=== PATIENT | female | born 1935 | race Caucasian/White ===

== ENCOUNTER 2017-07-24 10:32 | Inpatient (IN) | payer OTHER, MEDICARE ==
[~2017-07-24] VITALS: Ht 154.9 cm; Wt 49.6 kg
[~2017-07-24 10:32] MED LIST: ACIDOPHILUS1 EACH PO; AZITHROMYCIN250 M1 PO; CALCITRIOL0.5 MC1 PO; CEFUROXIME250 M1 PO; COUMADIN2.5 M1 PO; FUROSEMIDE20 M1 PO; FUROSEMIDE40 M1 PO; IRON325 M3 PO; LASIX40 M1 PO; MAGNESIUM400 M1 PO; METOPROLOL TART25 M1 PO; OMEPRAZOLE20 M2 PO; POTASSIUM CHLO20 ME2 PO; PROZAC20 M2 PO; QUESTRAN PACKET4 GM PO; TUMS200 MG PO; VITAMIN D2000 UNIT PO
[2017-07-24] MEDS ORDERED: FOLIC ACID1 M1 PO (10:52)
[2017-07-24] MEDS ORDERED: DIGOXIN250 MCG PO (10:52)
[2017-07-24] MEDS ORDERED: BUSPIRONE HCL5 M1 PO (10:53)
[2017-07-24] MEDS ORDERED: DILTIAZEM HCL30 M1 PO (10:54)
[2017-07-24] MEDS ORDERED: ZOFRAN4 M2 PO (10:55)
[2017-07-24] MEDS ORDERED: SIMETHICONE80 M1 PO (10:55)
--- NOTE | 2017-07-24 11:20 | ED AMS/SEIZURE/WEAK/DIZZY ---
History of Present Illness General Chief Complaint: General Adult Stated Complaint: BIBA FOR +N/?UTI Source: patient, family, old records, EMS Exam Limitations: no limitations Vital Signs & Intake/Output Vital Signs & Intake/Output Vital Signs Date Time Temp Pulse Resp B/P B/P Pulse O2 O2 Flow FiO2 Mean Ox Delivery Rate 07/27 1600 Nasal 2.0L Cannula 07/27 1508 97.8 63 20 116/60 92 07/27 0926 Nasal 2.0L Cannula 07/27 0915 Nasal 2.0L Cannula 07/27 0800 94 Nasal 2.0L Cannula 07/27 0720 97.8 56 20 128/72 92 Nasal Cannula 07/26 2358 97.9 69 16 116/60 100 Nasal 2.0L Cannula 07/26 2113 Nasal 2.0L Cannula ED Intake and Output 07/27 0000 07/26 1200 Intake Total 180 360 Output Total 100 350 Balance 80 10 Intake, Oral 180 360 Output, Urine 100 350 Allergies Coded Allergies: clarithromycin (From BIAXIN) (Severe, DIARRHEA 02/23/17) lactose (UNKNOWN 07/24/17) Reconcile Medications Buspirone HCl 5 MG TABLET 1 TAB PO BID MENTAL HEALTH (Reported) Cholestyramine (With Sugar) (Questran Packet) 4 GRAM POWD.PACK 1 PAC PO DAILY GI (Reported) Digoxin 250 MCG TABLET 1 TAB PO DAILY HEART (Reported) Diltiazem HCl 30 MG TABLET 1 TAB PO BID HEART (Reported) Fluoxetine HCl (Prozac) 20 MG CAPSULE 1 CAP PO QAM MENTAL HEALTH (Reported) Folic Acid 1 MG TABLET 1 TAB PO DAILY SUPPLEMENT (Reported) Furosemide 40 MG TABLET 1 TAB PO DAILY heart health take one pill daily Lactobacillus Acidophilus (Acidophilus) 1 EACH CAPSULE 2 CAP PO DAILY PROBIOTIC (Reported) Magnesium Oxide (Magnesium) 400 MG CAPSULE 1 CAP PO BID SUPPLEMENT (Reported) Metoprolol Tartrate 25 MG TABLET 1 TAB PO BID HEART/BLOOD (Reported) Ondansetron HCl (Zofran) 4 MG TABLET 1 TAB PO Q8P PRN NAUSEA/VOMITING ( Reported) Potassium Chloride 20 MEQ TAB.ER.PRT 1 TAB PO DAILY SUPPLEMENT (Reported) Simethicone 80 MG TAB.CHEW 1 TAB PO Q6-PRN PRN GAS (Reported) Warfarin Sodium (Coumadin) 2.5 MG TABLET 1 TAB PO DAILY BLOOD THINNER ( Reported) Triage Note: BIBA FROM [facility], SENT BY [facility], C/O WEAKNESS, FREQUENT URINATION, INCREASED LEG SWELLING X A FEW DAYS. DENIES CHEST PAIN OR SOB. Triage Nurses Notes Reviewed? yes Onset: Abrupt Duration: day(s): (1), constant Timing: recent history Severity: moderate Severity Numbers: 5 No Modifying Factors: none Associated Symptoms: denies HPI: 81-year-old female history of A. fib on Coumadin CHF valve replacement presents brought in by ambulance from assisted living after the patient was seen by the visiting nurse today complaining of generalized malaise weakness shortness of breath and leg swelling has been getting worse over the past week. She states she gained 5 pounds from yesterday. No associated chest pain palpitations dizziness lightheadedness she's been compliant with taking all of her medications including her Coumadin and Lasix which she is on 40 mg once a day. 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 No fever chills urinary urgency frequency dysuria. (Daryn Pham) Past History Travel History Traveled to [place] past 21 day No Medical History Any Pertinent Medical History? 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 MOTHER, ; Cause: Pancreatic cancer. Hx Contributory? No (Daryn Pham) Review of Systems Review of Systems Constitutional: Reports: see HPI. Comments Review of systems: See HPI, All other systems negative. Constitutional, no chills no fever HEENT: no sore throat no congestion, Cardiovascular: No chest pain , no palpitation Skin: no rashes, no change in skin Respiratory: No dyspnea no cough no sputum GI: No nausea no vomiting, no diarrhea, no bloating/constipation : No dysuria No hematuria, no frequency Muscle skeletal: No joint pain, no back pain Neurologic: , no headache Psych: No stress Heme/endocrine: No bruising (Daryn Pham) Physical Exam Physical Exam General Appearance: alert, awake Comments: Well-developed well-nourished person in no acute distress HEENT: Normal EENT exam; PERRL, EOMI, HEAD is atraumatic. moist mucous membranes. Neck: Supple,normal range of motion Back: Nontender, no CVA tenderness. Full range of motion Cardiovascular: Irregular rate and rhythm no murmurs Respiratory: Chest nontender.There were no bony deformities, no asymmetry. No respiratory distress. Patient speaking in full complete sentences. Crackles at the bases bilaterally Abdomen: Soft, nontender nondistended, no appreciable organomegaly. Normal bowel sounds. No rebound/guarding, No ascites. Extremity: 3+ b/l le edema, full range of motion of extremities, Neuro: Alert oriented x3, motor sensory normal, There were no obvious focal neurologic abnormalities. Skin: No appreciable rash on exposed skin, skin is warm and dry. Psych: Mood and affect is normal, memory and judgment is normal. Core Measures ACS in differential dx? Yes CVA/TIA Diagnosis No Sepsis Present: No Sepsis Focused Exam Completed? No (Daryn Pham) Progress Differential Diagnosis: arrythmia, anemia, dehydration, electrolyte imbalance, pneumonia, UTI/pyelo, chf ami Plan of Care: Orders Procedure Date/time Status MISSING MEDICATION FORM 07/27 906 Active CBC WITHOUT DIFFERENTIAL 07/28 815 Complete Anticipated Discharge 07/27 UNK Active OXYGEN 07/26 UNK Complete OXYGEN DAILY CHARGE 07/26 UNK Complete Current Medications Sig/Eulalia Start time Last Medication Dose Stop Time Status Admin Furosemide 40 MG 7:30 AM, & 4:30 PM 07/28 0730 AC (Lasix) Amoxicillin/ 875 MG BID 07/27 999 AC 07/27 Clavulanate Potassium 1049 (Augmentin) Cholestyramine Resin 1 PAC DAILY 07/25 1000 AC 07/27 (Questran Light(W/ 1049 Nutrasweet)Pack) Fluoxetine HCl 20 MG QAM 07/25 1000 AC 07/27 (Prozac) 1048 Folic Acid 1 MG DAILY 07/25 1000 AC 07/27 (Folic Acid) 1049 Lactobacillus 2 CAP DAILY 07/25 1000 AC 07/27 Acidophilus 1048 (Probiotic) Polyethylene Glycol 17 GM DAILY 07/25 1000 AC 07/27 (Miralax) 1048 Potassium Chloride 20 MEQ DAILY 07/25 1000 AC 07/27 (K-Dur) 1049 Ondansetron HCl 4 MG Q6P PRN 07/25 0100 AC (Zofran) Buspirone HCl 5 MG BID 07/24 2199 AC 07/27 (Buspar) 1049 Magnesium Oxide 400 MG BID 07/24 2199 AC 07/27 (Mag-Ox) 1049 Melatonin 5 MG AT BEDTIME 07/24 2199 AC 07/26 (Melatonin) 204 Acetaminophen 650 MG Q6P PRN 07/24 1800 AC (Tylenol) Morphine Sulfate 2 MG Q4P PRN 07/24 1800 AC (MORPHINE SULFATE) Simethicone 80 MG Q6-PRN PRN 07/24 1745 AC (Mylicon) Laboratory Tests 07/27/17 1220: CBC w Diff NO MAN DIFF REQ, RBC 3.93 L, MCV 96.1, MCH 31.4 H, MCHC 32.7 L, RDW 18.7 H, MPV 9.5, Gran % 73.7, Lymphocytes % 16.0 L, Monocytes % 9.6 H, Eosinophils % 0.3, Basophils % 0.4, Absolute Granulocytes 6.1, Absolute Lymphocytes 1.3, Absolute Monocytes 0.8 H, Absolute Eosinophils 0, Absolute Basophils 0 07/27/17 0757: Anion Gap 5, Estimated GFR > 60, BUN/Creatinine Ratio 35.0 H, PT 18.6 H, INR 1.70 H labs ordered, old records reviewed, case d/w dr dukes agrees with plan Corrected calcium within normal limits I spoke with Dr. Hassan covering for Dr. Cortes who agrees with plan patient medicated with Lasix 20 mg IV, patient has had episodes of bradycardia down into the 40s however she is alert and oriented length her her x-ray findings, lab work given presentation shortness of breath weight gain leg swelling I believe premature discharge would BE medically harmful which are in agreement with. Patient is not septic there is no signs of infection no elevated white blood cell count to explain elevated lactic acid. They feel comfortable plan and need for admission as well. Diagnostic Imaging: Viewed by Me: Radiology Read. Discussed w/RAD: Radiology Read. Initial ED EKG: afib at 70, nonspecificis [facility] (Daryn Pham) Departure Departure Time of Disposition: 1517 Disposition: STILL A PATIENT Condition: Stable Clinical Impression Primary Impression: CHF exacerbation Secondary Impressions: Bradycardia, Lactic acidosis Referrals: Elana MCKEON,Jesus Nguyen (PCP/Family) Departure Forms: Customer Survey General Discharge Information Admission Note Spoke With: Richard Montalvo MD Documentation of Exam: Documentation of any treatments & extenuating circumstances including Concerns Regarding Discharge (functional status, medication knowledge or non-compliance, living conditions, etc.) that warrant an admission rather than observation: [IV diuresis trend labs and electrolytes premature discharge would BE medically harmful cardiology consult (Daryn Pham) PA/[employer] Co-Sign Statement Statement: ED Attending supervision documentation- x I saw and evaluated the patient. I have also reviewed all the pertinent lab results and diagnostic results. I agree with the findings and the plan of care as documented in the PA's/LAB[employer]ER [employer]'s documentation. LIMON, CHF, pneumonia [] I have reviewed the ED Record and agree with the PA's/LAB[employer]ER [employer]'s documentation. [] Additions or exceptions (if any) to the PAs/LAB[employer]ER [employer]'s note and plan are summarized below: [] (Bryce MCKEON,Ahmet) Departure Forms: Customer Survey General Discharge Information Admission Note Spoke With: Richard Montalvo MD Documentation of Exam: Documentation of any treatments & extenuating circumstances including Concerns Regarding Discharge (functional status, medication knowledge or non-compliance, living conditions, etc.) that warrant an admission rather than observation: [IV diuresis trend labs and electrolytes premature discharge would BE medically harmful cardiology consult
[2017-07-24 12:38] LABS: ABSOLUTE BASOPHIL COUNT 0 /CUMM (0.0-0.2); ABSOLUTE EOSINOPHIL COUNT 0 /CUMM (0.0-0.7); ABSOLUTE GRANULOCYTE CT 3.9 /CUMM (1.4-6.5); ABSOLUTE LYMPH COUNT 0.9 /CUMM (1.2-3.4); ABSOLUTE MONOCYTE COUNT 0.5 /CUMM (0.10-0.60); BASOPHIL % 0.7 % (0.0-2.0); EOSINOPHIL % 0.3 % (0-5); GRANULOCYTE % 72.3 % (42.2-75.2); HEMATOCRIT 36.5 % (37-47); MEAN CORPUSCULAR HGB 31.3 PG (27.0-31.0); MEAN CORPUSCULAR HGB CONC 33.4 G/DL (33.0-37.0); MEAN CORPUSCULAR VOLUME 93.7 FL (81.0-99.0); MEAN PLATELET VOLUME 9.5 FL (7.4-10.4); PLATELET COUNT 138 /CUMM (130-400); RBC DISTRIBUTION WIDTH 17.1 % (11.5-14.5); WHITE BLOOD CELL COUNT 5.4 /CUMM (4.8-10.8)
[2017-07-24 12:58] LABS: PT 28.4 SEC (9.4-12.5); PTT 39 SEC (25-37)
--- NOTE | 2017-07-24 14:08 | RADIOLOGY REPORT ---
EXAMINATION: XR PORTABLE CHEST CLINICAL INFORMATION: Weakness, SOB and weight gain. COMPARISON: Chest CT 05/04/2017. TECHNIQUE: Portable frontal view of the chest was obtained. FINDINGS: The lungs are hypoexpanded with no acute consolidation seen. Increased interstitial markings are seen in both lung bases likely scarring. The heart size is enlarged. The pulmonary vascularity is normal. There are median sternotomy sutures from previous aortic valve replacement. No gross bony abnormality seen. IMPRESSION: No acute pulmonary process seen. Cardiomegaly without congestion.
--- NOTE | 2017-07-24 15:58 | History & Physical ---
Michelle MCKEON,[facility] 07/24/17 1557: General Information and HPI MD Statement: I have seen and personally examined NENA LUJAN and documented this H&P. The patient is a 81 year old F who presented with a patient stated chief complaint of [shortness of breath and lower extremity swelling]. Source of Information: patient Exam Limitations: no limitations History of Present Illness: MS. Lujan is an 81-year-old lady with past medical history of B-cell lymphoma in remission, atrial fibrillation, bioprosthetic valve, DVT on Coumadin, lupus anticoagulant, thalassemia, iron deficiency anemia, osteoporosis, GERD, admitted 2 times in April for acute on chronic CHF and pneumonia now presents with shortness of breath and lower extremity edema that she noticed last night. According to the patient, she was admitted to [facility] in April for pneumonia and was sent to [facility] [place] on discharge, from where she was sent to the assisted living last Monday. She Has been experiencing some shortness of breath since discharge from [facility] [place] which was worsened last night. She does not use oxygen at home. Has chronic orthopnea and uses 3 pillows to sleep at night. She gained almost 5 pounds (from 107 pounds 112 pounds ) since yesterday. Denies any chest pain or palpitation but endorses right-sided chest pressure, 6/10 in intensity with no radiation or aggravating/relieving factors but thinks the pain is because of her anxiety. She also noticed worsening swelling in her legs last night, states she could not get up and walk because of the weakness and swelling in her legs. She also complains of decreased appetite, nausea, and at least 2 episodes of vomiting per week which is bilious without any abdominal pain, diarrhea or constipation. Denies any fever/chills, cough, sputum production, urinary symptoms, sick contacts or recent travel. Allergies/Medications Allergies: Coded Allergies: clarithromycin (From BIAXIN) (Severe, DIARRHEA 02/23/17) lactose (UNKNOWN 07/24/17) Home Med list Buspirone HCl 5 MG TABLET 1 TAB PO BID MENTAL HEALTH (Reported) Cholestyramine (With Sugar) (Questran Packet) 4 GRAM POWD.PACK 1 PAC PO DAILY GI (Reported) Digoxin 250 MCG TABLET 1 TAB PO DAILY HEART (Reported) Diltiazem HCl 30 MG TABLET 1 TAB PO BID HEART (Reported) Fluoxetine HCl (Prozac) 20 MG CAPSULE 1 CAP PO QAM MENTAL HEALTH (Reported) Folic Acid 1 MG TABLET 1 TAB PO DAILY SUPPLEMENT (Reported) Furosemide 40 MG TABLET 1 TAB PO DAILY heart health take one pill daily Lactobacillus Acidophilus (Acidophilus) 1 EACH CAPSULE 2 CAP PO DAILY PROBIOTIC (Reported) Magnesium Oxide (Magnesium) 400 MG CAPSULE 1 CAP PO BID SUPPLEMENT (Reported) Metoprolol Tartrate 25 MG TABLET 1 TAB PO BID HEART/BLOOD (Reported) Ondansetron HCl (Zofran) 4 MG TABLET 1 TAB PO Q8P PRN NAUSEA/VOMITING ( Reported) Potassium Chloride 20 MEQ TAB.ER.PRT 1 TAB PO DAILY SUPPLEMENT (Reported) Simethicone 80 MG TAB.CHEW 1 TAB PO Q6-PRN PRN GAS (Reported) Warfarin Sodium (Coumadin) 2.5 MG TABLET 1 TAB PO DAILY BLOOD THINNER ( Reported) Past History Travel History Traveled to [place] past 21 day No Medical History Neurological: NONE EENT: NONE Cardiovascular: AFIB, CHF, VALVE REPLACEMENT Respiratory: NONE Gastrointestinal: GERD Hepatic: NONE Renal: NONE Musculoskeletal: NONE Psychiatric: NONE Endocrine: NONE Blood Disorders: anemia Cancer(s): 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 MOTHER, ; Cause: Pancreatic cancer. Psychosocial History Where do you live? Assisted Living ETOH Use: denies use Illicit Drug Use: denies illicit drug use Review of Systems Review of Systems Constitutional: Reports: weakness. EENTM: Reports: no symptoms. Cardiovascular: Reports: chest pain (Pressure), orthopena, peripheral edema. Respiratory: Reports: orthopnea, short of breath. GI: Reports: no symptoms. Genitourinary: Reports: no symptoms. Musculoskeletal: Reports: no symptoms. Skin: Reports: no symptoms. Neurological/Psychological: Reports: anxiety. Hematologic/Endocrine: Reports: no symptoms. Immunologic/Allergic: Reports: no symptoms. All Other Systems: Reviewed and Negative Exam & Diagnostic Data Last 24 Hrs of Vital Signs/I&O Vital Signs Date Time Temp Pulse Resp B/P B/P Pulse O2 O2 Flow FiO2 Mean Ox Delivery Rate 03/05 1850 97.2 56 18 119/78 100 Nasal 2.0L Cannula 07/24 1535 48 16 121/61 100 Nasal 2.0L Cannula 07/24 1310 46 20 118/56 96 Nasal 2.0L Cannula 07/24 1226 Nasal 2.0L Cannula 07/24 1038 96.5 72 20 122/64 95 Room Air Intake & Output 07/24 1600 07/24 0800 07/24 0000 Intake Total 0 Output Total Balance 0 Intake, Oral 0 Patient 112 lb Weight Weight Reported by Patient Measurement Method Physical Exam General Appearance Alert, Oriented X3, Cooperative, No Acute Distress Skin No Rashes, No Breakdown HEENT Atraumatic, PERRLA, EOMI, Mucous Membr. moist/pink Neck Supple, No JVD Cardiovascular Normal S1, Normal S2, Irregular Lungs Crackles on lung bases Abdomen Normal Bowel Sounds, No Tenderness, Distended Extremities No Clubbing, No Cyanosis, +2 pitting edema Last 24 Hrs of Labs/Merrill: Laboratory Tests 07/24/17 1937: Lactic Acid 2.1 07/24/17 1818: Troponin I 0.06 07/24/17 1731: Urine Color YEL, Urine Clarity HAZY H, Urine pH 6.5, Ur Specific [place] 1.010, Urine Protein NEG, Urine Ketones NEG, Urine Nitrite NEG, Urine Bilirubin NEG, Urine Urobilinogen 0.2, Ur Leukocyte Esterase TRACE H, Ur Microscopic SEDIMENT EXAMINED, Urine RBC RARE, Urine WBC 3-5 H, Ur Epithelial Cells FEW, Urine Bacteria MANY H, Hyaline Casts MOD H, Urine Hemoglobin NEG, Urine Glucose NEG 07/24/17 1218: Anion Gap 8, Estimated GFR 60, BUN/Creatinine Ratio 41.1 H, Glucose 96, Lactic Acid 3.0 H, Calcium 7.8 L, Total Bilirubin 0.6, AST 32, ALT 34, Alkaline Phosphatase 82, Troponin I 0.05, Xci-F-Nilaquelbyd Pept 4080 H, Total Protein 4.5 L, Albumin 2.2 L, Globulin 2.3, Albumin/Globulin Ratio 1.0 L, PT 28.4 H, INR 2.58 H, APTT 39 H, CBC w Diff NO MAN DIFF REQ, RBC 3.90 L, MCV 93.7, MCH 31.3 H, MCHC 33.4, RDW 17.1 H, MPV 9.5, Gran % 72.3, Lymphocytes % 17.5 L, Monocytes % 9.2, Eosinophils % 0.3, Basophils % 0.7, Absolute Granulocytes 3.9, Absolute Lymphocytes 0.9 L, Absolute Monocytes 0.5, Absolute Eosinophils 0, Absolute Basophils 0, Digoxin 4.0 *H Microbiology 07/24 1730 URINE ROUT: Urine Culture - CAN Cancelled: 07/24 1730 URINE ROUT: Urine Culture - RECD Diagnostic Data EKG Results Atrial fibrillation Heart Rate 57 CXR Results IMPRESSION: No acute pulmonary process seen. Cardiomegaly without congestion. Assessment/Plan Assessment: MS. Lujan is an 81-year-old lady with past medical history of B-cell lymphoma in remission, atrial fibrillation, bioprosthetic valve, DVT on Coumadin, lupus anticoagulant, thalassemia, iron deficiency anemia, osteoporosis, GERD, admitted 2 times in April for acute on chronic CHF and pneumonia now presents with shortness of breath and lower extremity edema that she noticed last night. Even though patients dose not have an elevated JVD and CXR does not show any fluid overload, and the elevated proBNP, shortness of breath, crackles on examination and lower extremity edema with abdominal distention likely suggests CHF exacerbation. Her nausea and vomiting could be due to side effects from elevated digoxin level. Problem List; 1. Acute on Chronic Diastolic CHF 2. Anasarca 2. LActic Acidosis 3. Nausea/Vomiting 4. Elevated Digoxin Levels - We will admit the patient to telemetry floor - We'll start the patient on IV Lasix 40 mg daily - Troponin and EKG x 3 to rule out ACS. - Recent echocardiogram was in February 2017 which showed ejection fraction of greater than 65% in no regional wall motion abnormality but moderate to severe right and left atrial dilatation. - Cardiology consult; awaiting recommendations. - We will repeat lactic acid level. ?? hypoperfusion. - Detox and level of 4 , We will hold digoxin for now. - Zofran as needed for nausea and vomiting - Continue rest of the home medications. DVT prophylaxis; subcutaneous heparin Patient is DNR/DNI As Ranked By This Provider Problem List: 1. Lactic acidosis 2. CHF exacerbation 3. Atrial fibrillation 4. History of DVT (deep vein thrombosis) Core Measures/Misc (02/05) Acute Coronary Syndrome ACS Diagnosis: No Congestive Heart Failure Congestive Heart Failure Diagnosis Yes Last Known EF % 65 Cerebrovascular Accident CVA/TIA Diagnosis: No VTE (View Protocol) VTE Risk Factors Age>40 No Mechanical VTE Prophylaxis d/t N/A MechProphylax Ordered No VTE Pharm Prophylaxis d/t NA PharmProphylax ordered Sepsis (View protocol) Sepsis Present: No Magdi Cooper MD 07/24/172103: Resident Review Statement Resident Statement: examined this patient, discussed with internet project manager, agreed with internet project manager Other Findings: The patient is an 81-year-old woman with a past medical history of B-cell lymphoma in remission, atrial fibrillation on coumadin, bioprosthetic aortic valve, DVT, lupus anticoagulant, thalassemia, iron deficiency anemia, osteoporosis, GERD, and 2 admissions in April 2017 for acute on chronic CHF and pneumonia. She now presents with worsening shortness of breath and leg swelling for the past 2 days. THe patient was admitted for treatment of pneumonia in [facility] in April 2017 and was subsequently sent to rehab in [facility] in May 2017. She was then released back to assisted living on Monday, 3 days ago. However, 2 days prior to presentation she developed generalized weakness, shortness of breath and leg swelling. She reported a change in her weight from 107 lbs yesterday to 112 lbs yesterday. She also experienced intermittent non- radiating right sided chest discomfort that she rates as 6/10 intensity. She also has lightheadedness and 3 pillow orthopnea-which is her baseline, but denies palpitations. She denies cough, sputum production or wheeze. She has been having nausea and vomitting at least twice weekly for the past 3 weeks and she vomitted billous fluid yesterday. She complains of poor appetite and noted abdominal bloating, distension and discomfort for the last 2 days but denied diarrhea or blood in stools. She denied dysuria or hematuria, but has noted a reduction in her urine output for the past 2 days. She denies fevers or chills. Patient states that she has been compliant on her medications including PO lasix 40 mg daily and also has been on a low salt diet. Vital signs at presentation showed a temperature of 96.5 F, Pulse 72 bpm, BP 122 /64 mmhg, R 20/min, PO2 95 % on RA. Physical exam General Appearance: Alert, Oriented X3, Cooperative, No Acute Distress Skin: No Rashes, No Breakdown HEENT: Atraumatic, PERRLA, EOMI, Mucous Membr. moist/pink Neck: Supple, No JVD, no cervical lymphadenopathy Cardiovascular: Normal S1, Normal S2, Irregularly irregular heart rhythm Lungs: Bilateral basal crepitations Abdomen: Normal Bowel Sounds, No Tenderness, Distended Neuro: CN II to XII intact, normal strenght globally. Extremities compresssion stockings in situ, No Clubbing, No Cyanosis, +2 pitting edema Significant labs WBC 5.4, Hb 12.2 g/dl, Hct 36.5%, Platelets 138/cumm. INR 2.58. Na 133, K 4.2, Cl 93, Co2 32, BUN 37, Creat 0.9, Lactic acid 3.0, Calcium 7.8 (corrected Ca 9.2 ) Pro BNP 4080, troponin 0.05. Digoxin level 4. Urinalysis trace leuk esterase, WBCs 3-5/HPF, bacteria many. Imaging: CXR no acute pulmonary process Impression 1. Acute exacerbation of heart failure with preserved ejection fraction 2. Digoxin toxicity with nausea and vomitting/gastritis 3. Lactic acidosis 4. Atrial fibrillation on coumadin 5. Anxiety and depression Plan * Admit to telemetry * Oxygen by nasal canula to keep PO2 > 92% * Diurese with IV lasix 40 mg daily * Echocardiogram in the morning * Previous echocardiogram from Feb 2017 showed EF of >65% and Moderate mitral regurgitation * Cardiology consultation * Serial EKGs and troponins X3 * Hold digoxin * IV zofran 4 mg Q 6 hrs Prn * Trand lactic acid-no sign of infection at this time * Follow up urine culture * Monitor K and Magnesium * Continue magox 400 mg BID * Continue PO metoprolol and cardizem for atrial fibrillation * INR in the morning and dose coumadin to keep INR for 2-3 * Continue buspirone and prozac * DVT prophylaxis with Coumadin * CHF diet * Pain management with tylenol PRN and IV morphine for severe pain * Code status is DNR/DNI Richard Montalvo MD 07/24/172113: Attending MD Review Statement Attending Statement Attending MD Statement: examined this patient, discuss w/resident/PA/VULCAN CREWMEMBER, agreed w/resident/PA/VULCAN CREWMEMBER, reviewed EMR data (avail), reviewed images, amended to note Attending Assessment/Plan: The patient is an 81 yo female with h/o B-cell Lymphoma (in remission), afib, s/ p bioprosthetic valve, DVT/lupus anticoagulant (on Coumadin), anemia, osteoporosis, GERD, and CHF who presented on the day of admission with c/o dyspnea and lower extremity swelling, weakness, and frequent urination x 3 days. She denied any chest pain, dyspnea, or palpitations. Has had some distension of her abdomen w/o significant pain. She has had some nausea and vomiting. Physical Exam: VS: T 06.5, P 72, R 20, BP 122/64, PO 96% on RA- 96% on 2L HEENT: eyes- PERRLA, EOMI mark- dry mucosa Neck: no JVD/bruits Chest: + rales lower 1/3 lung ovalle Cor: sl irreg, nl rate, nl S1, S2 with +2/6 sys murm LSB Abd: BS+, soft, distended (gas), non-tender Ext: 2+ edema, stasis changes, 1+ pulses Neuro: alert & oriented x 3, non-focal exam Labs/Test- as above Impression/Plan: #Acute on Chronic Preserved EF CHF- EF was > 65% on last ECHO 03/07. Has known valvular disease. BNP is over 4000. CXR w/o significant CHF. Plan: Diuresis as above (cautious)- follow I/O's and daily weights and lung exam. Cardiology consult. Check serial Troponin levels. #Gastritis- Nausea and vomiting most c/w Digoxin Toxicity with Dig level 4.0. Plan: Hold Digoxin and monitor for arrhythmia closely. Monitor K and Mg levels and avoid hypokalemia. Consider Digibind if develops arrhythmia. #Lactic Acidosis- no evidence of sepsis. Concern regarding possible ischemic bowel, although no abdominal pain. Plan: Follow-up lactate level. Follow abdominal exam. #H/O DVT- on Chronic Coumadin. Plan: Continue Coumadin INR 2-3. #Atrial Fibrillation- HR controlled at present. Plan: Continue Metoprolol/Diltiazem- hold Digoxin.
--- NOTE | 2017-07-24 21:40 | Admission Certification ---
Admission Certification Certification Statement - As attending physician, I certify that at the time of - admission, based on clinical presentation, severity of - symptoms, need for further diagnostic testing and - therapeutic interventions, and risk of adverse outcomes - without in-hospital treatment, in my clinical assessment, - this patient requires an acute hospital stay for a minimum - of two nights or longer. I have also considered psychsocial - factors such as support system, advanced age, financial - issues, cognitive issues, and failed out-patient treatments, - past re-admission history, safety of patient, and lack of - compliance as applicable. Specific rationale supporting this admission is: The patient presents with Digoxin toxicity and acute on chronic CHF. Needs telemetry admission to monitor for arrhthymia, hold Digonin, check troponins, IV Lasix. Cardiology consult, Check troponin levels.
[2017-07-25 06:39] LABS: PT 28.4 SEC (9.4-12.5)
--- NOTE | 2017-07-25 07:14 | PN- Housestaff ---
Michelle MCKEON,[facility] 07/25/17 0714: Subjective Follow-up For: 1. Acute on Chronic Diastolic CHF 2. Anasarca 2. LActic Acidosis 3. Nausea/Vomiting 4. Elevated Digoxin Levels Subjective: Patient resting cofortably, no new complaints, Continues to have SOB and peripheral edema. Review of Systems Constitutional: Reports: malaise, weakness. EENTM: Reports: no symptoms. Cardiovascular: Reports: orthopena, peripheral edema. Respiratory: Reports: short of breath. Gastrointestinal: Reports: no symptoms. Genitourinary: Reports: no symptoms. Musculoskeletal: Reports: no symptoms. Skin: Reports: no symptoms. Neurological/Psychological: Reports: no symptoms. Hematologic/Endocrine: Reports: no symptoms. Immunologic/Allergic: Reports: no symptoms. Objective Last 24 Hrs of Vital Signs/I&O Vital Signs Date Time Temp Pulse Resp B/P B/P Pulse O2 O2 Flow FiO2 Mean Ox Delivery Rate 07/25 1422 98.1 52 18 97/52 98 Nasal 2.0L Cannula 07/25 1043 106/62 07/25 1043 54 106/62 07/25 0906 100 Nasal 2.0L Cannula 07/25 0718 97.9 54 16 106/62 100 Nasal 2.0L Cannula 07/24 2344 96.8 55 18 108/69 100 Nasal 2.0L Cannula 07/24 1850 97.2 56 18 119/78 100 Nasal 2.0L Cannula Intake & Output 07/25 1600 07/25 0800 07/25 0000 Intake Total Output Total 1050 Balance -1050 Number 2 Bowel Movements Output, Urine 1050 Patient 107 lb Weight Physical Exam General Appearance: Alert, Oriented X3, Cooperative, malnourished Skin: No Rashes, No Breakdown Cardiovascular: Normal S1, Normal S2, Irregular Lungs: basilar crackles Abdomen: Normal Bowel Sounds, Soft, No Tenderness, Distended Extremities: No Clubbing, No Cyanosis, +2-3 pitting edema Current Medications: Current Medications Sig/Eulalia Start time Last Medication Dose Route Stop Time Status Admin Acetaminophen 650 MG Q6P PRN 07/24 1800 AC PO Atropine Sulfate 0.5 MG ONCE ONE 07/25 1700 UNVr SC 07/25 1701 Buspirone HCl 5 MG BID 07/24 2200 AC 07/25 PO 1043 Cholestyramine Resin 1 PAC DAILY 07/25 1000 AC 07/25 PO 1043 Dextrose 25 GM ONCE ONE 07/25 1700 UNVr IV 07/25 1701 Diltiazem HCl 30 MG BID 07/24 2200 AC 07/25 PO 1043 Fluoxetine HCl 20 MG QAM 07/25 1000 AC 07/25 PO 1043 Folic Acid 1 MG DAILY 07/25 1000 AC 07/25 PO 1043 Furosemide 0 .STK-MED ONE 07/25 0739 DC IV Furosemide 40 MG 7:30AM 07/25 0730 AC 07/25 IV 0815 Furosemide 0 .STK-MED ONE 07/24 1919 DC IV Furosemide 20 MG ONCE ONE 07/24 1800 DC 07/24 IV 07/24 1801 1919 Heparin Sodium 0 .STK-MED ONE 07/25 0028 DC (Porcine) .ROUTE Heparin Sodium 5,000 UNIT Q8 07/24 220 DC 07/25 (Porcine) SC 0030 Lactobacillus 2 CAP DAILY 07/25 1000 AC 07/25 Acidophilus PO 1043 Magnesium Oxide 400 MG BID 07/24 2200 AC 07/25 PO 1043 Magnesium Sulfate 1 GM Q2H 07/25 0915 DC 07/25 Dextrose/Water 100 ML IV 07/25 1314 1239 Melatonin 5 MG AT BEDTIME 07/24 2200 AC PO Metoprolol Tartrate 25 MG BID 07/24 2359 AC 07/25 PO 1043 Morphine Sulfate 2 MG Q4P PRN 07/24 1800 AC IV Ondansetron HCl 4 MG Q6P PRN 07/25 0100 AC IV Ondansetron HCl 4 MG ONCE ONE 07/24 1845 DC 07/24 PO 07/24 1846 1845 Polyethylene Glycol 17 GM DAILY 07/25 1000 AC 07/25 PO 1043 Potassium Chloride 0 .STK-MED ONE 07/25 1006 DC PO Potassium Chloride 20 MEQ DAILY 07/25 1000 AC 07/25 PO 1043 Potassium Chloride 40 MEQ ONCE ONE 07/25 0915 DC 07/25 PO 07/25 0916 1043 Simethicone 80 MG Q6-PRN PRN 07/24 1745 AC PO Last 24 Hrs of Lab/Merrill Results Last 24 Hrs of Labs/Mics: Laboratory Tests 07/25/17 0807: Anion Gap 5, Estimated GFR > 60, BUN/Creatinine Ratio 37.5 H, Magnesium 1.5 L 07/25/17 0615: Lactic Acid 0.8, PT 28.4 H, INR 2.58 H 07/25/17 0045: Troponin I 0.06 07/24/17 1937: Lactic Acid 2.1 07/24/17 1818: Troponin I 0.06 07/24/17 1731: Urine Color YEL, Urine Clarity HAZY H, Urine pH 6.5, Ur Specific [place] 1.010, Urine Protein NEG, Urine Ketones NEG, Urine Nitrite NEG, Urine Bilirubin NEG, Urine Urobilinogen 0.2, Ur Leukocyte Esterase TRACE H, Ur Microscopic SEDIMENT EXAMINED, Urine RBC RARE, Urine WBC 3-5 H, Ur Epithelial Cells FEW, Urine Bacteria MANY H, Hyaline Casts MOD H, Urine Hemoglobin NEG, Urine Glucose NEG Microbiology 07/24 1730 URINE ROUT: Urine Culture - CAN Cancelled: 07/24 1730 URINE ROUT: Urine Culture - RES GRAM NEGATIVE RODS Assessment/Plan Assessment: MS. Lujan is an 81-year-old lady with past medical history of B-cell lymphoma in remission, atrial fibrillation, bioprosthetic valve, DVT on Coumadin, lupus anticoagulant, thalassemia, iron deficiency anemia, osteoporosis, GERD, admitted 2 times in April for acute on chronic CHF and pneumonia now presents with shortness of breath and lower extremity edema that she noticed last night. Problem List; 1. Acute on Chronic Diastolic CHF 2. Anasarca 2. LActic Acidosis - resolved 3. Nausea/Vomiting 4. Elevated Digoxin Levels - Continue IV Lasix 40 mg daily - ACS ruled out with negative Troponin and EKG x 3. - Recent Echo in Feb 2017, no need for repeat echocardiogram. - Cardiology consult; awaiting recommendations. - Continue to hold digoxin, will repeat levels tomorrow. - Zofran as needed for nausea and vomiting - Continue rest of the home medications. DVT prophylaxis; subcutaneous heparin Patient is DNR/DNI Problem List: 1. Fluid overload 2. Lactic acidosis 3. CHF exacerbation Pain Ratin Pain Location: None Pain Goal: Remain pain free Pain Plan: None Tomorrow's Labs & Rationales: BEP(On IV Lasix) Genet MCKEON,Jeannie 07/26/17 0739: Attending MD Review Statement Attending Statement Attending MD Statement: examined this patient, discuss w/resident/PA/AGED OR DISABLED CARER, agreed w/resident/PA/AGED OR DISABLED CARER, reviewed EMR data (avail), discussed with nursing, reviewed images, amended to note Attending Assessment/Plan: Patient seen and examined. Resting comfortably not in acute distress. Proximal feeling better compared to presentation. Denies shortness of breath or chest pain. Currently hemodynamically stable. On examination she has decreased breath sounds in the bases with bibasilar crackles. She has bilateral pedal edema. Continue current dose of diuretics. Continue to hold digoxin.
--- NOTE | 2017-07-25 14:37 | Cons- Cardiology ---
General Information and HPI Consulting Request Date of Consult: 07/25/17 Requested By: Jeannie De León MD Reason for Consult: Congestive heart failure History of Present Illness: The patient is an 81-year-old female with history of B-cell lymphoma in remission, paroxysmalatrial fibrillation, bioprosthetic aortic valve, lupus anticoagulant, chronic diastolic heart failure, and DVT on Coumadin. She presented with complaint of cough, shortness of breath, and weakness. The patient was seen by her visiting nurse this morning who reported that she was not feeling well and arrange for her to be sent to the hospital. She had a cough for the past few weeks, and the shortness of breath began this morning. The cough is productive of yellowish greenish sputum. She is taking 40 mg per day of Lasix which was recently increased on her previous admission. The patient recently moved to [facility], [place]. No chest pain. No syncope. No lightheadedness or dizziness. No nausea or vomiting. She was treated with calcium gluconate in the emergency department. Allergies/Medications Allergies: Coded Allergies: clarithromycin (From BIAXIN) (Severe, DIARRHEA 02/23/17) lactose (UNKNOWN 07/24/17) Home Med List: Buspirone HCl 5 MG TABLET 1 TAB PO BID MENTAL HEALTH (Reported) Cholestyramine (With Sugar) (Questran Packet) 4 GRAM POWD.PACK 1 PAC PO DAILY GI (Reported) Digoxin 250 MCG TABLET 1 TAB PO DAILY HEART (Reported) Diltiazem HCl 30 MG TABLET 1 TAB PO BID HEART (Reported) Fluoxetine HCl (Prozac) 20 MG CAPSULE 1 CAP PO QAM MENTAL HEALTH (Reported) Folic Acid 1 MG TABLET 1 TAB PO DAILY SUPPLEMENT (Reported) Furosemide 40 MG TABLET 1 TAB PO DAILY heart health take one pill daily Lactobacillus Acidophilus (Acidophilus) 1 EACH CAPSULE 2 CAP PO DAILY PROBIOTIC (Reported) Magnesium Oxide (Magnesium) 400 MG CAPSULE 1 CAP PO BID SUPPLEMENT (Reported) Metoprolol Tartrate 25 MG TABLET 1 TAB PO BID HEART/BLOOD (Reported) Ondansetron HCl (Zofran) 4 MG TABLET 1 TAB PO Q8P PRN NAUSEA/VOMITING ( Reported) Potassium Chloride 20 MEQ TAB.ER.PRT 1 TAB PO DAILY SUPPLEMENT (Reported) Simethicone 80 MG TAB.CHEW 1 TAB PO Q6-PRN PRN GAS (Reported) Warfarin Sodium (Coumadin) 2.5 MG TABLET 1 TAB PO DAILY BLOOD THINNER ( Reported) Current Medications: Current Medications Sig/Eulalia Start time Last Medication Dose Route Stop Time Status Admin Acetaminophen 650 MG Q6P PRN 07/24 1800 AC PO Atropine Sulfate 0.5 MG ONCE ONE 07/25 1700 CAN SC 07/25 1701 Atropine Sulfate 1 MG ONE ONE 07/25 1700 DC IV 07/25 1701 Buspirone HCl 5 MG BID 07/24 2200 AC 07/25 PO 1043 Cholestyramine Resin 1 PAC DAILY 07/25 1000 AC 07/25 PO 1043 Dextrose 25 GM ONCE ONE 07/25 1745 DC IV 07/25 1746 Dextrose 25 GM ONCE ONE 07/25 1700 DC 07/25 IV 07/25 1701 1709 Dextrose/Water 1,000 ML .Q20H 07/25 1745 DC IV 07/26 1344 Diltiazem HCl 30 MG BID 07/24 2200 AC 07/25 PO 1043 Fluoxetine HCl 20 MG QAM 07/25 1000 AC 07/25 PO 1043 Folic Acid 1 MG DAILY 07/25 1000 AC 07/25 PO 1043 Furosemide 0 .STK-MED ONE 07/25 0739 DC IV Furosemide 40 MG 7:30AM 07/25 0730 AC 07/25 IV 0815 Heparin Sodium 0 .STK-MED ONE 07/25 0028 DC (Porcine) .ROUTE Heparin Sodium 5,000 UNIT Q8 07/24 220 DC 07/25 (Porcine) SC 0030 Lactobacillus 2 CAP DAILY 07/25 1000 AC 07/25 Acidophilus PO 1043 Magnesium Oxide 400 MG BID 07/24 2200 AC 07/25 PO 1043 Magnesium Sulfate 1 GM Q2H 07/25 0915 DC 07/25 Dextrose/Water 100 ML IV 07/25 1314 1239 Melatonin 5 MG AT BEDTIME 07/24 2200 AC PO Metoprolol Tartrate 25 MG BID 07/24 2359 AC 07/25 PO 1043 Morphine Sulfate 2 MG Q4P PRN 07/24 1800 AC IV Ondansetron HCl 4 MG Q6P PRN 07/25 0100 AC IV Polyethylene Glycol 17 GM DAILY 07/25 1000 AC 07/25 PO 1043 Potassium Chloride 0 .STK-MED ONE 07/25 1006 DC PO Potassium Chloride 20 MEQ DAILY 07/25 1000 AC 07/25 PO 1043 Potassium Chloride 40 MEQ ONCE ONE 07/25 914 DC 07/25 PO 07/25 0916 1043 Simethicone 80 MG Q6-PRN PRN 07/24 1745 AC PO Review of Systems Review of Systems: No rash. No tremor. No melena. No hemoptysis. All other systems were reviewed, and were noted to be negative. 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 MOTHER, ; Cause: Pancreatic cancer. Psychosocial History Where Do You Live? Assisted Living Smoking Status: Former Smoker ETOH Use: denies use Illicit Drug Use: denies illicit drug use Exam & Diagnostic Data Vital Signs and I&O Vital Signs Date Time Temp Pulse Resp B/P B/P Pulse O2 O2 Flow FiO2 Mean Ox Delivery Rate 07/25 1713 41 106/52 07/25 1630 98.0 57 18 92 Nasal 2.0L Cannula 07/25 1600 97 Nasal 2.0L Cannula 07/25 1422 98.1 52 18 97/52 98 Nasal 2.0L Cannula 07/25 1043 106/62 07/25 1043 54 106/62 07/25 0906 100 Nasal 2.0L Cannula 07/25 0718 97.9 54 16 106/62 100 Nasal 2.0L Cannula 07/24 2344 96.8 55 18 108/69 100 Nasal 2.0L Cannula Intake & Output 07/25 1600 07/25 0800 07/25 0000 07/24 1600 07/24 0800 07/24 0000 Intake Total 0 Output Total 1050 Balance -1050 0 Intake, Oral 0 Number 2 Bowel Movements Output, Urine 1050 Patient 107 lb 112 lb Weight Weight Reported by Patient Measurement Method Physical Exam: Gen: The patient is in no acute distress HEENT: Normal nose, ears, and oropharynx. Pupils equal bilaterally. Conjunctiva normal. Neck: Supple with no JVD, no masses, and no thyromegaly Lungs: Clear to auscultation with normal respiratory effort Heart: Irregularly irregular S1, S2, 1 out of 6 systolic murmur. 2+ peripheral edema, 2+ pulses in the lower extremities bilaterally Abdomen: Soft, nontender, no masses. No hepatomegaly. No splenomegaly Extremities: No clubbing or cyanosis. Normal muscle strength in the upper and lower extremities Skin: Normal skin turgor with no skin ulcers or lesions noted. Neuro: Cranial nerves intact. Sensation intact Psych: Alert and oriented x 3 with appropriate affect Labs/Merrill Results: Laboratory Tests 07/25 07/25 07/25 07/25 07/25 1748 1748 1748 0807 0615 Chemistry Sodium (137 - 145 mmol/L) Pending 135 L Potassium (3.5 - 5.1 mmol/L) Pending 3.6 Chloride (98 - 107 mmol/L) Pending 95 L Carbon Dioxide (22 - 30 mmol/L) Pending 35 H Anion Gap (5 - 16) Pending 5 BUN (7 - 17 mg/dL) Pending 30 H Creatinine (0.5 - 1.0 mg/dL) Pending 0.8 Estimated GFR (>60 ml/min) > 60 BUN/Creatinine Ratio (7 - 25 %) Pending 37.5 H Glucose (65 - 99 mg/dL) 149 H Lactic Acid (0.7 - 2.1 mmol/L) 0.8 Magnesium (1.6 - 2.3 mg/dL) 1.5 L Troponin I Cancelled Pending Cortisol PM Sample Pending Coagulation PT (9.4 - 12.5 SEC) 28.4 H INR (0.90 - 1.19) 2.58 H 07/25 07/24 07/24 07/24 0045 1937 1818 1731 Chemistry Lactic Acid (0.7 - 2.1 mmol/L) 2.1 Troponin I (< 0.11 ng/ml) 0.06 0.06 Urines Urine Color (YEL,AMB,STR) YEL Urine Clarity (CLEAR) HAZY H Urine pH (5.0 - 8.0) 6.5 Ur Specific [place] (1.001 - 1.035) 1.010 Urine Protein (NEG,<30 MG/DL) NEG Urine Ketones (NEG) NEG Urine Nitrite (NEG) NEG Urine Bilirubin (NEG) NEG Urine Urobilinogen (0.1 - 1.0 EU/dl) 0.2 Ur Leukocyte Esterase (NEG) TRACE H Ur Microscopic SEDIMENT EXAMINED Urine RBC (0 - 5 /HPF) RARE Urine WBC (0 - 2 /HPF) 3-5 H Ur Epithelial Cells (NONE,FEW) FEW Urine Bacteria (NEG/NONE) MANY H Hyaline Casts (0/LPF) MOD H Urine Hemoglobin (NEG) NEG Urine Glucose (N MG/DL) NEG 07/24 1218 Chemistry Sodium (137 - 145 mmol/L) 133 L Potassium (3.5 - 5.1 mmol/L) 4.2 Chloride (98 - 107 mmol/L) 93 L Carbon Dioxide (22 - 30 mmol/L) 32 H Anion Gap (5 - 16) 8 BUN (7 - 17 mg/dL) 37 H Creatinine (0.5 - 1.0 mg/dL) 0.9 Estimated GFR (>60 ml/min) 60 BUN/Creatinine Ratio (7 - 25 %) 41.1 H Glucose (65 - 99 mg/dL) 96 Lactic Acid (0.7 - 2.1 mmol/L) 3.0 H Calcium (8.4 - 10.2 mg/dL) 7.8 L Total Bilirubin (0.2 - 1.3 mg/dL) 0.6 AST (14 - 36 U/L) 32 ALT (9 - 52 U/L) 34 Alkaline Phosphatase (<127 U/L) 82 Troponin I (< 0.11 ng/ml) 0.05 Eil-G-Bdjshwuakhv Pept (<125 pg/mL) 4080 H Total Protein (6.3 - 8.2 g/dL) 4.5 L Albumin (3.5 - 5.0 g/dL) 2.2 L Globulin (1.9 - 4.2 gm/dL) 2.3 Albumin/Globulin Ratio (1.1 - 2.2 %) 1.0 L Coagulation PT (9.4 - 12.5 SEC) 28.4 H INR (0.90 - 1.19) 2.58 H APTT (25 - 37 SEC) 39 H Hematology CBC w Diff NO MAN DIFF REQ WBC (4.8 - 10.8 /CUMM) 5.4 RBC (4.20 - 5.40 /CUMM) 3.90 L Hgb (12.0 - 16.0 G/DL) 12.2 Hct (37 - 47 %) 36.5 L MCV (81.0 - 99.0 FL) 93.7 MCH (27.0 - 31.0 PG) 31.3 H MCHC (33.0 - 37.0 G/DL) 33.4 RDW (11.5 - 14.5 %) 17.1 H Plt Count (130 - 400 /CUMM) 138 MPV (7.4 - 10.4 FL) 9.5 Gran % (42.2 - 75.2 %) 72.3 Lymphocytes % (20.5 - 51.1 %) 17.5 L Monocytes % (1.7 - 9.3 %) 9.2 Eosinophils % (0 - 5 %) 0.3 Basophils % (0.0 - 2.0 %) 0.7 Absolute Granulocytes (1.4 - 6.5 /CUMM) 3.9 Absolute Lymphocytes (1.2 - 3.4 /CUMM) 0.9 L Absolute Monocytes (0.10 - 0.60 /CUMM) 0.5 Absolute Eosinophils (0.0 - 0.7 /CUMM) 0 Absolute Basophils (0.0 - 0.2 /CUMM) 0 Toxicology Digoxin (0.8 - 2.0 ng/mL) 4.0 *H Diagnostic Data EKG Results A-Fib at 56, inferior and anterior infarcts age undet CXR Results No acute pulmonary process seen. Cardiomegaly without congestion. Other Results Echocardiogram 02/27/17: Normal left ventricular ejection fraction visually estimated at >65 Moderate to severe right atrial dilatation. Moderate to severe left atrial dilatation. Mild thickening/calcification of the mitral valve leaflets. Moderate to marked mitral annular calcification. Moderate mitral regurgitation. Focal thickening of the aortic valve cusps. No aortic stenosis. Moderate tricuspid regurgitation. Right ventricular systolic pressure estimated to be at upper limits of normal at 35 mmHg. Assessment/Plan Assessment/Plan The patient is an 81-year-old female with history of paroxysmal atrial fibrillation, B-cell lymphoma, bioprosthetic aortic valve, DVT on Coumadin, lupus anticoagulant who presents with shortness of breath, cough, lower extremity edema. The etiology of her symptoms is unclear at this point. There may be a component of acute on chronic diastolic heart failure, and I agree with diuretic therapy. Digoxin level is elevated suggesting possible digoxin toxicity. Recommendations: * Monitor on telemetry * Discontinue digoxin * Check serial troponin * Echocardiogram * Hold metoprolol and diltiazem for bradycardia and borderline hypotension Consult Acknowledgment - Thank you for your consult request.
--- NOTE | 2017-07-25 17:08 | Event Note ---
See Addendum Event Note Event Note: Situation: Was paged by the nurse because the patient has bradycardia with heart rate in the 40s blood pressure was 86/60 and hypoglycemia with blood sugar 50, the patient was sitting comfortably in bed in no acute distress and denies any complaints except for weakness. Background 81-year-old lady with past medical history of B-cell lymphoma in remission, atrial fibrillation, bioprosthetic valve, DVT on Coumadin, lupus anticoagulant, thalassemia, iron deficiency anemia, osteoporosis, GERD, admitted 2 times in April for acute on chronic CHF and pneumonia now presents with shortness of breath and lower extremity edema that she noticed last night. Her active issues include elevated digoxin level, anasarca, nausea and vomiting, acute on chronic diastolic heart failure Assessment and plan -Differential diagnosis of her bradycardia includes digoxin overdose, electrolyte disturbances, adrenal insufficiency given that the patient was on chronic steroids 5 mg for arthritis, currently she is hospitalized and under stress which might uncovered to her adrenal insufficiency -Currently the patient is asymptomatic, will closely monitor her heart rate, if continues to be bradycardic or become symptomatic we will give atropine 0.5 mg IV (it is kept at the bedside) -We will evaluate for the need of temporary pacemaker (at the bedside) -Patient was given orange juice and 25 g dextrose 50% IV once -We will check random blood sugar, random cortisol level, BEP, EKG, To follow
[2017-07-25 17:13] VITALS: BP 106/52
[2017-07-25 22:12] VITALS: BP 102/60
[2017-07-26 07:18] VITALS: BP 98/54
--- NOTE | 2017-07-26 07:47 | PN- Housestaff ---
"See Addendum Subjective Follow-up For: 1. Acute on Chronic Diastolic CHF 2. Anasarca 2. LActic Acidosis 3. Nausea/Vomiting 4. Elevated Digoxin Levels Tele-Events Since Last Visit: Atrial fibrillation Heart rate 36-42 Subjective: Patient complains of lightheadedness/dizziness when she woke up this morning but it resolved gradually, denies any chest pain, palpitations, loss of consciousness or worsening shortness of breath, breathing has actually improved somewhat since admission. Nausea is also getting better and she has been able to eat without any nausea and vomiting. Review of Systems Constitutional: Reports: no symptoms. EENTM: Reports: no symptoms. Cardiovascular: Reports: orthopena, peripheral edema. Respiratory: Reports: short of breath. Gastrointestinal: Reports: no symptoms. Genitourinary: Reports: no symptoms. Musculoskeletal: Reports: no symptoms. Skin: Reports: no symptoms. Neurological/Psychological: Reports: no symptoms. Hematologic/Endocrine: Reports: no symptoms. Immunologic/Allergic: Reports: no symptoms. Objective Last 24 Hrs of Vital Signs/I&O Vital Signs Date Time Temp Pulse Resp B/P B/P Pulse O2 O2 Flow FiO2 Mean Ox Delivery Rate 07/26 717 97.7 46 18 98/54 90 Nasal Cannula 07/25 2212 98.3 41 14 102/60 91 Nasal 2.0L Cannula 07/25 2126 Nasal 2.0L Cannula 07/25 2118 40 102/60 /06 2118 40 102/60 / 1713 41 106/52 / 1630 98.0 57 18 92 Nasal 2.0L Cannula 07/25 1600 97 Nasal 2.0L Cannula 07/25 1422 98.1 52 18 97/52 98 Nasal 2.0L Cannula Intake & Output 07/26 1600 07/26 0800 07/26 0000 Intake Total 360 120 Output Total 350 Balance 10 120 Intake, Oral 360 120 Output, Urine 350 Patient 118 lb Weight Weight Bed scale Measurement Method Physical Exam General Appearance: Alert, Oriented X3, Cooperative Skin: No Rashes, No Breakdown Cardiovascular: Normal S1, Normal S2, irregular Lungs: bibasilar crackles Abdomen: Normal Bowel Sounds, Soft, No Tenderness, distended Extremities: No Clubbing, No Cyanosis, +2 pitting edema Current Medications: Current Medications Sig/Eulalia Start time Last Medication Dose Route Stop Time Status Admin Acetaminophen 650 MG Q6P PRN 07/24 1800 AC PO Atropine Sulfate 0.5 MG ONCE ONE 07/25 1700 CAN SC 07/25 1701 Atropine Sulfate 1 MG ONE ONE 07/25 1700 DC IV 07/25 1701 Buspirone HCl 5 MG BID 07/24 2200 AC 07/26 PO 0958 Cholestyramine Resin 1 PAC DAILY 07/25 1000 AC 07/26 PO 0958 Dextrose 12.5 GM ONCE ONE 07/26 0700 DC 07/26 IV 07/26 0701 0652 Dextrose 25 GM ONCE ONE 07/26 0630 CAN IV 07/26 0631 Dextrose 25 GM ONCE ONE 07/25 1745 DC IV 07/25 1746 Dextrose 25 GM ONCE ONE 07/25 1700 DC 07/25 IV 07/25 1701 1709 Dextrose/Water 1,000 ML .Q20H 07/25 1745 DC IV 07/26 1344 Diltiazem HCl 30 MG BID 07/26 1000 CAN PO Diltiazem HCl 30 MG BID 07/24 2200 DC 07/25 PO 1043 Fluoxetine HCl 20 MG QAM 07/25 1000 AC 07/26 PO 0958 Folic Acid 1 MG DAILY 07/25 1000 AC 07/26 PO 0958 Furosemide 40 MG 7:30AM 07/25 0730 DC 07/25 IV 0815 Lactobacillus 2 CAP DAILY 07/25 1000 AC 07/26 Acidophilus PO 0958 Magnesium Oxide 400 MG BID 07/24 2200 AC 07/26 PO 0958 Melatonin 5 MG AT BEDTIME 07/24 2200 AC 07/25 PO 2118 Metoprolol Tartrate 25 MG BID 07/26 1000 CAN PO Metoprolol Tartrate 25 MG BID 07/24 2359 DC 07/25 PO 1043 Morphine Sulfate 2 MG Q4P PRN 07/24 1800 AC IV Ondansetron HCl 4 MG Q6P PRN 07/25 0100 AC IV Patient Medication 1 ED ONE ONE 07/26 1145 DC Teaching ED 07/26 1146 Polyethylene Glycol 17 GM DAILY 07/25 1000 AC 07/26 PO 0957 Potassium Chloride 20 MEQ DAILY 07/25 1000 AC 07/26 PO 0958 Simethicone 80 MG Q6-PRN PRN 07/24 1745 AC PO Last 24 Hrs of Lab/Merrill Results Last 24 Hrs of Labs/Mics: Laboratory Tests 07/26/17 0855: PT 22.9 H, INR 2.09 H 07/26/17 0635: Glucose Cancelled, Troponin I Cancelled 07/26/17 0635: Anion Gap 4 L, Estimated GFR > 60, BUN/Creatinine Ratio 37.5 H, Glucose 63 L, Troponin I 0.06, Digoxin 2.3 H 07/25/17 1940: Anion Gap 4 L, Estimated GFR > 60, BUN/Creatinine Ratio 38.8 H, Troponin I 0.07, Cortisol PM Sample 15.3 H 07/25/17 1748: Troponin I Cancelled 07/25/17 1748: Glucose 149 H Assessment/Plan Assessment: MS. Lujan is an 81-year-old lady with past medical history of B-cell lymphoma in remission, atrial fibrillation, bioprosthetic valve, DVT on Coumadin, lupus anticoagulant, thalassemia, iron deficiency anemia, osteoporosis, GERD, admitted 2 times in April for acute on chronic CHF and pneumonia now presents with shortness of breath and lower extremity edema that she noticed last night. Problem List; 1. Acute on Chronic Diastolic CHF 2. Anasarca 2. LActic Acidosis - resolved 3. Nausea/Vomiting - resolved 4. Elevated Digoxin Levels -We will hold IV Lasix today given no evidence of fluid overload on chest x-ray, we will reassess the need of IV Lasix tomorrow. - Continue to hold metoprolol and Cardizem for borderline hypotension and bradycardia. - And in a supplemental oxygen to keep O2 above 92%. - Cardiology consult; appreciate recommendations. - Digoxin level 2.3, continue to hold digoxin. - Zofran as needed for nausea and vomiting - Continue rest of the home medications. DVT prophylaxis; subcutaneous heparin Patient is DNR/DNI Problem List: 1. CHF exacerbation 2. Bradycardia Pain Ratin Pain Location: None Pain Goal: Remain pain free Pain Plan: None Tomorrow's Labs & Rationales: BEP(evaluated bicarbonate on Lasix|)"
--- NOTE | 2017-07-26 08:25 | PN- Cardiology ---
Subjective Subjective: Stable; denies any symptoms; confused ("I am not in the hospital") Objective Vital Signs and I&Os Vital Signs Date Time Temp Pulse Resp B/P B/P Pulse O2 O2 Flow FiO2 Mean Ox Delivery Rate 07/26 717 97.7 46 18 98/54 90 Nasal Cannula 07/25 2212 98.3 41 14 102/60 91 Nasal 2.0L Cannula 07/25 2125 Nasal 2.0L Cannula 07/25 2118 40 102/60 07/25 2118 40 102/60 07/25 1713 41 106/52 07/25 1630 98.0 57 18 92 Nasal 2.0L Cannula 07/25 1600 97 Nasal 2.0L Cannula 07/25 1422 98.1 52 18 97/52 98 Nasal 2.0L Cannula 07/25 1043 106/62 07/25 1043 54 106/62 07/25 0906 100 Nasal 2.0L Cannula Intake & Output 07/26 1600 07/26 0800 07/26 0000 07/25 1600 07/25 0800 07/25 0000 Intake Total 360 120 Output Total 350 1050 Balance 10 120 -1050 Intake, Oral 360 120 Number 2 Bowel Movements Output, Urine 350 1050 Patient 118 lb 107 lb Weight Weight Bed scale Measurement Method Physical Exam: General Appearance: thin, elderly female,Alert, Oriented but mildly confused Skin: Normal Cardiovascular: irregular S1, S2; 1/6 systolic murmur Lungs: bibasilar crackles Abdomen: Normal Bowel Sounds, Soft, No Tenderness, distended Extremities: No Clubbing, No Cyanosis, +2 pitting edema Current Medications: Current Medications Sig/Eulalia Start time Last Medication Dose Route Stop Time Status Admin Acetaminophen 650 MG Q6P PRN 07/24 1800 AC PO Atropine Sulfate 0.5 MG ONCE ONE 07/25 1700 CAN SC 07/25 1701 Atropine Sulfate 1 MG ONE ONE 07/25 1700 DC IV 07/25 1701 Buspirone HCl 5 MG BID 07/24 2200 AC 07/25 PO 2118 Cholestyramine Resin 1 PAC DAILY 07/25 1000 AC 07/25 PO 1043 Dextrose 12.5 GM ONCE ONE 07/26 0700 DC 07/26 IV 07/26 0701 0652 Dextrose 25 GM ONCE ONE 07/26 0630 CAN IV 07/26 0631 Dextrose 25 GM ONCE ONE 07/25 1745 DC IV 07/25 1746 Dextrose 25 GM ONCE ONE 07/25 1700 DC 03/ IV 07/25 1701 1709 Dextrose/Water 1,000 ML .Q20H 07/25 1745 DC IV 07/26 1344 Diltiazem HCl 30 MG BID 07/26 1000 CAN PO Diltiazem HCl 30 MG BID 07/24 2200 DC 07/25 PO 1043 Fluoxetine HCl 20 MG QAM 07/25 1000 AC 07/25 PO 1043 Folic Acid 1 MG DAILY 07/25 1000 AC 07/25 PO 1043 Furosemide 40 MG 7:30AM 07/25 0730 AC 07/25 IV 0815 Lactobacillus 2 CAP DAILY 07/25 1000 AC 07/25 Acidophilus PO 1043 Magnesium Oxide 400 MG BID 07/24 2200 AC 07/25 PO 2118 Magnesium Sulfate 1 GM Q2H 07/25 0915 DC 07/25 Dextrose/Water 100 ML IV 07/25 1314 1239 Melatonin 5 MG AT BEDTIME 07/24 2200 AC 07/25 PO 2118 Metoprolol Tartrate 25 MG BID 07/26 1000 CAN PO Metoprolol Tartrate 25 MG BID 07/24 2359 DC 07/25 PO 1043 Morphine Sulfate 2 MG Q4P PRN 07/24 1800 AC IV Ondansetron HCl 4 MG Q6P PRN 07/25 0100 AC IV Polyethylene Glycol 17 GM DAILY 07/25 1000 AC 07/25 PO 1043 Potassium Chloride 0 .STK-MED ONE 07/25 1006 DC PO Potassium Chloride 20 MEQ DAILY 07/25 1000 AC 07/25 PO 1043 Potassium Chloride 40 MEQ ONCE ONE 07/25 0915 DC 07/25 PO 07/25 0916 1043 Simethicone 80 MG Q6-PRN PRN 07/24 1745 AC PO Results Last 48 Hrs of Labs/Mics: Laboratory Tests 07/26/17 0635: Glucose Cancelled, Troponin I Cancelled 07/26/17 0635: Sodium Pending, Potassium Pending, Chloride Pending, Carbon Dioxide Pending, Anion Gap Pending, BUN Pending, Creatinine Pending, BUN/Creatinine Ratio Pending , Glucose Pending, Troponin I Pending, Digoxin Pending 07/25/17 1940: Anion Gap 4 L, Estimated GFR > 60, BUN/Creatinine Ratio 38.8 H, Troponin I 0.07, Cortisol PM Sample 15.3 H 07/25/17 1748: Troponin I Cancelled 07/25/17 1748: Glucose 149 H 07/25/17 0807: Anion Gap 5, Estimated GFR > 60, BUN/Creatinine Ratio 37.5 H, Magnesium 1.5 L 07/25/17 0615: Lactic Acid 0.8, PT 28.4 H, INR 2.58 H 07/25/17 0045: Troponin I 0.06 07/24/17 1937: Lactic Acid 2.1 07/24/17 1818: Troponin I 0.06 07/24/17 1731: Urine Color YEL, Urine Clarity HAZY H, Urine pH 6.5, Ur Specific [place] 1.010, Urine Protein NEG, Urine Ketones NEG, Urine Nitrite NEG, Urine Bilirubin NEG, Urine Urobilinogen 0.2, Ur Leukocyte Esterase TRACE H, Ur Microscopic SEDIMENT EXAMINED, Urine RBC RARE, Urine WBC 3-5 H, Ur Epithelial Cells FEW, Urine Bacteria MANY H, Hyaline Casts MOD H, Urine Hemoglobin NEG, Urine Glucose NEG 07/24/17 1218: Anion Gap 8, Estimated GFR 60, BUN/Creatinine Ratio 41.1 H, Glucose 96, Lactic Acid 3.0 H, Calcium 7.8 L, Total Bilirubin 0.6, AST 32, ALT 34, Alkaline Phosphatase 82, Troponin I 0.05, Uyw-Q-Oocxmjbolwe Pept 4080 H, Total Protein 4.5 L, Albumin 2.2 L, Globulin 2.3, Albumin/Globulin Ratio 1.0 L, PT 28.4 H, INR 2.58 H, APTT 39 H, CBC w Diff NO MAN DIFF REQ, RBC 3.90 L, MCV 93.7, MCH 31.3 H, MCHC 33.4, RDW 17.1 H, MPV 9.5, Gran % 72.3, Lymphocytes % 17.5 L, Monocytes % 9.2, Eosinophils % 0.3, Basophils % 0.7, Absolute Granulocytes 3.9, Absolute Lymphocytes 0.9 L, Absolute Monocytes 0.5, Absolute Eosinophils 0, Absolute Basophils 0, Digoxin 4.0 *H Assessment/Plan Assessment/Plan Assessment: 1. Worsening shortness of breath; possibly related to acute on chronic HFpEF 2. Paroxysmal atrial fibrillation with bradycardia 3. History of B-cell lymphoma 4. Bioprosthetic aortic valve 5. History of DVT on warfarin 6. History of lupus anticoagulant Recommendations: * continue to Monitor on telemetry * digoxin discontinued; continue to hold any other rate lowering medications for now; continue gentle diuresis with monitoring of intake, outputs, daily weights * serial troponins negative * Echocardiogram pending * Hold metoprolol and diltiazem for bradycardia and borderline hypotension Continue telemetry? Yes
[2017-07-26 09:59] LABS: PT 22.9 SEC (9.4-12.5)
[2017-07-26 14:00] VITALS: BP 100/64
[2017-07-26 23:58] VITALS: BP 116/60
[2017-07-27 07:20] VITALS: BP 128/72
--- NOTE | 2017-07-27 07:29 | PN- Housestaff ---
Michelle MCKEON,[facility] 07/27/17 0728: Subjective Follow-up For: 1. Acute on Chronic Diastolic CHF 2. UTI 3. Lactic Acidosis - Resolved 4. Nausea/Vomiting - Resolved 5. Elevated Digoxin Levels Tele-Events Since Last Visit: Atrial Fibrillation Heart Rate 55-70 Subjective: Patient oriented x 2(time and person), Hallucination saying her Grand daughter had a MVA and she went for the this am. States her breathing has improved. Review of Systems Constitutional: Reports: no symptoms. EENTM: Reports: no symptoms. Cardiovascular: Reports: no symptoms. Respiratory: Reports: no symptoms. Gastrointestinal: Reports: no symptoms. Genitourinary: Reports: no symptoms. Musculoskeletal: Reports: no symptoms. Skin: Reports: no symptoms. Neurological/Psychological: Reports: no symptoms. Hematologic/Endocrine: Reports: no symptoms. Immunologic/Allergic: Reports: no symptoms. Objective Last 24 Hrs of Vital Signs/I&O Vital Signs Date Time Temp Pulse Resp B/P B/P Pulse O2 O2 Flow FiO2 Mean Ox Delivery Rate 07/27 925 Nasal 2.0L Cannula 07/27 0915 Nasal 2.0L Cannula 07/27 0720 97.8 56 20 128/72 92 Nasal Cannula 07/26 2358 97.9 69 16 116/60 100 Nasal 2.0L Cannula 07/26 2113 Nasal 2.0L Cannula 07/26 1400 98.0 56 20 100/64 93 Intake & Output 07/27 1600 08 0800 07/27 0000 Intake Total 360 180 Output Total 300 Balance 60 180 Intake, Oral 360 180 Number 1 Bowel Movements Output, Urine 300 Patient 115 lb Weight Physical Exam General Appearance: Alert, Cooperative, Oriented to time and person only Skin: No Rashes, No Breakdown Cardiovascular: Normal S1, Normal S2, Irregular Lungs: Bibasilar crackles Abdomen: Normal Bowel Sounds, Soft, No Tenderness, mild distension Extremities: No Clubbing, No Cyanosis, +1 pitting edema Current Medications: Current Medications Sig/Eulalia Start time Last Medication Dose Route Stop Time Status Admin Acetaminophen 650 MG Q6P PRN 07/24 1800 AC PO Amoxicillin/ 875 MG BID 07/27 1000 AC Clavulanate Potassium PO Buspirone HCl 5 MG BID 07/24 2200 AC 07/26 PO 204 Cholestyramine Resin 1 PAC DAILY 07/25 1000 AC 07/26 PO 0958 Fluoxetine HCl 20 MG QAM 07/25 1000 AC 07/26 PO 0958 Folic Acid 1 MG DAILY 07/25 1000 AC 07/26 PO 0958 Lactobacillus 2 CAP DAILY 07/25 1000 AC 07/26 Acidophilus PO 09 Magnesium Oxide 400 MG BID 07/24 2200 AC 07/26 PO 204 Melatonin 5 MG AT BEDTIME 07/24 2200 AC 07/26 PO 204 Morphine Sulfate 2 MG Q4P PRN 07/24 1800 AC IV Ondansetron HCl 4 MG Q6P PRN 07/25 0100 AC IV Patient Medication 1 ED ONE ONE 07/26 1145 ND Teaching ED 07/26 1146 Polyethylene Glycol 17 GM DAILY 07/25 1000 AC 07/26 PO 0957 Potassium Chloride 20 MEQ DAILY 07/25 1000 AC 07/26 PO 0958 Ramelteon 8 MG ONCE ONE 07/27 0115 DC 07/27 PO 07/27 0116 0254 Simethicone 80 MG Q6-PRN PRN 07/24 1745 AC PO Warfarin Sodium 2.5 MG COUMADIN 1700 ONE 07/26 1700 DC 07/26 PO 07/26 1701 1829 Last 24 Hrs of Lab/Merrill Results Last 24 Hrs of Labs/Mics: Laboratory Tests 07/27/17 0757: Anion Gap 5, Estimated GFR > 60, BUN/Creatinine Ratio 35.0 H, PT 18.6 H, INR 1.70 H Assessment/Plan Assessment: MS. Lujan is an 81-year-old lady with past medical history of B-cell lymphoma in remission, atrial fibrillation, bioprosthetic valve, DVT on Coumadin, lupus anticoagulant, thalassemia, iron deficiency anemia, osteoporosis, GERD, admitted 2 times in April for acute on chronic CHF and pneumonia now presents with shortness of breath and lower extremity edema that she noticed last night. Problem List; 1. Acute on Chronic Diastolic CHF 2. UTI 3. Lactic Acidosis - Resolved 4. Nausea/Vomiting - Resolved 5. Elevated Digoxin Levels - Continue Holding Lasix, metoprolol and Cardizem for borderline hypotension and bradycardia. Blood pressure 128/72 this am. - Continue supplemental oxygen to keep O2 above 92%. - Cardiology consult; appreciate recommendations. - Digoxin level 2.3, continue to hold digoxin. - Zofran as needed for nausea and vomiting - Urine Cx growing E.Coli and with acute worsening of patients mental status will start her on Augmentin x 3 days. - discontinue lyons - Continue rest of the home medications. DVT prophylaxis; subcutaneous heparin Patient is DNR/DNI Problem List: 1. Bradycardia 2. CHF exacerbation 3. UTI (urinary tract infection) Pain Ratin Pain Location: None Pain Goal: Remain pain free Pain Plan: Pain Pathway Tomorrow's Labs & Rationales: None Genet MCKEON,Jeannie 07/27/17 1359: Attending MD Review Statement Attending Statement Attending MD Statement: examined this patient, discuss w/resident/PA/FURNISHINGS CONSERVATOR, agreed w/resident/PA/FURNISHINGS CONSERVATOR, reviewed EMR data (avail), discussed with nursing, discussed with case mgmt, amended to note Attending Assessment/Plan: Patient seen and examined. Resting comfortably not in any acute distress. overnight nurses have reported her to be agitated. Son is present at the bedside. Patient is currently alert and oriented 3. Son does report that she is having periods of confusion. Patient is afebrile hemodynamically stable. She has no leukocytosis. She denies any urinary symptoms however a history is suboptimal given her confusion. Urine cultures currently growing E. coli. On examination she is not in any acute distress. Lungs are clear bilaterally. Abdomen is soft and nontender. She has bilateral pedal edema. She has had no significant bradycardia on telemetry monitoring overnight. Recommendations: -In view of her positive urine cultures on current change in mental status will treat empirically for cystitis with Augmentin for the next 3 days. -She has been transitioned to oral diuretic therapy. -If she continues to diurese appropriately and remains hemodynamically stable she may be discharged tomorrow. -She will be discharged to intermediate facility for rehabilitation. I did have an extensive conversation with the son at the bedside. -He reports that her clinical status has been declining steadily. He reports that following her last hospitalization she was discharged to intermediate facility. She was discharged home to an assisted living facility but was therefore only 3 days before returning to the hospital. He is aware of her comorbidities and steady decline in functional status. He is looking into long- term care at the intermediate facility. He is also open to proceeding palliative care for the patient as his main focus is to Provided his mother with decent quality of life. -Upon discharge to the intermediate facility tomorrow we are recommending evaluation by palliative care services.
[2017-07-27 08:56] LABS: PT 18.6 SEC (9.4-12.5)
--- NOTE | 2017-07-27 09:34 | ECHOCARDIOGRAM REPORT ---
NENA GILLIAM Age: 81 : 1935 Gender: F Exam Date: 07/26/2017 08:47 Exam Location: 1 [address] Ht (in): 61 Wt (lb): 117 BSA: 1.52 BP: 98 / 54 Ordering Physician: Tapan Aranda MD Referring Physician: Tapan Aranda MD Technologist: Rick Acuna [facility] Room Number: 174-2 Indications: ACUTE PULMONARY EMBOLISM Rhythm: Atrial fibrillation Technical Quality: Fair FINDINGS Left Ventricle Normal size left ventricle. Normal left ventricular wall thickness. Normal left ventricular ejection fraction visually estimated at > 60%. No obvious regional wall motion abnormalities. Right Ventricle Normal right ventricular size and function. Right Atrium Moderate to severe right atrial dilatation. Left Atrium Moderate to severe left atrial dilatation. Mitral Valve Moderate to severe mitral annular calcification. Moderate mitral regurgitation. Aortic Valve Aortic valve thickened. Mild aortic stenosis. Tricuspid Valve Tricuspid valve not well visualized, grossly normal. Moderate tricuspid regurgitation. No evidence of pulmonary hypertension. Pulmonic Valve Pulmonic valve not well visualized, grossly normal. Trace pulmonic regurgitation. Pericardium No pericardial effusion. Great Vessels Normal size aortic root. CONCLUSIONS Normal left ventricular ejection fraction visually estimated at > 60%. Normal size left ventricle. Moderate to severe right atrial dilatation. Moderate to severe left atrial dilatation. Moderate mitral regurgitation. Mild aortic stenosis. Moderate tricuspid regurgitation. Trace pulmonic regurgitation. Pipe Beltran M.D. (Electronically Signed) Final Date: 27 July 2017 09:33 MEASUREMENTS (Male / Female) Normal Values 2D ECHO LV Diastolic Diameter PLAX 3.5 cm 4.2 - 5.9 / 3.9 - 5.3 cm LV Systolic Diameter PLAX 1.7 cm 2.1 - 4.0 cm LV Fractional Shortening PLAX 51.4 % 25 - 46 % LV Ejection Fraction 2D Teich 83.5 % IVS Diastolic Thickness 1.1 cm LVPW Diastolic Thickness 1.2 cm LV Relative Wall Thickness 0.7 LVOT Diameter 1.7 cm Aortic Root Diameter 2.3 cm LA Volume 97.0 cm 18 - 58 / 22 - 52 cm Ascending Aorta Diameter 3.5 cm DOPPLER AV Peak Velocity 216.0 cm/s AV Peak Gradient 18.7 mmHg AV Mean Velocity 120.0 cm/s AV Mean Gradient 8.0 mmHg AV Velocity Time Integral 41.0 cm LVOT Peak Velocity 79.0 cm/s LVOT Peak Gradient 2.5 mmHg LVOT Mean Velocity 44.4 cm/s LVOT Mean Gradient 1.0 mmHg LVOT Velocity Time Integral 13.7 cm LVOT Stroke Volume 31.1 cm AV Area Cont Eq vti 0.8 cm AV Area Cont Eq pk 0.8 cm MR Peak Velocity 483.0 cm/s MR Peak Gradient 93.3 mmHg TR Peak Velocity 251.0 cm/s TR Peak Gradient 25.2 mmHg Right Atrial Pressure 5.0 mmHg Pulmonary Artery Systolic Pressu 30.2 mmHg Right Ventricular Systolic Press 30.2 mmHg PV Peak Velocity 77.2 cm/s PV Peak Gradient 2.4 mmHg PV Mean Velocity 49.7 cm/s PV Mean Gradient 1.0 mmHg PV Velocity Time Integral 16.1 cm
--- NOTE | 2017-07-27 10:11 | PN- Cardiology ---
Subjective Subjective: No chest pain. No shortness breath. No palpitations. No lightheadedness or dizziness. No nausea or vomiting Objective Vital Signs and I&Os Vital Signs Date Time Temp Pulse Resp B/P B/P Pulse O2 O2 Flow FiO2 Mean Ox Delivery Rate 07/27 925 Nasal 2.0L Cannula 07/27 914 Nasal 2.0L Cannula 07/28 719 97.8 56 20 128/72 92 Nasal Cannula 07/26 2358 97.9 69 16 116/60 100 Nasal 2.0L Cannula 07/26 2113 Nasal 2.0L Cannula 07/26 1400 98.0 56 20 100/64 93 Intake & Output 07/27 1600 07/27 0800 07/27 0000 07/26 1600 07/26 0800 07/26 0000 Intake Total 360 180 360 120 Output Total 300 100 350 Balance 60 180 -100 10 120 Intake, Oral 360 180 360 120 Number 1 Bowel Movements Output, Urine 300 100 350 Patient 115 lb 118 lb Weight Weight Bed scale Measurement Method Physical Exam: Gen: The patient is in no acute distress HEENT: Normal nose, ears, and oropharynx. Pupils equal bilaterally. Conjunctiva normal. Neck: Supple with no JVD, no masses, and no thyromegaly Lungs: Clear to auscultation with normal respiratory effort Heart: Irregularly irregular S1, S2, 1 out of 6 systolic murmur. 2+ peripheral edema, 2+ pulses in the lower extremities bilaterally Abdomen: Soft, nontender, no masses. No hepatomegaly. No splenomegaly Extremities: No clubbing or cyanosis. Normal muscle strength in the upper and lower extremities Skin: Normal skin turgor with no skin ulcers or lesions noted. Neuro: Cranial nerves intact. Sensation intact Current Medications: Current Medications Sig/Eulalia Start time Last Medication Dose Route Stop Time Status Admin Acetaminophen 650 MG Q6P PRN 07/24 1800 AC PO Amoxicillin/ 875 MG BID 07/27 1000 AC Clavulanate Potassium PO Buspirone HCl 5 MG BID 07/24 2199 AC 07/26 PO 204 Cholestyramine Resin 1 PAC DAILY 07/25 1000 AC 07/26 PO 0958 Fluoxetine HCl 20 MG QAM 07/25 1000 AC 07/26 PO 0958 Folic Acid 1 MG DAILY 07/25 1000 AC 07/26 PO 0958 Lactobacillus 2 CAP DAILY 07/25 1000 AC 07/26 Acidophilus PO 0958 Magnesium Oxide 400 MG BID 07/24 2199 AC 07/26 PO 2040 Melatonin 5 MG AT BEDTIME 07/24 2199 AC 07/26 PO 204 Morphine Sulfate 2 MG Q4P PRN 07/24 1800 AC IV Ondansetron HCl 4 MG Q6P PRN 07/25 0100 AC IV Patient Medication 1 ED ONE ONE 07/26 1145 DC Teaching ED 07/26 1146 Polyethylene Glycol 17 GM DAILY 07/25 1000 AC 07/26 PO 0957 Potassium Chloride 20 MEQ DAILY 07/25 1000 AC 07/26 PO 0958 Ramelteon 8 MG ONCE ONE 07/27 0115 DC 07/27 PO 07/27 0116 0254 Simethicone 80 MG Q6-PRN PRN 07/24 1745 AC PO Warfarin Sodium 2.5 MG COUMADIN 1700 ONE 07/26 1700 DC 07/26 PO 07/26 1701 1829 Results Last 48 Hrs of Labs/Mics: Laboratory Tests 07/27/17 0757: Anion Gap 5, Estimated GFR > 60, BUN/Creatinine Ratio 35.0 H, PT 18.6 H, INR 1.70 H 07/26/17 0855: PT 22.9 H, INR 2.09 H 07/26/17 0635: Glucose Cancelled, Troponin I Cancelled 07/26/17 0635: Anion Gap 4 L, Estimated GFR > 60, BUN/Creatinine Ratio 37.5 H, Glucose 63 L, Troponin I 0.06, Digoxin 2.3 H 07/25/17 1940: Anion Gap 4 L, Estimated GFR > 60, BUN/Creatinine Ratio 38.8 H, Troponin I 0.07, Cortisol PM Sample 15.3 H 07/25/17 1748: Troponin I Cancelled 07/25/17 1748: Glucose 149 H Recent Imaging Studies: Echocardiogram 07/27/17: Normal left ventricular ejection fraction visually estimated at > 60%. Normal size left ventricle. Moderate to severe right atrial dilatation. Moderate to severe left atrial dilatation. Moderate mitral regurgitation. Mild aortic stenosis. Moderate tricuspid regurgitation. Trace pulmonic regurgitation. Assessment/Plan Assessment/Plan Assessment: 1. Worsening shortness of breath; possibly related to acute on chronic HFpEF 2. Paroxysmal atrial fibrillation with bradycardia 3. History of B-cell lymphoma 4. Bioprosthetic aortic valve 5. History of DVT on warfarin 6. History of lupus anticoagulant Plan: * Would change Lasix to 40 mg po bid * Digoxin discontinued. * Metoprolol and diltiazem on hold for bradycardia * Dose warfarin for INR 2-3 Continue telemetry? Yes
[2017-07-27 13:24] LABS: ABSOLUTE BASOPHIL COUNT 0 /CUMM (0.0-0.2); ABSOLUTE EOSINOPHIL COUNT 0 /CUMM (0.0-0.7); ABSOLUTE GRANULOCYTE CT 6.1 /CUMM (1.4-6.5); ABSOLUTE LYMPH COUNT 1.3 /CUMM (1.2-3.4); ABSOLUTE MONOCYTE COUNT 0.8 /CUMM (0.10-0.60); BASOPHIL % 0.4 % (0.0-2.0); EOSINOPHIL % 0.3 % (0-5); GRANULOCYTE % 73.7 % (42.2-75.2); HEMATOCRIT 37.8 % (37-47); MEAN CORPUSCULAR HGB 31.4 PG (27.0-31.0); MEAN CORPUSCULAR HGB CONC 32.7 G/DL (33.0-37.0); MEAN CORPUSCULAR VOLUME 96.1 FL (81.0-99.0); MEAN PLATELET VOLUME 9.5 FL (7.4-10.4); PLATELET COUNT 137 /CUMM (130-400); RBC DISTRIBUTION WIDTH 18.7 % (11.5-14.5); RED BLOOD CELL CT 3.93 /CUMM (4.20-5.40)
[2017-07-27 13:48] LABS: WHITE BLOOD CELL COUNT 8.3 /CUMM (4.8-10.8)
[2017-07-27 15:08] VITALS: BP 116/60
[2017-07-27 23:04] VITALS: BP 118/72
[2017-07-28 06:18] VITALS: BP 104/68
--- NOTE | 2017-07-28 07:19 | Discharge Summary ---
Visit Information Visit Dates Admission Date: 07/24/17 Discharge Date: 08/01/2017 Hospital Course Course Attending Physician: Jeannie De León MD Primary Care Physician: Jesus Huitron MD Consulting Request: 1 Consulting Specialty: Cardiology Consulting Physician: Dr. Beltran Reason for Consult: heart failure with preserved ejection fraction Consulting Request: 2 Consulting Specialty: Endocrinology Consulting Physician: Dr. Hughes Reason for Consult: Hypoglycemic episodes Hospital Course: The patient is an 81-year-old woman with a past medical history of B-cell lymphoma in remission, atrial fibrillation on coumadin, bioprosthetic aortic valve, DVT, lupus anticoagulant, thalassemia, iron deficiency anemia, osteoporosis, GERD, dementia and 2 admissions in April 2017 for acute on chronic heart failure with preserved ejection fraction and pneumonia. She presented with worsening shortness of breath and leg swelling for 2 days. Prior to this admission, the patient had been admitted for treatment of pneumonia in [facility] in April 2017 and was subsequently sent to rehab in [facility] in May 2017. She was then released back to assisted living on 3 days prior to her present symptoms. However, 2 days prior to presentation she developed generalized weakness, shortness of breath and leg swelling. She reported a change in her weight from 107 lbs yesterday to 112 lbs over 24 hours and she also experienced intermittent non-radiating right sided chest discomfort that was rated as 6/10 intensity. She also had lightheadedness and 3 pillow orthopnea-which is her baseline, but denied palpitations. She denied cough, sputum production or wheeze. She had been having nausea and vomitting at least twice weekly for the previous 3 weeks and she vomitted billous fluid on the day of presentation. She complained of poor appetite and noted abdominal bloating, distension and discomfort for 2 days but denied diarrhea or blood in stools. She denied dysuria or hematuria, but has noted a reduction in her urine output for the past 2 days. She denied fevers or chills. Vital signs at presentation showed a temperature of 96.5 F, Pulse 72 bpm, BP 122 /64 mmhg, R 20/min, PO2 95 % on RA. Physical exam at presentation: General Appearance: Alert, Oriented X3, Cooperative, No Acute Distress Skin: No Rashes, No Breakdown HEENT: Atraumatic, PERRLA, EOMI, Mucous Membr. moist/pink Neck: Supple, No JVD, no cervical lymphadenopathy Cardiovascular: Normal S1, Normal S2, Irregularly irregular heart rhythm Lungs: Bilateral basal crepitations Abdomen: Normal Bowel Sounds, No Tenderness, Distended Neuro: CN II to XII intact, normal strenght globally. Extremities compresssion stockings in situ, No Clubbing, No Cyanosis, +2 pitting edema Significant labs WBC 5.4, Hb 12.2 g/dl, Hct 36.5%, Platelets 138/cumm. INR 2.58. Na 133, K 4.2, Cl 93, Co2 32, BUN 37, Creat 0.9, Lactic acid 3.0, Calcium 7.8 (corrected Ca 9.2 ) Pro BNP 4080, troponin 0.05. Digoxin level 4. Urinalysis trace leuk esterase, WBCs 3-5/HPF, bacteria many. Imaging: CXR showed no acute pulmonary process but did reveal cardiomegaly without congestion. She was admitted on telemetry floor for decompensated CHF and urinary tract infection with gastritis probably secondary to digoxin toxicity and lactic acidosis. She was initially diuresed with IV Lasix 40 mg daily and lactic acidosis resolved. She was reviewed by soap chipper Dr. Beltran. Serial EKGs and troponins were negative for any acute coronary event and an echocardiogram showed EF of 60% and no wall motion abnormalities. However blood pressure became low on admission and IV Lasix was held. Her Cardizem and metoprolol also discontinued on account of low blood pressure and bradycardia which was observed while on telemetry monitoring. Her digoxin was also stopped and her digoxin level drifted down to 2.3 while on admission. She later developed tachycardia while on admission and she was reviewed by soap chipper, Dr. Cortes. Her metoprolol was restarted and uptitrated up to 25 mg BID. She was treated for urinary tract infection with IV ceftriaxone 1 g daily. Urine cultures revealed Escherichia coli and antibiotics were switched to by mouth Augmentin and she completed her course of treatment. She received Coumadin 2.5mg daily for atrial fibrillation. She had hypoglycemic episodes while on admission and was reviewed by endocrinology. Her adrenal function was adequate but her TSH was elevated. She was started on low dose levothyroxine 25 mcg daily and instructed to to recheck her TSH in 4-6 weeks. She was also seen by consulting engineer and started on Ensure as a nutritional supplement due to her poor oral intake. Her hypoglycemic episodes resolved after this. Per cardio recommendation, patient was subsequently discharged on by mouth Lasix 20 mg daily, and resumed on Metoprolol 25mg twice daily. Patient's cardizem and digoxin were stopped and will follow up with soap chipper outpatient for further evaluation. Allergies: Coded Allergies: clarithromycin (From BIAXIN) (Severe, DIARRHEA 02/23/17) lactose (UNKNOWN 07/24/17) Pertinent Lab Results: SERVICE DATE: 07/24/17 EXAM TYPE: RAD - XRY-PORTABLE CHEST XRAY IMPRESSION: No acute pulmonary process seen. Cardiomegaly without congestion. SERVICE DATE: 07/26/17- EXAM TYPE: CARD - ECHOCARDIOGRAM CONCLUSIONS Normal left ventricular ejection fraction visually estimated at > 60%. Normal size left ventricle. Moderate to severe right atrial dilatation. Moderate to severe left atrial dilatation. Moderate mitral regurgitation. Mild aortic stenosis. Moderate tricuspid regurgitation. Trace pulmonic regurgitation. Pipe Beltran M.D. (Electronically Signed) Final Date: 27 July 2017 09:33 SERVICE DATE: 07/28/17 EXAM TYPE: US - US-UNILATERAL VENOUS DOPPLER IMPRESSION: No evidence of deep vein thrombosis in the right upper extremity to the level of the elbow. SERVICE DATE: 07/31/17 EXAM TYPE: RAD - XRY-PORTABLE CHEST XRAY IMPRESSION: 1. Cardiomegaly. 2. Bibasilar mild subsegmental atelectasis and platelike atelectasis left midlung. 3. No evidence of pulmonary edema or significant pleural effusion. Laboratory Tests 08/01 0728 Chemistry Sodium (137 - 145 mmol/L) 133 L Potassium (3.5 - 5.1 mmol/L) 4.0 Chloride (98 - 107 mmol/L) 96 L Carbon Dioxide (22 - 30 mmol/L) 36 H Anion Gap (5 - 16) 2 L BUN (7 - 17 mg/dL) 19 H Creatinine (0.5 - 1.0 mg/dL) 0.7 Estimated GFR (>60 ml/min) > 60 BUN/Creatinine Ratio (7 - 25 %) 27.1 H Magnesium (1.6 - 2.3 mg/dL) 1.8 Disposition Summary Disposition Principal Diagnosis: 1. Acute exacerbation of chronic heart failure with preserved ejection fraction 2. Digoxin toxicity with nausea and vomitting/gastritis 3. Lactic acidosis 4. Urinary tract infection 5. Paroxysmal atrial fribrillation with intermittent bradycardia and tachycardia 6. Hypoglycemic episodes Additional Diagnosis: 7. Atrial fibrillation on coumadin 8. Anxiety and depression 9. Hypothyroidism Discharge Disposition: SNF Discharge Instructions General Discharge Information Code Status: Do Not Resucitate/Intubat Patient's Diet: Heart healthy diet Patient's Activity: Self-limited activity Follow-Up Instructions/Appts: 1. Please follow-up with your soap chipper within 1 week of discharge 2. Follow-up with your primary care provider within one week of discharge 3. Check your TSH blood test in 4 - 6 weeks around 09/08/17 and send your results to your PCP 4. Patient should have palliative care evaluation at the detention facility. Medications at Discharge Discharge Medications: Stop taking the following medications: Digoxin (Digoxin) 250 MCG TABLET ORAL DAILY Diltiazem HCl (Diltiazem HCl) 30 MG TABLET ORAL TWICE DAILY Continue taking these medications: Lactobacillus Acidophilus (Acidophilus) 1 EACH CAPSULE 2 Capsule ORAL DAILY Comments: Last Taken: 08/01/17 Time: 10 AM Cholestyramine (With Sugar) (Questran Packet) 4 GRAM POWD.PACK 1 Packet ORAL DAILY Comments: Last Taken: 08/01/17 Time: 10 AM Fluoxetine HCl (Prozac) 20 MG CAPSULE 1 Capsule ORAL Every Morning Comments: Last Taken: 08/01/17 Time: 10 AM Potassium Chloride (Potassium Chloride) 20 MEQ TAB.ER.PRT 1 Tablet ORAL DAILY Qty = 30 Comments: Last Taken: 08/01/17 Time: 10 AM Magnesium Oxide (Magnesium) 400 MG CAPSULE 1 Capsule ORAL TWICE DAILY Comments: NOT GIVEN IN HOSPITAL Metoprolol Tartrate (Metoprolol Tartrate) 25 MG TABLET 1 Tablet ORAL TWICE DAILY Qty = 20 Comments: Last Taken: 08/01/17 TIME: 10 AM Warfarin Sodium (Coumadin) 2.5 MG TABLET 1 Tablet ORAL DAILY Comments: Last Taken: 07/31/17 Time: 9 PM Folic Acid (Folic Acid) 1 MG TABLET 1 Tablet ORAL DAILY Comments: Last Taken: 08/01/17 Time: 10 AM Buspirone HCl (Buspirone HCl) 5 MG TABLET 1 Tablet ORAL TWICE DAILY Comments: Last Taken: 08/01/17 Time: 10 AM Ondansetron HCl (Zofran) 4 MG TABLET 1 Tablet ORAL EVERY 8 HOURS NEEDED as needed for NAUSEA/VOMITING Comments: DID NOT RECIEVE Simethicone (Simethicone) 80 MG TAB.CHEW 1 Tablet ORAL EVERY 6 HOURS NEEDED as needed for GAS Comments: DID NOT RECIEVE The following medications have been changed: Old: Furosemide (Furosemide) 40 MG TABLET 1 Tablet ORAL TWICE DAILY Qty = 30 New: Furosemide (Furosemide) 20 MG TABLET 1 Tablet ORAL DAILY Qty = 30 Comments: Last Taken: 08/01/17 Time: 10 AM Copies To: Sebastian MCKEON,Will Anderson; Saul MCKEON,Alcides; Elana MCKEON,Jesus Beltran MD, Pipe Attending MD Review Statement Documenting Attending: Jeannie De León MD Other Findings: Patient is medically stable to be discharged today. She should be evaluated by palliative care services at the detention facility.
--- NOTE | 2017-07-28 07:24 | PN- Housestaff ---
Michelle MCKEON,[facility] 07/28/17723: Subjective Follow-up For: Atrial Fibrillation with Bradycardia Hypoglycemia UTI Tele-Events Since Last Visit: Atrial fibrillation Heart rate 43-66. Subjective: Patient mental status much improved compared to yesterday but complaining of pain and swelling in her right upper extremity. Also reports feeling cold and requesting more blankets. Review of Systems Constitutional: Reports: no symptoms. EENTM: Reports: no symptoms. Cardiovascular: Reports: no symptoms. Respiratory: Reports: short of breath. Gastrointestinal: Reports: no symptoms. Genitourinary: Reports: no symptoms. Musculoskeletal: Reports: muscle pain. Skin: Reports: no symptoms. Neurological/Psychological: Reports: no symptoms. Hematologic/Endocrine: Reports: no symptoms. Immunologic/Allergic: Reports: no symptoms. Objective Last 24 Hrs of Vital Signs/I&O Vital Signs Date Time Temp Pulse Resp B/P B/P Pulse O2 O2 Flow FiO2 Mean Ox Delivery Rate 07/28 08 96 Nasal 2.0L Cannula 07/28 0518 98.2 48 20 104/68 91 07/28 0000 Nasal 2.0L Cannula 07/27 2304 97.5 65 16 118/72 95 Nasal Cannula 07/27 1600 Nasal 2.0L Cannula Intake & Output 07/28 1600 07/28 0800 07/28 0000 Intake Total 100 110 Output Total Balance 100 110 Intake, Oral 100 110 Number 1 Bowel Movements Patient 114 lb Weight Weight Bed scale Measurement Method Physical Exam General Appearance: Alert, Oriented X3, Cooperative, Mild Distress Skin: No Rashes, No Breakdown Cardiovascular: Normal S1, Normal S2, irregular Lungs: mild bibasilar crackles Abdomen: Normal Bowel Sounds, Soft, No Tenderness Extremities: No Clubbing, No Cyanosis, trace lower extremity edema, right upper extremity swelling Current Medications: Current Medications Sig/Eulalia Start time Last Medication Dose Route Stop Time Status Admin Acetaminophen 650 MG Q6P PRN 07/24 1800 AC 07/28 PO 1008 Amoxicillin/ 875 MG BID 07/27 1000 AC 07/28 Clavulanate Potassium PO 923 Buspirone HCl 5 MG BID 07/24 2200 AC 07/28 PO 24 Cholestyramine Resin 1 PAC DAILY 07/25 1000 AC 07/28 PO 923 Dextrose 12.5 GM ONCE ONE 07/28 714 DC 07/28 IV 07/29 715 0712 Fluoxetine HCl 20 MG QAM 07/25 1000 AC 07/28 PO 09 Folic Acid 1 MG DAILY 07/25 1000 AC 07/28 PO 09 Furosemide 40 MG 7:30 AM, & 4:30 PM 07/28 0730 AC 07/28 PO 923 Lactobacillus 2 CAP DAILY 07/25 1000 AC 07/28 Acidophilus PO 923 Magnesium Oxide 400 MG BID 07/24 2199 AC 07/28 PO 923 Melatonin 5 MG AT BEDTIME 07/24 220 AC 07/27 PO 2100 Morphine Sulfate 2 MG Q4P PRN 07/24 1800 AC IV Ondansetron HCl 4 MG Q6P PRN 07/25 0100 AC IV Polyethylene Glycol 17 GM DAILY 07/25 1000 AC 07/28 PO 923 Potassium Chloride 20 MEQ DAILY 07/25 1000 AC 07/28 PO 923 Simethicone 80 MG Q6-PRN PRN 07/24 1745 AC PO Warfarin Sodium 2.5 MG COUMADIN 1700 ONE 07/27 1700 DC 07/27 PO 07/27 1701 1653 Last 24 Hrs of Lab/Merrill Results Last 24 Hrs of Labs/Mics: Laboratory Tests 07/28/17 1200: TSH 9.680 H, Free T4 1.34 07/28/17 0840: PT 18.8 H, INR 1.72 H Assessment/Plan Assessment: MS. Lujan is an 81-year-old lady with past medical history of B-cell lymphoma in remission, atrial fibrillation, bioprosthetic valve, DVT on Coumadin, lupus anticoagulant, thalassemia, iron deficiency anemia, osteoporosis, GERD, admitted 2 times in April for acute on chronic CHF and pneumonia now presents with shortness of breath and lower extremity edema that she noticed last night. Problem List; 1. Atrial Fibrillation with Bradycardia 2. Hypoglycemia 3. UTI - Continue Holding Lasix, metoprolol and Cardizem for borderline hypotension and bradycardia. - Continue supplemental oxygen to keep O2 above 92%. - Cardiology consult; appreciate recommendations. - Digoxin discontinued. - Zofran as needed for nausea and vomiting - Continue Augmentin x 3 days for urinary tract infection. (Day 2) - Patient remains persistently hyperglycemic requiring IV dextrose, await TSH free T4 levels. Endocrinology called, awaiting recommendations. - Right upper extremity Doppler ultrasound negative for any acute DVT. - Continue rest of the home medications. DVT prophylaxis; subcutaneous heparin Patient is DNR/DNI Problem List: 1. UTI (urinary tract infection) 2. Elevated digoxin level 3. Bradycardia Pain Ratin Pain Location: Right upper extremity Pain Goal: Remain pain free Pain Plan: Pain pathway Tomorrow's Labs & Rationales: CELESTE De León MD,Jeannie 07/28/17 1215: Attending MD Review Statement Attending Statement Attending MD Statement: examined this patient, discuss w/resident/PA/GOLF BALL COVER TREATER, agreed w/resident/PA/GOLF BALL COVER TREATER, reviewed EMR data (avail), discussed with nursing, discussed with case mgmt, amended to note Attending Assessment/Plan: Patient seen and examined. Lethargic. Not in any acute distress. Appears less confused today. Nursing staff reports hypoglycemic earlier today. She has very poor oral intake. She remains afebrile hemodynamically stable. She complains of right upper extremity discomfort today. Examination she has right upper extremity swelling. She did have an IV line right forearm the past and may have infiltrated. Heart sounds are regular. Lungs are clear bilaterally. He has some peripheral edema. She has some cyanosis of fingers. Problems: 1. Bradycardia. 2. Moderate mitral regurgitation, moderate tricuspid regurgitation. 3. Pulmonary hypertension 4. Cystitis 5. Hypoglycemia 6. Right upper extremity swelling. Plan: -Patient was scheduled for discharge today however she appears to be having recurrent episodes of hypoglycemia in the morning. -She has very poor oral intake. -Recommend evaluation by the house cleaner. Recommend endocrinology consultation. Repeat TSH level as this was elevated few months ago. -Continue antibiotic course for 3 days for her cystitis. -Obtain Doppler of the right upper extremity to rule out deep vein thrombosis. -Continue to hold on nilda blocking agents. Patient likely has underlying sick sinus syndrome. -Further disposition will depend on clinical course. If she improves she may be discharged to the custodial facility. If her condition continues to decline we may need to readdress goals of care. -Etiology of her Raynaud's phenomena is unknown. Follow-up TSH and free T3/T4 levels to rule out hypothyroidism.
[2017-07-28 10:02] LABS: PT 18.8 SEC (9.4-12.5)
--- NOTE | 2017-07-28 13:18 | ULTRASOUND REPORT ---
EXAMINATION: US TRIPLEX RIGHT UPPER EXTREMITY CLINICAL INFORMATION: Arm pain and swelling. COMPARISON: None TECHNIQUE: Color-flow triplex imaging with spectral analysis and compression Doppler were performed on the lower extremity. FINDINGS: The visualized internal jugular, innominate, subclavian, axillary, brachial, basilic, cephalic veins appear patent without evidence of thrombosis. There is normal compression and vascular flow noted. There is soft tissue edema noted in the lower lateral humeral region. IMPRESSION: No evidence of deep vein thrombosis in the right upper extremity to the level of the elbow.
[2017-07-28] MEDS ORDERED: FUROSEMIDE40 M1 PO (14:46)
--- NOTE | 2017-07-28 14:51 | Patient Discharge Instructions ---
Discharge Instructions General Discharge Information You were seen/treated for: 1. Bradycardia. 2. Moderate mitral regurgitation, moderate tricuspid regurgitation. 3. Pulmonary hypertension 4. Cystitis 5. Hypoglycemia Watch for these problems: Please return to the ER in case of chest pain, shortness of breath, worsening lower extremity edema or lightheadedness/dizziness. Special Instructions: Please follow-up with your PCP within a week after discharge. Please follow-up with your certified shorthand reporter within a week after discharge. Diet Continue normal diet: Yes Recommended Diet: Heart Healthy Activity Full Activity/No Limits: Yes Acute Coronary Syndrome Inclusion Criteria At DC or during hospital stay patient has or had the following: ACS DIAGNOSIS No Discharge Core Measures Meds if any: Prescribed or Continued at Discharge Meds if any: NOT Prescribed or Continued at Discharge Congestive Heart Failure Inclusion Criteria At DC or during hospital stay patient has or had the following: CHF DIAGNOSIS No Discharge Core Measures Meds if any: Prescribed or Continued at Discharge Meds if any: NOT Prescribed or Continued at Discharge Cerebrovascular accident Inclusion Criteria At DC or during hospital stay patient has or had the following: CVA/TIA Diagnosis No Discharge Core Measures Meds if any: Prescribed or Continued at Discharge Meds if any: NOT Prescribed or Continued at Discharge Venous thromboembolism Inclusion Criteria VTE Diagnosis No VTE Type NONE VTE Confirmed by (Test) DUPLEX VENOUS EXTREM UNI Discharge Core Measures - Per Current guidelines, there needs to be overlap - treatment for the first 5 days of Warfarin therapy. - If discharged on Warfarin prior to 5 days of - overlap therapy, the patient will need to be - assessed for post discharge needs including - *Post discharge parental anticoagulation - *Warfarin and/or parental anticoagulation education - *Follow up date to check INR post discharge At least 5 days overlap therapy as Inpatient No Meds if any: Prescribed or Continued at Discharge Note: Overlap Therapy is Warfarin and Anticoagulant Meds if any: NOT Prescribed or Continued at Discharge
--- NOTE | 2017-07-28 15:04 | PN- Cardiology ---
Subjective Subjective: Stable with no major change Objective Vital Signs and I&Os Vital Signs Date Time Temp Pulse Resp B/P B/P Pulse O2 O2 Flow FiO2 Mean Ox Delivery Rate 07/29 799 96 Nasal 2.0L Cannula 07/28 0518 98.2 48 20 104/68 91 07/28 0000 Nasal 2.0L Cannula 07/27 2304 97.5 65 16 118/72 95 Nasal Cannula 07/27 1600 Nasal 2.0L Cannula 07/27 1508 97.8 63 20 116/60 92 Intake & Output 07/28 1600 07/28 0807/28 0000 07/27 1600 07/27 0807/27 0000 Intake Total 100 110 600 360 180 Output Total 100 300 Balance 100 110 500 60 180 Intake, Oral 100 110 600 360 180 Number 1 1 Bowel Movements Output, Urine 100 300 Patient 114 lb 115 lb 115 lb Weight Weight Bed scale Measurement Method Physical Exam: General Appearance: thin, elderly female,Alert, Oriented but mildly confused Skin: Normal Cardiovascular: irregular S1, S2; 1/6 systolic murmur Lungs: bibasilar crackles Abdomen: Normal Bowel Sounds, Soft, No Tenderness, distended Extremities: No Clubbing, No Cyanosis, +1-2 pitting edema Current Medications: Current Medications Sig/Eulalia Start time Last Medication Dose Route Stop Time Status Admin Acetaminophen 650 MG Q6P PRN 07/24 1800 AC 07/28 PO 1008 Amoxicillin/ 875 MG BID 07/27 999 AC 07/28 Clavulanate Potassium PO 923 Buspirone HCl 5 MG BID 07/24 2199 AC 07/28 PO 24 Cholestyramine Resin 1 PAC DAILY 07/25 999 AC 07/28 PO 24 Dextrose 12.5 GM ONCE ONE 07/28 714 DC 07/28 IV 07/29 715 0712 Fluoxetine HCl 20 MG QAM 07/25 999 AC 07/28 PO 0924 Folic Acid 1 MG DAILY 07/25 999 AC 07/28 PO 24 Furosemide 40 MG 7:30 AM, & 4:30 PM 07/28 0730 AC 07/28 PO 24 Lactobacillus 2 CAP DAILY 07/25 999 AC 07/28 Acidophilus PO 0924 Magnesium Oxide 400 MG BID 07/24 2199 AC 07/28 PO 0924 Melatonin 5 MG AT BEDTIME 07/24 2199 AC 07/27 PO 2100 Morphine Sulfate 2 MG Q4P PRN 07/24 1800 AC IV Ondansetron HCl 4 MG Q6P PRN 07/25 0100 AC IV Polyethylene Glycol 17 GM DAILY 07/25 1000 AC 07/28 PO 0924 Potassium Chloride 20 MEQ DAILY 07/25 1000 AC 07/28 PO 0924 Simethicone 80 MG Q6-PRN PRN 07/24 1745 AC PO Warfarin Sodium 2.5 MG COUMADIN 1700 ONE 07/27 1700 DC 07/27 PO 07/27 1701 1653 Results Last 48 Hrs of Labs/Mics: Laboratory Tests 07/28/17 1200: TSH 9.680 H, Free T4 1.34 07/28/17 0840: PT 18.8 H, INR 1.72 H 07/27/17 1220: CBC w Diff NO MAN DIFF REQ, RBC 3.93 L, MCV 96.1, MCH 31.4 H, MCHC 32.7 L, RDW 18.7 H, MPV 9.5, Gran % 73.7, Lymphocytes % 16.0 L, Monocytes % 9.6 H, Eosinophils % 0.3, Basophils % 0.4, Absolute Granulocytes 6.1, Absolute Lymphocytes 1.3, Absolute Monocytes 0.8 H, Absolute Eosinophils 0, Absolute Basophils 0 07/27/17 0757: Anion Gap 5, Estimated GFR > 60, BUN/Creatinine Ratio 35.0 H, PT 18.6 H, INR 1.70 H Assessment/Plan Assessment/Plan Assessment: 1. Worsening shortness of breath; possibly related to acute on chronic HFpEF 2. Paroxysmal atrial fibrillation with intermittent bradycardia 3. History of B-cell lymphoma 4. Bioprosthetic aortic valve 5. History of DVT on warfarin 6. History of lupus anticoagulant Plan: * Continue by mouth Lasix with continued monitoring of labs, intakes, outputs, and daily weights * Digoxin discontinued. * Metoprolol and diltiazem on hold for bradycardia; consider reinstitution when heart rate improved * Dose warfarin for INR 2-3 Continue telemetry? Yes
--- NOTE | 2017-07-28 17:23 | Cons- Endocrinology ---
General Information and HPI Consulting Request Date of Consult: 07/28/17 Requested By: medical team Reason for Consult: evlauation of hypoglycemia Source of Information: old records Exam Limitations: unable to give history, poor historian History of Present Illness: MS. Lujan is an 81-year-old lady with past medical history of B-cell lymphoma in remission, atrial fibrillation, bioprosthetic valve, DVT on Coumadin, lupus anticoagulant, thalassemia, iron deficiency anemia, osteoporosis, GERD, chronic CHF and pneumonia was admitted for shortness of breath and lower extremity edema. However, patient was found to have low finger stick glucose levels in the morning with glucose level of 50-60. Her po intake has been poor. On 07/26/2017, her serum glucose level was 63. Am cortisol and insulin level were added on--- am cortisol 24.8 and insulin 1.2. In addition, blood work showed TSH 9.68, free T4 1.34; her anti TPO was < 28 and anti Tg was < 15. Allergies/Medications Allergies: Coded Allergies: clarithromycin (From BIAXIN) (Severe, DIARRHEA 02/23/17) lactose (UNKNOWN 07/24/17) Home Med List: Buspirone HCl 5 MG TABLET 1 TAB PO BID MENTAL HEALTH (Reported) Cholestyramine (With Sugar) (Questran Packet) 4 GRAM POWD.PACK 1 PAC PO DAILY GI (Reported) Digoxin 250 MCG TABLET 1 TAB PO DAILY HEART (Reported) Diltiazem HCl 30 MG TABLET 1 TAB PO BID HEART (Reported) Fluoxetine HCl (Prozac) 20 MG CAPSULE 1 CAP PO QAM MENTAL HEALTH (Reported) Folic Acid 1 MG TABLET 1 TAB PO DAILY SUPPLEMENT (Reported) Furosemide 40 MG TABLET 1 TAB PO BID heart failure take one pill daily Lactobacillus Acidophilus (Acidophilus) 1 EACH CAPSULE 2 CAP PO DAILY PROBIOTIC (Reported) Magnesium Oxide (Magnesium) 400 MG CAPSULE 1 CAP PO BID SUPPLEMENT (Reported) Metoprolol Tartrate 25 MG TABLET 1 TAB PO BID HEART/BLOOD (Reported) Ondansetron HCl (Zofran) 4 MG TABLET 1 TAB PO Q8P PRN NAUSEA/VOMITING ( Reported) Potassium Chloride 20 MEQ TAB.ER.PRT 1 TAB PO DAILY SUPPLEMENT (Reported) Simethicone 80 MG TAB.CHEW 1 TAB PO Q6-PRN PRN GAS (Reported) Warfarin Sodium (Coumadin) 2.5 MG TABLET 1 TAB PO DAILY BLOOD THINNER ( Reported) Review of Systems Review of Systems Constitutional: Reports: see HPI (poor historian). 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 MOTHER, ; Cause: Pancreatic cancer. Psychosocial History Where Do You Live? Assisted Living Smoking Status: Former Smoker ETOH Use: denies use Illicit Drug Use: denies illicit drug use Exam & Diagnostic Data Last 24 Hrs of Vital Signs/I&O Vital Signs Date Time Temp Pulse Resp B/P B/P Pulse O2 O2 Flow FiO2 Mean Ox Delivery Rate 07/29 799 96 Nasal 2.0L Cannula 07/28 617 98.2 48 20 104/68 91 07/28 0000 Nasal 2.0L Cannula 07/27 2304 97.5 65 16 118/72 95 Nasal Cannula Intake & Output 07/28 1600 07/28 0800 07/28 0000 Intake Total 480 100 110 Output Total 150 Balance 330 100 110 Intake, Oral 480 100 110 Number 1 1 Bowel Movements Output, Urine 150 Patient 114 lb Weight Weight Bed scale Measurement Method Physical Exam General Appearance: no apparent distress Neck: normal inspection Respiratory: decreased breath sounds Cardiovascular: irregularly irregular Extremities: poor circulation on her fingers Labs/Merrill Results: Laboratory Tests 07/28 07/28 07/27 1200 0840 1220 Chemistry Glucose (65 - 99 mg/dL) Pending TSH (0.270 - 4.200 uIU/mL) 9.680 H Free T4 (0.85 - 1.93 ng/dL) 1.34 Coagulation PT (9.4 - 12.5 SEC) 18.8 H INR (0.90 - 1.19) 1.72 H Hematology CBC w Diff NO MAN DIFF REQ WBC (4.8 - 10.8 /CUMM) 8.3 RBC (4.20 - 5.40 /CUMM) 3.93 L Hgb (12.0 - 16.0 G/DL) 12.3 Hct (37 - 47 %) 37.8 MCV (81.0 - 99.0 FL) 96.1 MCH (27.0 - 31.0 PG) 31.4 H MCHC (33.0 - 37.0 G/DL) 32.7 L RDW (11.5 - 14.5 %) 18.7 H Plt Count (130 - 400 /CUMM) 137 MPV (7.4 - 10.4 FL) 9.5 Gran % (42.2 - 75.2 %) 73.7 Lymphocytes % (20.5 - 51.1 %) 16.0 L Monocytes % (1.7 - 9.3 %) 9.6 H Eosinophils % (0 - 5 %) 0.3 Basophils % (0.0 - 2.0 %) 0.4 Absolute Granulocytes (1.4 - 6.5 /CUMM) 6.1 Absolute Lymphocytes (1.2 - 3.4 /CUMM) 1.3 Absolute Monocytes (0.10 - 0.60 /CUMM) 0.8 H Absolute Eosinophils (0.0 - 0.7 /CUMM) 0 Absolute Basophils (0.0 - 0.2 /CUMM) 0 Immunology Thyroglobulin Antibody (< 61 U/mL) < 15 Thyroid Peroxidase Ab (< 61 U/mL) < 28 /08 03/07 03/07 03/ 0757 0855 0635 0635 Chemistry Sodium (137 - 145 mmol/L) 136 L 136 L Potassium (3.5 - 5.1 mmol/L) 4.3 3.9 Chloride (98 - 107 mmol/L) 93 L 93 L Carbon Dioxide (22 - 30 mmol/L) 38 H 39 H Anion Gap (5 - 16) 5 4 L BUN (7 - 17 mg/dL) 28 H 30 H Creatinine (0.5 - 1.0 mg/dL) 0.8 0.8 Estimated GFR (>60 ml/min) > 60 > 60 BUN/Creatinine Ratio (7 - 25 %) 35.0 H 37.5 H Glucose (65 - 99 mg/dL) Cancelled 63 L Insulin Level (3.0 - 25.0 mIU/mL) 1.2 L Troponin I (< 0.11 ng/ml) Cancelled 0.06 Cortisol AM Sample (4.46 - 22.7 ug/dL) 24.8 H Coagulation PT (9.4 - 12.5 SEC) 18.6 H 22.9 H INR (0.90 - 1.19) 1.70 H 2.09 H Toxicology Digoxin (0.8 - 2.0 ng/mL) 2.3 H 06 07/25 07/25 1940 1748 1748 Chemistry Sodium (137 - 145 mmol/L) 132 L Potassium (3.5 - 5.1 mmol/L) 3.7 Chloride (98 - 107 mmol/L) 90 L Carbon Dioxide (22 - 30 mmol/L) 37 H Anion Gap (5 - 16) 4 L BUN (7 - 17 mg/dL) 31 H Creatinine (0.5 - 1.0 mg/dL) 0.8 Estimated GFR (>60 ml/min) > 60 BUN/Creatinine Ratio (7 - 25 %) 38.8 H Glucose (65 - 99 mg/dL) 149 H Troponin I (< 0.11 ng/ml) 0.07 Cancelled Cortisol PM Sample (1.7 - 14.1) 15.3 H Assessment/Plan Assessment/Plan MS. Lujan is an 81-year-old lady with complicated past medical history of B-cell lymphoma in remission, atrial fibrillation, bioprosthetic valve, DVT on Coumadin , lupus anticoagulant, thalassemia, iron deficiency anemia, osteoporosis, GERD, chronic CHF and pneumonia was admitted for shortness of breath and lower extremity edema. Patient was found to have low finger stick glucose levels in the morning with glucose level of 50-60. Her po intake has been poor. However, her circulation on her fingers are poor. On exam, she has purple finger tips. Patient's am cortisol level was elevated and insulin level was suppressed when her glucose level was 63 on 07/26/2017. 1. Hypoglycemia: ---check both serum glucose and FSG at the same time tomorrow morning; 2. Hypothyroidism: ---repeat TSH, free T4 and TT3; ---will consider putting patient on low dose of Levothyroxine if her repeat TSH remains elevated. will follow Consult Acknowledgment - Thank you for your consult request.
[2017-07-28 22:32] VITALS: BP 108/70
[2017-07-29 07:25] VITALS: BP 110/64
--- NOTE | 2017-07-29 08:15 | PN- Housestaff ---
Kenneth MCKEON,[facility] 07/29/17 0815: Subjective Follow-up For: 1. Acute on Chronic Diastolic CHF 2. UTI 3. Lactic Acidosis - Resolved 4. Nausea/Vomiting - Resolved 5. Elevated Digoxin Levels Complaints: Generalized weakness Tele-Events Since Last Visit: A-fib, HR 64-66 bpm. 3 beat V tach run at 6 am Subjective: Patient alert and oriented X 3 this morning. She complains generalized weakness. She denies shortness of breath, chest discomfort or palpitations. Review of Systems Constitutional: Reports: weakness. Denies: chills, fever, malaise. Cardiovascular: Denies: chest pain, orthopena, palpitations. Respiratory: Denies: cough, short of breath. Gastrointestinal: Denies: abdominal pain, diarrhea, nausea. Genitourinary: Denies: dysuria. Objective Last 24 Hrs of Vital Signs/I&O Vital Signs Date Time Temp Pulse Resp B/P B/P Pulse O2 O2 Flow FiO2 Mean Ox Delivery Rate 07/30 799 96 Nasal 2.0L Cannula 07/29 0725 97.8 71 20 110/64 97 Nasal 2.5L Cannula 07/29 0000 95 Nasal 2.0L Cannula 07/28 2232 97.7 69 20 108/70 100 07/28 1600 98 Nasal 2.0L Cannula Intake & Output 07/29 1600 07/29 0800 07/29 0000 Intake Total 110 75 Output Total 200 Balance 110 -125 Intake, IV 10 Intake, Oral 100 75 Number 1 Bowel Movements Output, Urine 200 Patient 118 lb Weight Physical Exam General Appearance: Alert, Oriented X3, Cooperative, No Acute Distress Skin: No Rashes Skin Temp/Moisture Exam: Warm/Dry Sepsis Skin Exam (color): Normal for Ethnicity HEENT: Atraumatic, PERRLA, EOMI, Mucous Membr. moist/pink Neck: Supple, No JVD Lymphatic: Cervical nl Cardiovascular: Regular Rate, Normal S1, Normal S2, No Murmurs Lungs: Normal Air Movement, bibasilar coarse crepitations Abdomen: Normal Bowel Sounds, Soft, No Tenderness, No Hepatospenomegaly Neurological: Normal Speech Extremities: No Clubbing, No Edema Current Medications: Current Medications Sig/Eulalia Start time Last Medication Dose Route Stop Time Status Admin Acetaminophen 650 MG .STK-MED ONE 07/28 1007 DC PO 07/28 1008 Acetaminophen 650 MG Q6P PRN 07/24 1800 AC 07/28 PO 1008 Amoxicillin/ 875 MG BID 07/27 1000 AC 07/28 Clavulanate Potassium PO 2114 Buspirone HCl 5 MG BID 07/24 2199 AC 07/28 PO 2114 Cholestyramine Resin 1 PAC DAILY 07/25 1000 AC 07/28 PO 923 Fluoxetine HCl 20 MG QAM 07/25 1000 AC 07/28 PO 923 Folic Acid 1 MG DAILY 07/25 1000 AC 07/28 PO 923 Furosemide 40 MG 7:30 AM, & 4:30 PM 07/28 0730 AC 07/28 PO 1712 Lactobacillus 2 CAP DAILY 07/25 1000 AC 07/28 Acidophilus PO 923 Magnesium Oxide 400 MG BID 07/24 2199 AC 07/28 PO 2114 Melatonin 5 MG AT BEDTIME 07/24 2199 AC 07/28 PO 2114 Morphine Sulfate 2 MG Q4P PRN 07/24 1800 AC IV Ondansetron HCl 4 MG Q6P PRN 07/25 0100 AC IV Polyethylene Glycol 17 GM DAILY 07/25 1000 AC 07/28 PO 923 Potassium Chloride 20 MEQ DAILY 07/25 1000 AC 07/28 PO 923 Simethicone 80 MG Q6-PRN PRN 07/24 1745 AC PO Warfarin Sodium 3.5 MG COUMADIN 1700 ONE 07/28 1700 DC 07/28 PO 07/28 1701 1720 Last 24 Hrs of Lab/Merrill Results Last 24 Hrs of Labs/Mics: Laboratory Tests 07/29/17 0800: Anion Gap 1 L, Estimated GFR > 60, BUN/Creatinine Ratio 31.4 H, Glucose 56 L, TSH Pending, Free T4 1.29, Total T3 Pending, TSH &T3 &Free T4 Intrp Pending, PT 23.1 H, INR 2.10 H 07/28/17 1905: Free T4 Cancelled, Total T3 Cancelled 07/28/17 1200: Glucose 115 H, TSH 9.680 H, Free T4 1.34, Total T3 0.64 L, Thyroglobulin Antibody < 15, Thyroid Peroxidase Ab < 28 Assessment/Plan Assessment: MS. Lujan is an 81-year-old lady with past medical history of B-cell lymphoma in remission, atrial fibrillation, bioprosthetic valve, DVT on Coumadin, lupus anticoagulant, thalassemia, iron deficiency anemia, osteoporosis, GERD, admitted 2 times in April for acute on chronic CHF and pneumonia now presents with shortness of breath and lower extremity edema. She is being managed for CHF exacerbation and UTI. Problem List; 1. Acute on Chronic Diastolic CHF 2. UTI 3. Atrial fibrillation on coumadin 4. Bradycardia 5. Hypoglycemic episodes Plan * Lasix currently held on account of hypotension * Continue Holding Lasix, metoprolol and Cardizem for borderline hypotension and bradycardia. Blood pressure 110/64 mmhg this am. * Continue supplemental oxygen to keep O2 above 92% * Follow up Cardiology recommendations * Urine culture growing E-coli; Continue PO augmentin for 3 days and discontinue tomorrow AM * Continue Holdingmetoprolol and Cardizem for borderline hypotension and bradycardia * Digoxin level was elevated at 4 on admission and has been discontinued * Dose coumadin 3.5 mg today and check INR in AM to keep INR between 2-3 * Follow up endocrinology recommendations for hypoglycemic episodes * AM FPG was 71 mg/dl and venous plasma glucose was 56 mg/dl although sampleas were not taken at the same time * Repeat TSH still elevated at 8.42, will start low dose levothyroxine 0.025 mg daily * Follow nutrition consult recommendations * DVT prophylaxis with coumadin * Patient is DNR/DNI Problem List: 1. CHF exacerbation 2. Generalized weakness 3. Atrial fibrillation 4. Bradycardia 5. UTI (urinary tract infection) Pain Ratin Pain Location: Feet Pain Goal: Pain 4 or less Pain Plan: Tylenol prn Tomorrow's Labs & Rationales: INR, BEP DVT/Prophylaxis: pharmacological Consulting Request: Consulting Specialty: Cardiology Consulting Physician: Dr. Beltran Reason for Consult: heart failure with preserved ejection fraction Lisa Anderson 07/29/17 1401: Attending MD Review Statement Attending Statement Attending MD Statement: examined this patient, discuss w/resident/PA/POST OFFICE MARKUP CLERK, agreed w/resident/PA/POST OFFICE MARKUP CLERK, reviewed EMR data (avail), discussed with nursing Attending Assessment/Plan: Contraction alkalosis- will decrease lasix to 40mg qd. Hypoglycemia- d/w endocrine. Hypothyroidism- start on 25mcg levothyroxine. INR therapeutic- will give 2.5mg coumadin tonight. d/w pt the care plan.
[2017-07-29 08:50] LABS: PT 23.1 SEC (9.4-12.5)
--- NOTE | 2017-07-29 11:03 | PN- Endocrinology ---
Assessment/Plan Endoscopy Assessment: MS. Lujan is an 81-year-old lady with complicated past medical history of B-cell lymphoma in remission, atrial fibrillation, bioprosthetic valve, DVT on Coumadin , lupus anticoagulant, thalassemia, iron deficiency anemia, osteoporosis, GERD, chronic CHF and pneumonia was admitted for shortness of breath and lower extremity edema. Patient was found to have low finger stick glucose levels in the morning with glucose level of 50-60. Her po intake has been poor. However, her circulation on her fingers were poor. On exam, she had purple finger tips. When her glucose level was 63 on 07/26/2017, patient's am cortisol level was 24.8 which is elevated and insulin level was 1.2 which is suppressed. However this morning, her am FSG was 71 and am serum glucose was 56. She was asymptomatic. In addition, her TFT was off. Repeat TFT this morning showed TSH 8.42, free T4 1.29 and TT3 0.66. Plan: 1. start Levothyroxine 25 mcg daily; 2. encourage po intake; 3. continue monitoring her glucose levels. will follow. Subjective Subjective: She feels better this morning. Objective Last 24 Hrs of Vital Signs/I&O Vital Signs Date Time Temp Pulse Resp B/P B/P Pulse O2 O2 Flow FiO2 Mean Ox Delivery Rate 07/30 799 96 Nasal 2.0L Cannula 07/29 0725 97.8 71 20 110/64 97 Nasal 2.5L Cannula 07/29 0000 95 Nasal 2.0L Cannula 07/28 2232 97.7 69 20 108/70 100 07/28 1600 98 Nasal 2.0L Cannula Intake & Output 07/29 0000 Intake Total 110 75 Output Total 200 Balance 110 -125 Intake, IV 10 Intake, Oral 100 75 Number 1 Bowel Movements Output, Urine 200 Patient 118 lb Weight Results Pertinent Lab/Merrill Results: Laboratory Tests 07/29 1905 1200 Chemistry Sodium (137 - 145 mmol/L) 135 L Potassium (3.5 - 5.1 mmol/L) 4.2 Chloride (98 - 107 mmol/L) 92 L Carbon Dioxide (22 - 30 mmol/L) 42 H Anion Gap (5 - 16) 1 L BUN (7 - 17 mg/dL) 22 H Creatinine (0.5 - 1.0 mg/dL) 0.7 Estimated GFR (>60 ml/min) > 60 BUN/Creatinine Ratio (7 - 25 %) 31.4 H Glucose (65 - 99 mg/dL) 56 L 115 H Magnesium (1.6 - 2.3 mg/dL) 1.8 TSH (0.270 - 4.200 uIU/mL) 8.420 H 9.680 H Free T4 (0.85 - 1.93 ng/dL) 1.29 Cancelled 1.34 Total T3 (0.97 - 1.69 ng/mL) 0.66 L Cancelled 0.64 L TSH &T3 &Free T4 Intrp (0.270 - 4.20 uIU/mL) 8.420 H Coagulation PT (9.4 - 12.5 SEC) 23.1 H INR (0.90 - 1.19) 2.10 H Immunology Thyroglobulin Antibody (< 61 U/mL) < 15 Thyroid Peroxidase Ab (< 61 U/mL) < 28
[2017-07-29 13:49] VITALS: BP 95/52
--- NOTE | 2017-07-29 16:09 | PN- Cardiology ---
Subjective Subjective: * Patient feels weak. She has some shortness of breath but it is getting better. * atrial fibrillation with mildly increased heart rate. * INR 2.1 Objective Vital Signs and I&Os Vital Signs Date Time Temp Pulse Resp B/P B/P Pulse O2 O2 Flow FiO2 Mean Ox Delivery Rate 07/29 1349 98.1 118 18 95/52 96 Nasal 2.0L Cannula 07/29 0800 96 Nasal 2.0L Cannula 07/29 0725 97.8 71 20 110/64 97 Nasal 2.5L Cannula 07/29 0000 95 Nasal 2.0L Cannula 07/28 2232 97.7 69 20 108/70 100 Intake & Output 07/29 1600 07/29 0800 07/29 0000 07/28 1600 07/28 0800 07/28 0000 Intake Total 480 110 75 480 100 110 Output Total 200 150 Balance 480 110 -125 330 100 110 Intake, IV 10 Intake, Oral 480 100 75 480 100 110 Number 2 1 1 1 Bowel Movements Output, Urine 200 150 Patient 118 lb 114 lb Weight Weight Bed scale Measurement Method Physical Exam: General: WD/thin female in NAD; alert and oriented x 3 Heart: irregularly irregular Lungs: clear bilaterally Extremities: no edema Assessment/Plan Assessment/Plan * This patient continues to have some shortness of breath without signs of decompensated heart failure. Due to impaired LV relaxation she is better off not being on digoxin which can worsen this condition, especially since she has a normal EF. Would begin Metoprolol at 12.5mg BID for better rate control. No wheezing is noted today. Continue telemetry? Yes
[2017-07-29 22:33] VITALS: BP 94/58
[2017-07-30 07:25] VITALS: BP 88/68
[2017-07-30 08:26] LABS: PT 25.3 SEC (9.4-12.5)
--- NOTE | 2017-07-30 08:27 | PN- Housestaff ---
Michelle MCKEON,[facility] 07/30/17826: Subjective Follow-up For: ?? Heart failure Atrial Fibrillation with Bradycardia Hypoglycemia UTI Tele-Events Since Last Visit: Atrial fibrillation Heart rate 56-75. Subjective: Patient sitting comfortably in chair, complains of pain in her lower extremities which is chronic and she does not take any pain medications at home. Breathing is improved and she is off the supplemental oxygen. Review of Systems Constitutional: Reports: no symptoms. EENTM: Reports: no symptoms. Cardiovascular: Reports: orthopena. Respiratory: Reports: no symptoms. Gastrointestinal: Reports: no symptoms. Genitourinary: Reports: no symptoms. Musculoskeletal: Reports: muscle pain. Skin: Reports: no symptoms. Neurological/Psychological: Reports: no symptoms. Hematologic/Endocrine: Reports: no symptoms. Immunologic/Allergic: Reports: no symptoms. Objective Last 24 Hrs of Vital Signs/I&O Vital Signs Date Time Temp Pulse Resp B/P B/P Pulse O2 O2 Flow FiO2 Mean Ox Delivery Rate 07/30 0935 90/48 07/30 0800 94 Nasal 2.0L Cannula 07/30 0725 98.0 77 18 88/68 100 07/30 0000 96 Nasal 2.0L Cannula 07/29 2303 68 98/64 07/29 2233 98.0 80 18 94/58 99 Nasal 2.0L Cannula 07/29 1600 Nasal 2.0L Cannula Intake & Output 07/30 1600 07/30 0800 07/30 0000 Intake Total 200 240 Output Total Balance 200 240 Intake, Oral 200 240 Number 1 Bowel Movements Patient 114 lb Weight Weight Bed scale Measurement Method Physical Exam General Appearance: Alert, Oriented X3, Cooperative Skin: No Rashes, No Breakdown Cardiovascular: Normal S1, Normal S2, IRREGULAR Lungs: RHONCHI/CRACKLES ON BILATERAL LUNG BASES Abdomen: Normal Bowel Sounds, Soft, No Tenderness Extremities: No Clubbing, No Cyanosis, No Edema Current Medications: Current Medications Sig/Eulalia Start time Last Medication Dose Route Stop Time Status Admin Acetaminophen 650 MG Q6P PRN 07/24 1800 AC 07/28 PO 1008 Amoxicillin/ 875 MG BID 07/27 1000 AC 07/30 Clavulanate Potassium PO 09 Buspirone HCl 5 MG BID 07/24 2200 AC 07/30 PO 0902 Cholestyramine Resin 1 PAC DAILY 07/25 1000 AC 07/30 PO 0902 Fluoxetine HCl 20 MG QAM 07/25 1000 AC 07/30 PO 0902 Folic Acid 1 MG DAILY 07/25 1000 AC 07/30 PO 0902 Furosemide 40 MG DAILY 07/30 1000 DC 07/30 PO 0902 Lactobacillus 2 CAP DAILY 07/25 1000 AC 07/30 Acidophilus PO 09 Levothyroxine Sodium 0.025 MG DAILY AC 07/29 1015 AC 07/30 PO 0709 Magnesium Chloride 64 MG BID 07/29 2200 AC 07/30 PO 09 Melatonin 5 MG AT BEDTIME 07/24 2200 AC 07/29 PO 2304 Metoprolol Tartrate 12.5 MG BID 07/29 2200 AC 07/29 PO 2303 Morphine Sulfate 2 MG Q4P PRN 07/24 1800 AC IV Ondansetron HCl 4 MG Q6P PRN 07/25 0100 AC IV Polyethylene Glycol 17 GM DAILY 07/25 1000 AC 07/28 PO 0924 Potassium Chloride 20 MEQ DAILY 07/25 1000 AC 07/30 PO 0902 Simethicone 80 MG Q6-PRN PRN 07/24 1745 AC PO Warfarin Sodium 2.5 MG COUMADIN 1700 ONE 07/30 1700 AC PO 07/30 1701 Warfarin Sodium 2.5 MG COUMADIN 1700 ONE 07/29 1700 DC 07/29 PO 07/29 1701 1732 Last 24 Hrs of Lab/Merrill Results Last 24 Hrs of Labs/Mics: Laboratory Tests 07/30/17 0652: Anion Gap 1 L, Estimated GFR > 60, BUN/Creatinine Ratio 31.7 H, PT 25.3 H, INR 2.30 H Assessment/Plan Assessment: MS. Lujan is an 81-year-old lady with past medical history of B-cell lymphoma in remission, atrial fibrillation, bioprosthetic valve, DVT on Coumadin, lupus anticoagulant, thalassemia, iron deficiency anemia, osteoporosis, GERD, admitted 2 times in April for acute on chronic CHF and pneumonia now presents with shortness of breath and lower extremity edema. She is being managed for CHF exacerbation and UTI. Problem List; 1. ?? Heart failure 2. Atrial Fibrillation with Bradycardia 3. Hypoglycemia 4. UTI Plan * On Lasix 40 mg daily, will discuss with cardiology regarding continuing Lasix as the patient remains hypotensive and also recent echocardiogram does not suggest any heart failure. * Metoprolol 12.5 mg twice a day was resumed yesterday, will continue withholding para meters(hold for systolic blood pressure less than 100) as the patient remains hypotensive. Continue holding Cardizem(bradycardia and hypotension. * Appreciate Cardiology recommendations. * Sodium level of 1:30 this a.m., will avoid fluid restriction given hypotension. We'll continue to monitor. * Day 3 of Augmentin for UTI, will discontinue. * INR of 2.70, will give 1 dose of Coumadin 2.5 mg and repeat INR in a.m. * Blood sugar remained stable, no hypoglycemic events noted. * Appreciate endocrinology recommendations. * Continue levothyroxine 25 MCG daily. * Follow nutrition consult recommendations DVT prophylaxis with coumadin Patient is DNR/DNI Problem List: 1. UTI (urinary tract infection) 2. Bradycardia Pain Ratin Pain Location: None Pain Goal: Remain pain free Pain Plan: Pain pathway Tomorrow's Labs & Rationales: BEP(hyponatremia), INR(on Coumadin) Consulting Request: Consulting Specialty: Cardiology Consulting Physician: Dr. Beltran Reason for Consult: heart failure with preserved ejection fraction Lisa Anderson 07/30/17 1439: Attending MD Review Statement Attending Statement Attending MD Statement: examined this patient, discuss w/resident/PA/AUTO SERVICE REPRESENTATIVE, agreed w/resident/PA/AUTO SERVICE REPRESENTATIVE, reviewed EMR data (avail), discussed with nursing Attending Assessment/Plan: pt had low bp this am of 90/48, held metoprolol this am. will ask cariology about stopping lasix. Sodium level 130 on fluid restriction. cont to monitor closely. Blood sugars ok. endo consult appreciated. INR 2.3 , will give coumadin 2.5mg tonight.
--- NOTE | 2017-07-30 08:59 | PN- Endocrinology ---
Assessment/Plan Endoscopy Assessment: MS. Lujan is an 81-year-old lady with complicated past medical history of B-cell lymphoma in remission, atrial fibrillation, bioprosthetic valve, DVT on Coumadin , lupus anticoagulant, thalassemia, iron deficiency anemia, osteoporosis, GERD, chronic CHF and pneumonia was admitted for shortness of breath and lower extremity edema. Patient was found to have low finger stick glucose levels in the morning with glucose level of 50-60. Her po intake has been poor. However, her circulation on her fingers were poor. On exam, she had purple finger tips. When her glucose level was 63 on 07/26/2017, patient's am cortisol level was 24.8 which is elevated and insulin level was 1.2 which is suppressed. However this morning, her am FSG was 71 and am serum glucose was 56. She was asymptomatic. In addition, her TFT was off. Repeat TFT showed TSH 8.42, free T4 1.29 and TT3 0.66. She was started on Levothyroxine 25 mcg daily on 07/29/2017. She feels better and po intake has been slightly better. Her FSGs were 71, 101, 131, 113 and 83. Plan: continue Levothyroxine 25 mcg daily for now; repeat TFT in 4-6 weeks; continue monitoring her FSGs; sodium level was down to 130 this am; recommend free water restriction and continue monitoring her sodium level. will follow. Subjective Subjective: She feels better this morning. Objective Last 24 Hrs of Vital Signs/I&O Vital Signs Date Time Temp Pulse Resp B/P B/P Pulse O2 O2 Flow FiO2 Mean Ox Delivery Rate 07/30 08 94 Nasal 2.0L Cannula 07/30 0725 98.0 77 18 88/68 100 07/29 2303 68 98/64 07/29 2233 98.0 80 18 94/58 99 Nasal 2.0L Cannula 07/29 1600 Nasal 2.0L Cannula 07/29 1349 98.1 118 18 95/52 96 Nasal 2.0L Cannula Intake & Output 07/30 1600 07/30 0800 07/30 0000 Intake Total 200 240 Output Total Balance 200 240 Intake, Oral 200 240 Number 1 Bowel Movements Patient 114 lb Weight Weight Bed scale Measurement Method Results Pertinent Lab/Merrill Results: Laboratory Tests 07/30 0652 Chemistry Sodium (137 - 145 mmol/L) 130 L Potassium (3.5 - 5.1 mmol/L) 4.0 Chloride (98 - 107 mmol/L) 93 L Carbon Dioxide (22 - 30 mmol/L) 36 H Anion Gap (5 - 16) 1 L BUN (7 - 17 mg/dL) 19 H Creatinine (0.5 - 1.0 mg/dL) 0.6 Estimated GFR (>60 ml/min) > 60 BUN/Creatinine Ratio (7 - 25 %) 31.7 H Coagulation PT (9.4 - 12.5 SEC) 25.3 H INR (0.90 - 1.19) 2.30 H
--- NOTE | 2017-07-30 14:24 | PN- Cardiology ---
Subjective Subjective: * Patient feels weak. She has some shortness of breath but it is getting better. * atrial fibrillation with mildly increased heart rate. * INR 2.3 Objective Vital Signs and I&Os Vital Signs Date Time Temp Pulse Resp B/P B/P Pulse O2 O2 Flow FiO2 Mean Ox Delivery Rate 07/30 0935 90/48 07/30 0800 94 Nasal 2.0L Cannula 07/30 0725 98.0 77 18 88/68 100 07/30 0000 96 Nasal 2.0L Cannula 07/29 2303 68 98/64 07/29 2233 98.0 80 18 94/58 99 Nasal 2.0L Cannula 07/29 1600 Nasal 2.0L Cannula Intake & Output 07/30 1600 07/30 0800 07/30 0000 07/29 1600 07/29 0807/29 0000 Intake Total 200 240 480 110 75 Output Total 200 Balance 200 240 480 110 -125 Intake, IV 10 Intake, Oral 200 240 480 100 75 Number 1 2 1 Bowel Movements Output, Urine 200 Patient 114 lb 113 lb 118 lb Weight Weight Bed scale Bed scale Measurement Method Physical Exam: General: WD/thin female in NAD; alert and oriented x 3 Heart: irregularly irregular Lungs: clear bilaterally Extremities: no edema Assessment/Plan Assessment/Plan * This patient is breathing better and is lying flat comfortably without signs of decompensated heart failure. Due to impaired LV relaxation she is better off not being on digoxin which can worsen this condition, especially since she has a normal EF. Continue Metoprolol at 12.5mg BID for better rate control. No wheezing is noted today. Continue telemetry? Yes
[2017-07-30 14:59] VITALS: BP 92/60
[2017-07-30 16:00] VITALS: BP 98/64
[2017-07-30 22:52] VITALS: BP 94/66
[2017-07-31 07:04] VITALS: BP 110/70
--- NOTE | 2017-07-31 08:14 | PN- Endocrinology ---
Assessment/Plan Endoscopy Assessment: MS. Lujan is an 81-year-old lady with complicated past medical history of B-cell lymphoma in remission, atrial fibrillation, bioprosthetic valve, DVT on Coumadin , lupus anticoagulant, thalassemia, iron deficiency anemia, osteoporosis, GERD, chronic CHF and pneumonia was admitted for shortness of breath and lower extremity edema. Patient was found to have low finger stick glucose levels in the morning with glucose level of 50-60. Her po intake was poor. When her glucose level was 63 on 07/26/2017, patient's am cortisol level was 24.8 which is elevated and insulin level was 1.2 which is suppressed. However this morning, her am FSG was 71 and am serum glucose was 56. She was asymptomatic. In addition, her TFT was off. Repeat TFT showed TSH 8.42, free T4 1.29 and TT3 0.66. She was started on Levothyroxine 25 mcg daily on 07/29/2017. She feels better and po intake has been slightly better. Her FSGs were 113, 83, 79, 99, 91 and 75. Patient's sodium was 130 on 07/30/2017. She is now on free water restriction. Repeat am lab from this morning is still pending. Plan: continue Levothyroxine 25 mcg daily for now; repeat TFT in 4-6 weeks; continue monitoring her FSGs; continue monitoring her electrolytes. will follow. Subjective Subjective: She complains of sore LE bilaterally. Objective Last 24 Hrs of Vital Signs/I&O Vital Signs Date Time Temp Pulse Resp B/P B/P Pulse O2 O2 Flow FiO2 Mean Ox Delivery Rate 07/31 0704 97.8 66 20 110/70 98 Room Air 07/30 2252 98.6 68 18 94/66 92 Room Air 07/30 2135 68 94/66 07/30 1600 96 Room Air 07/30 1600 97.8 70 18 98/64 96 Room Air 07/30 1459 97.5 70 18 92/60 96 Room Air 07/30 0935 90/48 Intake & Output 07/31 1600 07/31 0800 03/12 0000 Intake Total 200 480 Output Total Balance 200 480 Intake, Oral 200 480 Number 1 2 Bowel Movements Patient 110 lb Weight Weight Bed scale Measurement Method
--- NOTE | 2017-07-31 08:56 | PN- Cardiology ---
Subjective Subjective: The patient is comfortable sitting in a chair. She is eager to be discharged. She has no chest pain or shortness of breath. She is in atrial fibrillation with a rate in the 90s and low 100s. She is on metoprolol 12.5 mg twice daily. Some of her doses have been held due to borderline BPs. Objective Vital Signs and I&Os Vital Signs Date Time Temp Pulse Resp B/P B/P Pulse O2 O2 Flow FiO2 Mean Ox Delivery Rate 07/31 0704 97.8 66 20 110/70 98 Room Air 07/30 2252 98.6 68 18 94/66 92 Room Air 07/30 2135 68 94/66 07/30 1600 96 Room Air 07/30 1600 97.8 70 18 98/64 96 Room Air 07/30 1459 97.5 70 18 92/60 96 Room Air 07/30 0935 90/48 Intake & Output 07/31 1600 07/31 0800 07/31 0000 07/30 1600 07/30 0800 07/30 0000 Intake Total 200 480 480 200 240 Output Total Balance 200 480 480 200 240 Intake, Oral 200 480 480 200 240 Number 1 2 1 Bowel Movements Patient 110 lb 114 lb Weight Weight Bed scale Bed scale Measurement Method Physical Exam: She is in no distress HEENT exam normal Chest a few fine bibasilar rales Heart irregular, moderate rate, soft systolic ejection murmur at the base Extremities no edema Current Medications: Current Medications Sig/Eulalia Start time Last Medication Dose Route Stop Time Status Admin Acetaminophen 650 MG Q6P PRN 07/24 1800 AC 07/28 PO 1008 Amoxicillin/ 875 MG BID 07/27 1000 AC 07/30 Clavulanate Potassium PO 213 Buspirone HCl 5 MG BID 07/24 2200 AC 07/30 PO 2135 Cholestyramine Resin 1 PAC DAILY 07/25 1000 AC 07/30 PO 0902 Fluoxetine HCl 20 MG QAM 07/25 1000 AC 07/30 PO 0902 Folic Acid 1 MG DAILY 07/25 1000 AC 07/30 PO 09 Furosemide 40 MG DAILY 07/30 1000 DC 07/30 PO 0902 Lactobacillus 2 CAP DAILY 07/25 1000 AC 07/30 Acidophilus PO 0902 Levothyroxine Sodium 0.025 MG DAILY AC 07/29 1015 AC 07/31 PO 0609 Magnesium Chloride 64 MG BID 07/290 AC 07/30 PO 2135 Melatonin 5 MG AT BEDTIME 07/24 2200 AC 07/30 PO 213 Metoprolol Tartrate 12.5 MG BID 07/29 2200 AC 07/29 PO 2303 Morphine Sulfate 2 MG Q4P PRN 07/24 1800 AC IV Ondansetron HCl 4 MG Q6P PRN 07/25 0100 AC IV Polyethylene Glycol 17 GM DAILY 07/25 1000 AC 07/28 PO 0924 Potassium Chloride 20 MEQ DAILY 07/25 1000 AC 07/30 PO 0902 Simethicone 80 MG Q6-PRN PRN 07/24 1745 AC PO Warfarin Sodium 2.5 MG COUMADIN 1700 ONE 07/30 1700 DC 07/30 PO 07/30 1701 1740 Results Last 48 Hrs of Labs/Mics: Laboratory Tests 07/30/17 0652: Anion Gap 1 L, Estimated GFR > 60, BUN/Creatinine Ratio 31.7 H, PT 25.3 H, INR 2.30 H Assessment/Plan Assessment/Plan The patient appears stable from a cardiac standpoint. She is not clinically in congestive heart failure. Her heart rate is upper limits of normal. Her BP is borderline. I recommend increasing metoprolol to 25 mg twice daily. I don't think that will affect her blood pressure too much. She can probably be discharged on this dose. I note the patient's dig level was elevated on admission. I'm not sure how she got on digoxin since on her last hospitalization and on her office visit to me, she was not on this medication. However it has been discontinued and I would not restart it. Continue telemetry? Yes
[2017-07-31 09:50] LABS: PT 20.6 SEC (9.4-12.5)
--- NOTE | 2017-07-31 10:16 | PN- Housestaff ---
Michelle MCKEON,Tracy 07/31/17 1016: Subjective Follow-up For: Atrial Fibrillation Hyponatremia Tele-Events Since Last Visit: No overnight events noted Subjective: Patient sitting comfortably in bed. Complaining of pain in lower extremity and has not been ambulating around much. Breathy improved, no shortness of breath Off the oxygen. Review of Systems Constitutional: Reports: no symptoms. Cardiovascular: Reports: orthopena. Respiratory: Reports: no symptoms. Gastrointestinal: Reports: no symptoms. Genitourinary: Reports: no symptoms. Musculoskeletal: Reports: muscle pain. Objective Last 24 Hrs of Vital Signs/I&O Vital Signs Date Time Temp Pulse Resp B/P B/P Pulse O2 O2 Flow FiO2 Mean Ox Delivery Rate 07/31 1513 97.3 65 20 100/60 98 Room Air 07/31 0907 98 110/70 07/31 0704 97.8 66 20 110/70 98 Room Air 07/30 2252 98.6 68 18 94/66 92 Room Air 07/30 2135 68 94/66 Intake & Output 07/31 1600 07/31 0800 07/31 0000 Intake Total 360 200 480 Output Total 500 Balance -140 200 480 Intake, IV 10 Intake, Oral 350 200 480 Number 1 1 2 Bowel Movements Output, Urine 500 Patient 110 lb Weight Weight Bed scale Measurement Method Physical Exam General Appearance: Alert, Oriented X3, Cooperative, No Acute Distress Skin: No Rashes, No Breakdown Cardiovascular: Normal S1, Normal S2 Lungs: decreased breath sounds on bilateral lung bases Abdomen: Normal Bowel Sounds, Soft, No Tenderness Extremities: No Clubbing, No Cyanosis, No Edema Current Medications: Current Medications Sig/Eulalia Start time Last Medication Dose Route Stop Time Status Admin Acetaminophen 650 MG .STK-MED ONE 07/31 908 DC PO 07/31 909 Acetaminophen 650 MG Q6P PRN 07/24 1800 AC 07/31 PO 0909 Amoxicillin/ 875 MG BID 07/27 1000 DC 07/30 Clavulanate Potassium PO 2135 Buspirone HCl 5 MG BID 07/24 2200 AC 07/31 PO 09 Cholestyramine Resin 1 PAC DAILY 07/25 1000 AC 07/31 PO 0908 Fluoxetine HCl 20 MG QAM 07/25 1000 AC 07/31 PO 0907 Folic Acid 1 MG DAILY 07/25 1000 AC 07/31 PO 0907 Furosemide 20 MG DAILY 07/31 1000 AC 07/31 PO 1141 Lactobacillus 2 CAP DAILY 07/25 1000 AC 07/31 Acidophilus PO 0907 Levothyroxine Sodium 0.025 MG DAILY AC 07/29 1015 AC 07/31 PO 0609 Magnesium Chloride 64 MG BID 07/29 2200 AC 07/31 PO 0907 Melatonin 5 MG AT BEDTIME 07/24 2200 AC 07/30 PO 2135 Metoprolol Tartrate 12.5 MG BID 07/29 2200 AC 07/31 PO 0907 Morphine Sulfate 2 MG Q4P PRN 07/24 1800 DC IV Ondansetron HCl 4 MG Q6P PRN 07/25 0100 AC IV Polyethylene Glycol 17 GM DAILY 07/25 1000 AC 07/31 PO 0907 Potassium Chloride 20 MEQ DAILY 07/25 1000 AC 07/31 PO 0907 Simethicone 80 MG Q6-PRN PRN 07/24 1745 AC PO Warfarin Sodium 2.5 MG COUMADIN 1700 ONE 07/31 1700 DC PO 07/31 1701 Last 24 Hrs of Lab/Merrill Results Last 24 Hrs of Labs/Mics: Laboratory Tests 07/31/17 0855: Anion Gap 0 L, Estimated GFR > 60, BUN/Creatinine Ratio 30.0 H, PT 20.6 H, INR 1.88 H Assessment/Plan Assessment: MS. Lujan is an 81-year-old lady with past medical history of B-cell lymphoma in remission, atrial fibrillation, bioprosthetic valve, DVT on Coumadin, lupus anticoagulant, thalassemia, iron deficiency anemia, osteoporosis, GERD, admitted 2 times in April for acute on chronic CHF and pneumonia now presents with shortness of breath and lower extremity edema. She is being managed for CHF exacerbation and UTI. Problem List; 1. Atrial Fibrillation with Bradycardia 2. Hyponatremia * Repeat CXR thia am to r/o effusion given decreased breath sounds on lung beases - Negative for any edema or effusions. * Decrease lasix to 20mg daily, as the patient no longer has fluid overload and remains hypotensive. * Increase Metoprolol from 12.5 mg to 25mg twice a day. * Continue holding Cardizem. * Discontinue Digoxin. * Appreciate Cardiology recommendations. * Sodium level of 131 this a.m., Will continue to monitor. * INR of 1.80, will give 1 dose of Coumadin 2.5 mg and repeat INR in a.m. * Blood sugar remained stable, no further hypoglycemic events noted. * Appreciate endocrinology recommendations. * Continue levothyroxine 25 MCG daily. DVT prophylaxis with coumadin Patient is DNR/DNI Problem List: 1. Atrial fibrillation 2. Hyponatremia Pain Ratin Pain Location: None Pain Goal: Remain pain free (NA) Pain Plan: Pain pathway Tomorrow's Labs & Rationales: BEP(Hyponatremia) Consulting Request: Consulting Specialty: Cardiology Consulting Physician: Dr. Beltran Reason for Consult: heart failure with preserved ejection fraction Jeannie De León MD 07/31/17 1312: Attending MD Review Statement Attending Statement Attending MD Statement: examined this patient, discuss w/resident/PA/HRIS ADMINISTRATOR, agreed w/resident/PA/HRIS ADMINISTRATOR, reviewed EMR data (avail), discussed with nursing, discussed with case mgmt, amended to note Attending Assessment/Plan: Patient seen and examined. Sitting up comfortably in the chair not in any acute distress. No issues overnight. Her appetite has improved. She has had no further episodes of severe hypoglycemia. Endocrinology evaluation appreciated. On account of her hypothyroidism she has been started on levothyroxine and is tolerating this well. She was started on low-dose beta-shon over the weekend. She received only 1 dose on Monday. Medication has been on hold on account of borderline blood pressure through the weekend. This morning she is tachycardic with heart rate in the 130s at rest. Cardiology service has recommended increasing the dose of metoprolol. On examination patient with longer appears volume overloaded. Peripheral edema has significantly improved. Heart sounds are regular. She however has diminished breath sounds in the right lung field. Recommendations: -On account of her improved volume status and borderline blood pressure decrease Lasix dose is 20 mg daily. -Continue patient on metoprolol, dose has been increased to 25 mg twice daily as recommended by the cardiology service. Pulse rate and blood pressure closely. -Continue patient on levothyroxine. She will be discharged on this medication. -Continue to encourage oral intake. Mobilize patient as tolerated. -Blood pressure is stable over the weekend and she is adequately rate controlled she may be discharged tomorrow to [facility]. -Continue anticoagulation therapy.
--- NOTE | 2017-07-31 12:25 | RADIOLOGY REPORT ---
EXAMINATION: XR PORTABLE CHEST CLINICAL INFORMATION: CHF, reduced breath sounds on right lung base. Improved. Assess lung ovalle for effusion versus atelectasis. COMPARISON: Chest x-ray dated 07/24/2017. TECHNIQUE: Portable AP semierect view of the chest was obtained. FINDINGS: Median sternotomy wires are noted. The cardiomediastinal silhouette is enlarged, unchanged. Low lung volumes are seen. No significant central vascular congestion or pulmonary edema is noted. There is minimal linear platelike atelectasis in the left midlung. Minimal linear opacities medially within both lung bases are also seen, consistent with atelectasis. No dense consolidation is seen. No significant pleural effusion or pneumothorax is noted. Bony structures are unremarkable. IMPRESSION: 1. Cardiomegaly. 2. Bibasilar mild subsegmental atelectasis and platelike atelectasis left midlung. 3. No evidence of pulmonary edema or significant pleural effusion.
[2017-07-31 15:13] VITALS: BP 100/60
[2017-07-31 22:29] VITALS: BP 98/64
[2017-08-01 06:50] VITALS: BP 100/60
--- NOTE | 2017-08-01 07:20 | PN- Housestaff ---
Renetta Caal 08/01/17 0719: Subjective Follow-up For: Atrial Fibrillation Hyponatremia Tele-Events Since Last Visit: A-fib under rate control 52-70s Subjective: No overnight event. Patient was eating breakfast when I entered. Denied CP/ dizziness/urinary symptoms, endorsed some chronic pain on both of her legs, and stated that she had not been walking around a lot but been able to go to restroom by herself. Eager to be discharged today. Review of Systems Constitutional: Reports: see HPI. Objective Last 24 Hrs of Vital Signs/I&O Vital Signs Date Time Temp Pulse Resp B/P B/P Pulse O2 O2 Flow FiO2 Mean Ox Delivery Rate 08/01 0650 97.3 70 20 100/60 98 Room Air 07/31 2229 98.0 66 20 98/64 96 Room Air 07/31 2137 65 98/60 07/31 1513 97.3 65 20 100/60 98 Room Air 07/31 0907 98 110/70 Intake & Output 08/01 0800 08/01 0000 07/31 1600 Intake Total 120 120 360 Output Total 500 Balance 120 120 -140 Intake, IV 10 Intake, Oral 120 120 350 Number 1 1 Bowel Movements Output, Urine 500 Patient 49.64 kg Weight Weight Bed scale Measurement Method Physical Exam General Appearance: Alert, Oriented X3, Cooperative, No Acute Distress Cardiovascular: Irregular rate from A-fib, non-tachy Lungs: Decreased breath sounds on Bilateral lung bases. Abdomen: Soft, No Tenderness Neurological: Normal Speech Extremities: No Edema, BLE tenderness upon pressing however no swelling or active signs of infection. Current Medications: Current Medications Sig/Eulalia Start time Last Medication Dose Route Stop Time Status Admin Acetaminophen 650 MG .STK-MED ONE 07/31 908 DC PO 07/31 909 Acetaminophen 650 MG Q6P PRN 07/24 1800 AC 07/31 PO 09 Amoxicillin/ 875 MG BID 07/27 1000 DC 07/30 Clavulanate Potassium PO 213 Buspirone HCl 5 MG BID 07/24 2200 AC 07/31 PO 213 Cholestyramine Resin 1 PAC DAILY 07/25 1000 AC 07/31 PO 0908 Fluoxetine HCl 20 MG QAM 07/25 1000 AC 07/31 PO 0907 Folic Acid 1 MG DAILY 07/25 1000 AC 07/31 PO 0907 Furosemide 20 MG DAILY 07/31 1000 AC 07/31 PO 1141 Lactobacillus 2 CAP DAILY 07/25 1000 AC 07/31 Acidophilus PO 0907 Levothyroxine Sodium 0.025 MG DAILY AC 07/29 1015 AC 08/01 PO 0546 Magnesium Chloride 64 MG BID 07/29 2200 AC 07/31 PO 2132 Melatonin 5 MG AT BEDTIME 07/24 2200 AC 07/31 PO 2132 Metoprolol Tartrate 25 MG BID 08/01 1000 UNVr PO Metoprolol Tartrate 12.5 MG BID 07/29 2200 DC 07/31 PO 0907 Morphine Sulfate 2 MG Q4P PRN 07/24 1800 DC IV Ondansetron HCl 4 MG Q6P PRN 07/25 0100 AC IV Polyethylene Glycol 17 GM DAILY 07/25 1000 AC 07/31 PO 0907 Potassium Chloride 20 MEQ DAILY 07/25 1000 AC 07/31 PO 0907 Simethicone 80 MG Q6-PRN PRN 07/24 1745 AC PO Warfarin Sodium 2.5 MG COUMADIN 1700 ONE 07/31 1700 DC 07/31 PO 07/31 1701 2132 Last 24 Hrs of Lab/Merrill Results Last 24 Hrs of Labs/Mics: Laboratory Tests 07/31/17 0855: Anion Gap 0 L, Estimated GFR > 60, BUN/Creatinine Ratio 30.0 H, PT 20.6 H, INR 1.88 H Assessment/Plan Assessment: Ms. Lujan is an 81-year-old lady with past medical history of B-cell lymphoma in remission, atrial fibrillation, bioprosthetic valve, DVT on Coumadin, lupus anticoagulant, thalassemia, iron deficiency anemia, osteoporosis, GERD, admitted 2 times in April for acute on chronic CHF and pneumonia presented with shortness of breath and lower extremity edema. She is being managed for CHF exacerbation and UTI. Problem List; 1. Atrial Fibrillation with Bradycardia 2. Hyponatremia * Repeat CXR 07/31 showed negative for any edema or effusions. * Decreased lasix to 20mg daily, as the patient no longer has fluid overload and remains hypotensive, overnight around 100/60s, however no complaint of dizziness or discomfort. - would continue 20mg qd and confirm with Cardio for discharge dose. * Increase Metoprolol from 12.5 mg to 25mg twice a day. - However concerning patient's borderline BP without symptoms, would monitor the BP at noon after morning 25mg dose and confirm with cardio for discharge dose. * Continue holding Cardizem for bradycardia * Discontinued Digoxin. * Appreciate Cardiology recommendations. * Sodium level of 133 this a.m., Will continue to monitor. * INR of 1.88 on latest lab, pending this AM, Patient received 1 dose of Coumadin 2.5 mg on 07/31. - Patient is a hard-stick this morning. * Blood sugar remained stable, no further hypoglycemic events noted. * Appreciate endocrinology recommendations. * Continue levothyroxine 25 MCG daily. DVT prophylaxis with coumadin Heart Healthy Diet w/ 2g sodium Patient is DNR/DNI Problem List: 1. Hyponatremia 2. Bradycardia 3. History of DVT (deep vein thrombosis) 4. Atrial fibrillation Pain Ratin Pain Location: N/A Pain Goal: Remain pain free Pain Plan: see AP Tomorrow's Labs & Rationales: NA Consulting Request: Consulting Specialty: Cardiology Consulting Physician: Dr. Beltran Reason for Consult: heart failure with preserved ejection fraction Genet MCKEON,Jeannie 08/01/17 1059: Attending MD Review Statement Attending Statement Attending MD Statement: examined this patient, discuss w/resident/PA/NATIONAL SALES DIRECTOR, agreed w/resident/PA/NATIONAL SALES DIRECTOR, reviewed EMR data (avail), discussed with nursing, discussed with case mgmt, amended to note Attending Assessment/Plan: Patient seen and examined. Resting comfortably not in any acute distress. No issues overnight. Blood pressure has been running in the low 100s. Case discussed with cardiology service. Recommendations are to continue beta-shon therapy for rate control. Recommendations are to place patient back on her home dose of 25 mg twice daily. She has received a dose of metoprolol this morning. She is alert and oriented 3. She shows no signs of confusion this morning. Appetite has improved. She is no longer hypoglycemic. On examination she shows no evidence of volume overload. She is currently medically stable to be discharged today. [facility]. Patient's son will be looking to long-term care at the [facility] facility if needed. I have also recommended evaluation by palliative care services due to her advanced age and multiple comorbidities. She is to continue Coumadin due to history of A. fib. INR has been therapeutic was 1.88 yesterday. Staff was unable to obtain her INR today. This can be rechecked at the [facility] facility.
[2017-08-01] MEDS ORDERED: FUROSEMIDE20 M1 PO (08:45)
--- NOTE | 2017-08-01 10:32 | PN- Cardiology ---
Subjective Subjective: The patient has no complaints at this time. Her heart rate is improved on higher dose of metoprolol. Her chest x-ray did not show significant heart failure. She is scheduled for discharge today. Objective Vital Signs and I&Os Vital Signs Date Time Temp Pulse Resp B/P B/P Pulse O2 O2 Flow FiO2 Mean Ox Delivery Rate 08/01 1011 74 104/60 08/01 0650 97.3 70 20 100/60 98 Room Air 07/31 2229 98.0 66 20 98/64 96 Room Air 07/31 2137 65 98/60 07/31 1513 97.3 65 20 100/60 98 Room Air Intake & Output 08/01 1600 08/01 0800 08/01 0000 07/31 1600 07/31 0800 07/31 0000 Intake Total 120 120 360 200 480 Output Total 500 Balance 120 120 -140 200 480 Intake, IV 10 Intake, Oral 120 120 350 200 480 Number 1 1 1 2 Bowel Movements Output, Urine 500 Patient 109 lb 110 lb Weight Weight Bed scale Bed scale Measurement Method Physical Exam: She is in no distress HEENT exam normal Chest a few crackles at the bases Heart irregular rhythm, 2 to 3/6 systolic ejection murmur at the base Extremities no edema Current Medications: Current Medications Sig/Eulalia Start time Last Medication Dose Route Stop Time Status Admin Acetaminophen 650 MG Q6P PRN 07/24 1800 AC 07/31 PO 0909 Buspirone HCl 5 MG BID 07/24 2199 AC 08/01 PO 1012 Cholestyramine Resin 1 PAC DAILY 07/25 1000 AC 08/01 PO 1012 Fluoxetine HCl 20 MG QAM 07/25 1000 AC 08/01 PO 1012 Folic Acid 1 MG DAILY 07/25 1000 AC 08/01 PO 1011 Furosemide 20 MG DAILY 07/31 1000 AC 08/01 PO 1011 Lactobacillus 2 CAP DAILY 07/25 1000 AC 08/01 Acidophilus PO 1011 Levothyroxine Sodium 0.025 MG DAILY AC 07/29 1015 AC 08/01 PO 0546 Magnesium Chloride 64 MG BID 07/29 2199 AC 08/01 PO 1011 Melatonin 5 MG AT BEDTIME 07/24 2199 AC 07/31 PO 2132 Metoprolol Tartrate 25 MG BID 08/01 1000 AC 08/01 PO 1011 Metoprolol Tartrate 12.5 MG BID 07/29 2199 DC 07/31 PO 0907 Ondansetron HCl 4 MG Q6P PRN 07/25 0100 AC IV Polyethylene Glycol 17 GM DAILY 07/25 1000 AC 08/01 PO 1011 Potassium Chloride 20 MEQ DAILY 07/25 1000 AC 08/01 PO 1011 Simethicone 80 MG Q6-PRN PRN 07/24 1745 AC PO Warfarin Sodium 2.5 MG COUMADIN 1700 ONE 07/31 1700 DC 07/31 PO 07/31 1701 2132 Results Last 48 Hrs of Labs/Mics: Laboratory Tests 08/01/17 0728: Anion Gap 2 L, Estimated GFR > 60, BUN/Creatinine Ratio 27.1 H, Magnesium 1.8 07/31/17 0855: Anion Gap 0 L, Estimated GFR > 60, BUN/Creatinine Ratio 30.0 H, PT 20.6 H, INR 1.88 H Recent Imaging Studies: PATIENT: NENA GILLIAM PRESENT AGE: 81 PATIENT ACCOUNT NO: [id number] : 34 LOCATION: 1NO ORDERING PHYSICIAN: Magdi Cooper MD SERVICE DATE: 07/31/17 EXAM TYPE: RAD - XRY-PORTABLE CHEST XRAY EXAMINATION: XR PORTABLE CHEST CLINICAL INFORMATION: CHF, reduced breath sounds on right lung base. Improved. Assess lung ovalle for effusion versus atelectasis. COMPARISON: Chest x-ray dated 07/24/2017. TECHNIQUE: Portable AP semierect view of the chest was obtained. FINDINGS: Median sternotomy wires are noted. The cardiomediastinal silhouette is enlarged, unchanged. Low lung volumes are seen. No significant central vascular congestion or pulmonary edema is noted. There is minimal linear platelike atelectasis in the left midlung. Minimal linear opacities medially within both lung bases are also seen, consistent with atelectasis. No dense consolidation is seen. No significant pleural effusion or pneumothorax is noted. Bony structures are unremarkable. IMPRESSION: 1. Cardiomegaly. 2. Bibasilar mild subsegmental atelectasis and platelike atelectasis left midlung. 3. No evidence of pulmonary edema or significant pleural effusion. DICTATED BY: Enriqueta Cline MD DATE/TIME DICTATED:07/31/171219 DELPHI PROGRAMMER:PRAFUL DATE/TIME TRANSCRIBED:03/12/18 / 1220 CONFIDENTIAL, DO NOT COPY WITHOUT APPROPRIATE AUTHORIZATION. <Electronically signed in Other Vendor System> SIGNED BY: Enriqueta Cline MD N. [id number] Assessment/Plan Assessment/Plan The patient is stable for discharge on her current regimen, which includes Lopressor 25 mg twice a day and Lasix 20 mg daily. Her INR is still pending but this should not hold up her discharge as it can be managed as an outpatient. I will follow the patient up in the office in a week or 2. Continue telemetry? Not applicable
[2017-08-01 11:00] VITALS: BP 84/52
--- NOTE | 2017-08-01 11:46 | PN- Endocrinology ---
Assessment/Plan Endoscopy Assessment: MS. Lujan is an 81-year-old lady with complicated past medical history of B-cell lymphoma in remission, atrial fibrillation, bioprosthetic valve, DVT on Coumadin , lupus anticoagulant, thalassemia, iron deficiency anemia, osteoporosis, GERD, chronic CHF and pneumonia was admitted for shortness of breath and lower extremity edema. Patient was found to have low finger stick glucose levels in the morning with glucose level of 50-60. Her po intake was poor. When her glucose level was 63 on 07/26/2017, patient's am cortisol level was 24.8 which is elevated and insulin level was 1.2 which is suppressed. However this morning, her am FSG was 71 and am serum glucose was 56. She was asymptomatic. In addition, her TFT was off. Repeat TFT showed TSH 8.42, free T4 1.29 and TT3 0.66. She was started on Levothyroxine 25 mcg daily on 07/29/2017. She feels better and po intake has been improving. Her FSGs were 75, 105, 98, 108 and 177. Patient's sodium was 130 on 07/30/2017. She is now on free water restriction. Repeat am lab from this morning is 133.. Plan: continue Levothyroxine 25 mcg daily; continue monitoring FSGs; continue monitoring electrolytes; repeat TFT in 4-6 weeks. f/u in office after discharge Subjective Subjective: she feels better. Objective Last 24 Hrs of Vital Signs/I&O Vital Signs Date Time Temp Pulse Resp B/P B/P Pulse O2 O2 Flow FiO2 Mean Ox Delivery Rate 08/01 1011 74 104/60 08/01 0650 97.3 70 20 100/60 98 Room Air 07/31 2229 98.0 66 20 98/64 96 Room Air 07/31 2137 65 98/60 07/31 1513 97.3 65 20 100/60 98 Room Air Intake & Output 08/01 1600 08/01 0800 08/01 0000 Intake Total 120 120 Output Total Balance 120 120 Intake, Oral 120 120 Number 1 Bowel Movements Patient 109 lb Weight Weight Bed scale Measurement Method Results Pertinent Lab/Merrill Results: Laboratory Tests 08/01 0728 Chemistry Sodium (137 - 145 mmol/L) 133 L Potassium (3.5 - 5.1 mmol/L) 4.0 Chloride (98 - 107 mmol/L) 96 L Carbon Dioxide (22 - 30 mmol/L) 36 H Anion Gap (5 - 16) 2 L BUN (7 - 17 mg/dL) 19 H Creatinine (0.5 - 1.0 mg/dL) 0.7 Estimated GFR (>60 ml/min) > 60 BUN/Creatinine Ratio (7 - 25 %) 27.1 H Magnesium (1.6 - 2.3 mg/dL) 1.8
[2017-08-01 12:00] VITALS: BP 82/50
[2017-08-01 13:00] VITALS: BP 90/60
[2017-08-01 14:40] VITALS: BP 92/64
== END 2017-08-01 16:55 | DRG 292 ==
LOC: ERH 10:32 → ERHI 14:23 → 1NO 14:23 → EDBEDREQ 16:43 → ERHI 07-25 11:12 → ENRESERV 07-25 13:28 → ENTRNSPT 07-25 15:59 → 1NO 07-25 16:15 → EDTRNSPTSTS 07-25 16:21 → EDTRNSPT 07-25 16:21 → CMPTRNSPT 07-25 16:22 → 1NO 07-29 09:08 → ENPENDDIS 08-01 10:31 → 1NO 08-01 16:55
PROVIDERS: Internal Medicine; Physician Assistant Medical
PROC: 30233N1 Transfusion of Nonautologous Red Blood Cells into Peripheral Vein, Percutaneous Approach (ICD-10-PCS; principal; 2017-07-31)
DX: I11.0 Hypertensive heart disease with heart failure (principal); E87.2 Acidosis; C85.10 Unspecified B-cell lymphoma, unspecified site; D68.62 Lupus anticoagulant syndrome; N39.0 Urinary tract infection, site not specified; E87.1 Hypo-osmolality and hyponatremia; B96.20 Unspecified Escherichia coli [E. coli] as the cause of diseases classified elsewhere; I48.0 Paroxysmal atrial fibrillation; I50.33 Acute on chronic diastolic (congestive) heart failure; Z79.01 Long term (current) use of anticoagulants; T46.0X5A Adverse effect of cardiac-stimulant glycosides and drugs of similar action, initial encounter; D50.9 Iron deficiency anemia, unspecified; R11.2 Nausea with vomiting, unspecified; R00.1 Bradycardia, unspecified; Z95.2 Presence of prosthetic heart valve; K21.9 Gastro-esophageal reflux disease without esophagitis; Z86.718 Personal history of other venous thrombosis and embolism; F41.9 Anxiety disorder, unspecified; F32.9 Major depressive disorder, single episode, unspecified; E03.9 Hypothyroidism, unspecified; E16.2 Hypoglycemia, unspecified; D56.9 Thalassemia, unspecified; R11.0 Nausea; K29.70 Gastritis, unspecified, without bleeding
CPT/HCPCS: 1NSP; ERO; 36415; 36592; 71045; 81001; 82436; 83525; 86376; 86800; 87086; 93005; 93010; 93306; J0461; J1644; J1940; J3490

== ENCOUNTER 2017-12-17 19:18 | Inpatient (IN) | payer OTHER, MEDICARE ==
[~2017-12-17] VITALS: Ht 152.4 cm; Wt 44.1 kg
[~2017-12-17 19:18] MED LIST changes: +BUSPIRONE HCL5 M1 PO; +DIGOXIN250 MCG PO; +DILTIAZEM HCL30 M1 PO; +FOLIC ACID1 M1 PO; +SIMETHICONE80 M1 PO; +ZOFRAN4 M2 PO
--- NOTE | 2017-12-17 19:46 | ED DYSPNEA/ASTHMA COMPLAINT ---
History of Present Illness General Chief Complaint: General Adult Stated Complaint: BIBA FOR SOB Source: patient, family, old records Exam Limitations: no limitations Vital Signs & Intake/Output Vital Signs & Intake/Output Vital Signs Date Time Temp Pulse Resp B/P B/P Pulse O2 O2 Flow FiO2 Mean Ox Delivery Rate 12/18 0047 142 122/68 12/187 142 122/68 12/17 2251 97.5 114 16 128/75 100 Nasal 3.0L Cannula 12/17 2133 97.6 116 16 102/79 100 Nasal 2.0L Cannula 12/17 2132 96 Nasal 3.0L Cannula 12/17 1924 97.8 86 16 107/75 94 Nasal 2.0L Cannula ED Intake and Output 12/18 0000 12/17 1200 Intake Total 90 Output Total Balance 90 Intake, IV 0 Intake, Oral 90 Patient 103 lb Weight Weight Estimated Measurement Method Allergies Coded Allergies: clarithromycin (From BIAXIN) (Severe, DIARRHEA 02/23/17) lactose (UNKNOWN 07/24/17) Reconcile Medications Acetaminophen (Mapap) 325 MG TABLET 2 TAB PO BID PAIN (Reported) Calcitriol 0.5 MCG CAPSULE 1 CAP PO DAILY SUPPLEMENT (Reported) Ferrous Sulfate (IRON) 325 MG (65 MG IRON) TABLET 1 TAB PO AD SUPPLEMENT ( Reported) Fluoxetine HCl 20 MG CAPSULE 1 CAP PO DAILY MENTAL HEALTH (Reported) Folic Acid 1 MG TABLET 1 TAB PO DAILY SUPPLEMENT (Reported) Furosemide (Lasix) 20 MG TABLET 1 TAB PO DAILY DIURETIC (Reported) Lansoprazole 30 MG CAPSULE.DR 1 CAP PO DAILY GI (Reported) Magnesium Oxide (Magnesium) 400 MG TABLET 1 TAB PO DAILY SUPPLEMENT (Reported ) Metoprolol Tartrate 25 MG TABLET 1 TAB PO BID HEART/BP (Reported) Morphine Sulfate 20 MG/ML SYRINGE 0.125 ML SL Q2H DYSPNEA (Reported) Potassium Chloride 10 MEQ CAPSULE.ER 1 CAP PO DAILY SUPPLEMENT (Reported) Tramadol HCl 50 MG TABLET 1 TAB PO Q4H PRN PAIN (Reported) Warfarin Sodium (Coumadin) 2 MG TABLET 1 TAB PO MONTHRUFRI BLOOD THINNER ( Reported) Warfarin Sodium (Coumadin) 1 MG TABLET 1 TAB PO SATSUN BLOOD THINNER ( Reported) Triage Note: RECEIVED 82 YO FEMALE BIBA FROM [facility] WITH REPORT OF SHORTNESS OF BREATH, WEAKNESS, AND HYPOXIA. O2 SATS AT [facility] 82% ON 3L O2 VIA N/C. PT WITH HX OF AFIB, CHF, HTN, PNA, ON COUMADIN WHICH IS TEMPORARILY ON HOLD FOR SCHEDULED ANGIOPLASTLY ON 12/19/17. PT COMES IN WITH WOUNDS TO BILATERAL HEELS AND RIGHT CALF. GRACIE WRAP PRESENT BILATERALLY ON LOWER EXTREMITIES. PT REPORTS WEAKER THAN NORMAL, VERY TIRED. O2 SATS 96-97% ON 2L O2 VIA N/C. Triage Nurses Notes Reviewed? yes Onset: Abrupt Duration: day(s): (1), constant, continues in ED Timing: recent history Severity: moderate, severe HPI: 82-year-old female [facility] for increased weakness shortness of breath. Symptoms began this morning. No fever or cough or complaints of chest pain. She has a decreased appetite. She slid out of her recliner chair to the ground but did not hit her head. It was a very slow gradual fall to the ground. (Damon Lamar) Past History Travel History Traveled to [place] past 21 day No Medical History Any Pertinent Medical History? 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 MOTHER, ; Cause: Pancreatic cancer. Hx Contributory? No (Damon Lamar) Review of Systems Review of Systems Constitutional: Reports: no symptoms. EENTM: Reports: see HPI. Respiratory: Reports: see HPI. Cardiovascular: Reports: see HPI. GI: Reports: no symptoms. Genitourinary: Reports: no symptoms. Musculoskeletal: Reports: no symptoms. Skin: Reports: no symptoms. Neurological/Psychological: Reports: no symptoms. Hematologic/Endocrine: Reports: no symptoms. Immunologic/Allergic: Reports: no symptoms. All Other Systems: Reviewed and Negative (Damon Lamar) Physical Exam Physical Exam General Appearance: well developed/nourished, no apparent distress, alert, awake Head: atraumatic, normal appearance Eyes: Bilateral: normal appearance. Ears, Nose, Throat: normal ENT inspection, hearing grossly normal Neck: normal inspection, full range of motion Respiratory: decreased breath sounds, rales Cardiovascular: irregularly irregular Gastrointestinal: soft Extremities: normal inspection Neurologic/Psych: awake, alert, oriented x 3 Skin: intact, normal color Core Measures ACS in differential dx? No CVA/TIA Diagnosis No Sepsis Present: No Sepsis Focused Exam Completed? No (Damon Lamar) Progress Differential Diagnosis: asthma, AMI, bronchitis, costochondritis, CHF, COPD, musculoskeletal pain, pericarditis, pulmonary embolism, pneumonia, pneumothorax, rib fracture, unstable angina Plan of Care: Orders Procedure Date/time Status Nothing by Mouth 12/18 B Active Patient Data 12/18 0140 Active Saline Lock 12/17 2256 Active Misc Message 12/17 2256 Active ED Holding Orders 12/17 2256 Active Admit to inpatient 12/17 2256 Active Vital Signs 12/17 2256 Active Code Status 12/17 2256 Active PROTHROMBIN TIME 12/18 2239 Complete Add-on Test (ER Only) 12/17 2224 Active Add-on Test (ER Only) 12/17 194 Active Telemetry/Human Resources File Clerk 12/18 1927 Active TROPONIN LEVEL 12/18 1927 Complete MAGNESIUM 12/18 1927 Complete COMPREHENSIVE METABOLIC PANEL 12/18 1927 Complete CBC WITHOUT DIFFERENTIAL 12/18 1927 Complete B-TYPE NATRIURETIC PEP (BNP) 12/18 1927 Complete EKG 12/18 1927 Active Laboratory Tests 12/17/17 2240: PT 48.6 *H, INR 4.39 *H 12/17/172108: Anion Gap 10, Estimated GFR > 60, BUN/Creatinine Ratio 57.1 H, Glucose 78, Calcium 6.9 L, Magnesium 1.0 L, Total Bilirubin 0.7, AST 21, ALT 29, Alkaline Phosphatase 70, Troponin I 0.03, Pna-U-Ekulijnbgsx Pept 6060 H, Total Protein 4.9 L, Albumin 2.4 L, Globulin 2.5, Albumin/Globulin Ratio 1.0 L, CBC w Diff NO MAN DIFF REQ, RBC 4.05 L, MCV 95.0, MCH 31.1 H, MCHC 32.7 L, RDW 17.3 H, MPV 8.7, Gran % 80.4 H, Lymphocytes % 12.4 L, Monocytes % 7.0, Eosinophils % 0 , Basophils % 0.2, Absolute Granulocytes 12.3 H, Absolute Lymphocytes 1.9, Absolute Monocytes 1.1 H, Absolute Eosinophils 0, Absolute Basophils 0 Diagnostic Imaging: Viewed by Me: Radiology Read. Discussed w/RAD: Radiology Read. Radiology Impression: PATIENT: NENA GILLIAM PRESENT AGE : 82 PATIENT ACCOUNT NO: [id number] : 34 LOCATION: [facility] ORDERING PHYSICIAN: Damon CARRILLO SERVICE DATE: 12/17/17 EXAM TYPE: RAD - XRY-PORTABLE CHEST XRAY EXAMINATION: XR PORTABLE CHEST CLINICAL INFORMATION: Shortness of breath COMPARISON: July 2017 TECHNIQUE: Portable frontal view of the chest was obtained. FINDINGS: Newly developed opacification over the RIGHT lung likely large pleural effusion with probably underlying infiltrates and/or atelectasis. There is mild vascular congestion. IMPRESSION: Mild pulmonary vascular congestion, large RIGHT pleural effusion with probably underlying infiltrates and/or atelectasis. Follow-up chest PA and lateral recommended when patient's condition permits. DICTATED BY: Ally Tejada MD DATE/TIME DICTATED :12/17/172031 ASSISTANT PROFESSOR OF PHILOSOPHY:PRAFUL DATE/TIME TRANSCRIBED:12/17/172031 CONFIDENTIAL, DO NOT COPY WITHOUT APPROPRIATE AUTHORIZATION. < Electronically signed in Other Vendor System> SIGNED BY: Ally Tejada MD 12/17/172036 Initial ED EKG: rate (112), AFIB (Damon Lamar) Departure Departure Disposition: STILL A PATIENT Condition: Stable Clinical Impression Primary Impression: Acute CHF (congestive heart failure) Referrals: Jesus Huitron MD (PCP/Family) Departure Forms: Customer Survey General Discharge Information (Damon Lamar) Admission Note Spoke With: Grant Vanessa MD Documentation of Exam: Documentation of any treatments & extenuating circumstances including Concerns Regarding Discharge (functional status, medication knowledge or non-compliance, living conditions, etc.) that warrant an admission rather than observation: pt with h/o chf, presenting with hypoxia, dyspnea, large new right pleural effusion noted... i doubt pneumonia at this point, but would monitor for sx closely... pt merits iv lasix, 02 support, cards eval in AM. PA/SENIOR ENERGY CONSULTANT Co-Sign Statement Statement: ED Attending supervision documentation- [X] I saw and evaluated the patient. I have also reviewed all the pertinent lab results and diagnostic results. I agree with the findings and the plan of care as documented in the PA's/SENIOR ENERGY CONSULTANT's documentation. 12/17/17, 23:01... pt resting comfortably, diminished breath sounds at right base. pt afebrile, with dry cough cough... [] I have reviewed the ED Record and agree with the PA's/SENIOR ENERGY CONSULTANT's documentation. [] Additions or exceptions (if any) to the PAs/SENIOR ENERGY CONSULTANT's note and plan are summarized below: [] (Maddi MCKEON,Cristobal Diamond) Critical Care Note Critical Care Note Critical Care Time: non-applicable (Damon Lamar)
--- NOTE | 2017-12-17 20:37 | RADIOLOGY REPORT ---
EXAMINATION: XR PORTABLE CHEST CLINICAL INFORMATION: Shortness of breath COMPARISON: July 2017 TECHNIQUE: Portable frontal view of the chest was obtained. FINDINGS: Newly developed opacification over the RIGHT lung likely large pleural effusion with probably underlying infiltrates and/or atelectasis. There is mild vascular congestion. IMPRESSION: Mild pulmonary vascular congestion, large RIGHT pleural effusion with probably underlying infiltrates and/or atelectasis. Follow-up chest PA and lateral recommended when patient's condition permits.
[2017-12-17] MEDS ORDERED: LANSOPRAZOLE30 M2 PO (20:45)
[2017-12-17] MEDS ORDERED: CALCITRIOL0.5 MC1 PO (20:46)
[2017-12-17] MEDS ORDERED: IRON325 M3 PO (20:46)
[2017-12-17] MEDS ORDERED: METOPROLOL TART25 M1 PO (20:47)
[2017-12-17] MEDS ORDERED: POTASSIUM CHLO10 ME3 PO (20:47)
[2017-12-17] MEDS ORDERED: MAGNESIUM400 MG PO (20:47)
[2017-12-17] MEDS ORDERED: FLUOXETINE HCL20 M2 PO (20:47)
[2017-12-17] MEDS ORDERED: LASIX20 M1 PO (20:48)
[2017-12-17] MEDS ORDERED: MAPAP500 M2 PO (20:48)
[2017-12-17] MEDS ORDERED: COUMADIN2 M1 PO (20:49)
[2017-12-17] MEDS ORDERED: COUMADIN1 M1 PO (20:50)
[2017-12-17] MEDS ORDERED: TRAMADOL HCL50 M1 PO (20:51)
[2017-12-17] MEDS ORDERED: MORPHINE S20 MG/1 ML SL (20:53)
[2017-12-17 21:46] LABS: ABSOLUTE BASOPHIL COUNT 0 /CUMM (0.0-0.2); ABSOLUTE EOSINOPHIL COUNT 0 /CUMM (0.0-0.7); ABSOLUTE GRANULOCYTE CT 12.3 /CUMM (1.4-6.5); ABSOLUTE LYMPH COUNT 1.9 /CUMM (1.2-3.4); ABSOLUTE MONOCYTE COUNT 1.1 /CUMM (0.10-0.60); BASOPHIL % 0.2 % (0.0-2.0); EOSINOPHIL % 0 % (0-5); GRANULOCYTE % 80.4 % (42.2-75.2); HEMATOCRIT 38.5 % (37-47); MEAN CORPUSCULAR HGB 31.1 PG (27.0-31.0); MEAN CORPUSCULAR HGB CONC 32.7 G/DL (33.0-37.0); MEAN PLATELET VOLUME 8.7 FL (7.4-10.4); PLATELET COUNT 170 /CUMM (130-400); RBC DISTRIBUTION WIDTH 17.3 % (11.5-14.5); RED BLOOD CELL CT 4.05 /CUMM (4.20-5.40); WHITE BLOOD CELL COUNT 15.3 /CUMM (4.8-10.8)
[2017-12-17 23:31] LABS: PT 48.6 SEC (9.4-12.5)
--- NOTE | 2017-12-18 01:47 | History & Physical ---
Raymond Pringle 12/18/17 0146: General Information and HPI MD Statement: I have seen and personally examined NENA GILLIAM and documented this H&P. The patient is a 82 year old F who presented with a patient stated chief complaint of [shortness of breath, hypoxia]. Source of Information: patient Exam Limitations: no limitations History of Present Illness: The patient is an 82-year-old female with a past medical history significant for heart failure (EF >60%), atrial fibrillation, valve replacement, and lymphoma who has been brought here by ambulance because of shortness of breath, weakness, hypoxia. She was admitted to [facility] in July for 1 week with chief complaint of weakness shortness of breath, weight gain, lower extremity edema. She was treated for acute decompensation of congestive heart failure exacerbation, digoxin toxicity, and urinary tract infection. The patient has dementia and she is a poor historian. She mentions that she has had no appetite for 2 days, she has weakness, shortness of breath, and has not been drinking for the past 2 days. She was scheduled to have angioplasty done in 1 day but since she thinks it is too painful she does not want to undergo with. She complains of a dry cough once in a while she is states that she had nausea and vomiting yesterday but no chills and no fever. Papers from half-way reports that she had increased work of breath with low O2 saturation about 80s so she was put on oxygen and sent to ER. Past medical history: HFpEF (LVEF >60%), B-cell lymphoma, atrial fibrillation on Coumadin, bioprosthetic AVR, DVT, lupus anticoagulant, thalassemia, iron deficiency anemia, GERD, and dementia Past surgical history: Valve replacement Family history: Her father was due to heart disease and also her mother because of pancreatic cancer Social history: I was not able to collect information Allergies/Medications Allergies: Coded Allergies: clarithromycin (From BIAXIN) (Severe, DIARRHEA 02/23/17) lactose (UNKNOWN 07/24/17) Home Med list Acetaminophen (Mapap) 500 MG CAPSULE 1 CAP PO BID PRN PAIN (Reported) Calcitriol 0.5 MCG CAPSULE 1 CAP PO DAILY SUPPLEMENT (Reported) Ferrous Sulfate (IRON) 325 MG (65 MG IRON) TABLET 1 TAB PO AD SUPPLEMENT ( Reported) Fluoxetine HCl 20 MG CAPSULE 1 CAP PO DAILY MENTAL HEALTH (Reported) Folic Acid 1 MG TABLET 1 TAB PO DAILY SUPPLEMENT (Reported) Furosemide (Lasix) 20 MG TABLET 1 TAB PO DAILY DIURETIC (Reported) Lansoprazole 30 MG CAPSULE.DR 1 CAP PO DAILY GI (Reported) Magnesium Oxide (Magnesium) 400 MG TABLET 1 TAB PO DAILY SUPPLEMENT (Reported ) Metoprolol Tartrate 25 MG TABLET 1 TAB PO BID HEART/BP (Reported) Morphine Sulfate 20 MG/ML SYRINGE 0.125 ML SL Q2H DYSPNEA (Reported) Potassium Chloride 10 MEQ CAPSULE.ER 1 CAP PO DAILY SUPPLEMENT (Reported) Tramadol HCl 50 MG TABLET 1 TAB PO Q4H PRN PAIN (Reported) Warfarin Sodium (Coumadin) 2 MG TABLET 1 TAB PO MONTHRUFRI BLOOD THINNER ( Reported) Warfarin Sodium (Coumadin) 1 MG TABLET 1 TAB PO SATSUN BLOOD THINNER ( Reported) Compliance With Home Meds: UNKNOWN Past History Travel History Traveled to [place] past 21 day No Medical History Neurological: NONE EENT: NONE Cardiovascular: AFIB, CHF, VALVE REPLACEMENT BRADYCARDIA/TACHYCARDIA Respiratory: NONE Gastrointestinal: GERD Hepatic: NONE Renal: NONE Musculoskeletal: NONE Psychiatric: NONE Endocrine: NONE Blood Disorders: anemia Cancer(s): LYMPH[employer] DIRECTOR/Reproductive: NONE History of MRSA: No History of VRE: No History of CDIFF: No Surgical History Surgical History: VALVE REPLACEMENT Past Family/Social History Family History Relations & Conditions if any FATHER, ; Cause: Heart disease. MOTHER, ; Cause: Pancreatic cancer. Review of Systems Review of Systems Constitutional: Reports: see HPI. EENTM: Reports: see HPI. Cardiovascular: Reports: see HPI. Respiratory: Reports: see HPI. GI: Reports: see HPI. Genitourinary: Reports: see HPI. Musculoskeletal: Reports: see HPI. Skin: Reports: see HPI. Neurological/Psychological: Reports: see HPI. Hematologic/Endocrine: Reports: see HPI. Immunologic/Allergic: Reports: see HPI. Exam & Diagnostic Data Last 24 Hrs of Vital Signs/I&O Vital Signs Date Time Temp Pulse Resp B/P B/P Pulse O2 O2 Flow FiO2 Mean Ox Delivery Rate 12/18 0525 97 Nasal 2.0L Cannula 12/18 0434 116 113/68 12/18 0047 142 122/68 12/18 0047 142 122/68 12/17 2251 97.5 114 16 128/75 100 Nasal 3.0L Cannula 12/174 97.6 116 16 102/79 100 Nasal 2.0L Cannula 12/173 96 Nasal 3.0L Cannula 12/17 1924 97.8 86 16 107/75 94 Nasal 2.0L Cannula Intake & Output 12/18 0800 12/18 0000 12/17 1600 Intake Total 240 90 Output Total Balance 240 90 Intake, IV 0 Intake, Oral 240 90 Patient 103 lb Weight Weight Estimated Measurement Method Physical Exam General Appearance No Acute Distress Skin No Rashes Skin Temp/Moisture Exam: Warm/Dry Sepsis Skin Exam (color): Normal for Ethnicity HEENT Atraumatic, PERRLA, EOMI Neck Supple, No JVD Cardiovascular irregularly irregular Lungs decreased breath sounds at both bases. Poor air movement Abdomen Normal Bowel Sounds, Soft, No Tenderness Assessment/Plan Assessment: Patient is an 82-year-old female past medical history significant for atrial fibrillation, heart failure with preserved ejection fraction, but also lymphoma who presents to the ED for with chief complaint of loss of appetite, weakness, shortness of breath, and hypoxia. During the interview and physical exam she was noted in acute distress and she did have shortness of breath. She had tachycardia with heart rate of 120-140s. Physical examination showed decreased breathing sounds in the right side, bilateral generalized crackles which was more prevalent on the right side. She had leukocytosis of white BC 15.3, hyperkalemia with potassium of 3.2, hypocalcemia 6.9 after correction for albumin is 2.4. Magnesium level was 1.0. ProBNP was 6060. Troponin was 0.03, and INR 4.39. Chest x-ray showed right- sided pleural effusion with pulmonary vascular congestion. The patient has severe malnutrition with albumin of 2.4, and probably mild acute on chronic heart failure with preserved ejection fraction of the leg causes for right-sided pleural effusion which has caused dyspnea and desaturation. She also has bilateral lower extremity pitting edema. She was previously on warfarin which was handed because of scheduling angioplasty on December 19. Since the effusion on the right side is considerable, she might need thoracocentesis at some point so we will hold her warfarin. Meanwhile she is admitted to 20 minutes 3 floor for monitoring, electrolyte repletion, following INR, and intravenous diuresis. Problem list: 1. Acute on chronic heart failure with preserved ejection fraction 2. Large right-sided pleural effusion 3. Atrial fibrillation with RVR 4. Supratherapeutic INR 5. Hypomagnesemia 6. Dementia As Ranked By This Provider Problem List: 1. Acute CHF (congestive heart failure) 2. Atrial fibrillation 3. Supratherapeutic INR Core Measures/Misc (02/05) Acute Coronary Syndrome ACS Diagnosis: No Congestive Heart Failure Congestive Heart Failure Diagnosis Yes Last Known EF % 60 Cerebrovascular Accident CVA/TIA Diagnosis: No VTE (View Protocol) VTE Risk Factors Age>40 No Mechanical VTE Prophylaxis d/t N/A MechProphylax Ordered No VTE Pharm Prophylaxis d/t NA PharmProphylax ordered Sepsis (View protocol) Sepsis Present: No If YES complete Sepsis Event Note If YES complete Sepsis Event Note Anthony Dawson MD 12/18/17 0153: Core Measures/Misc (02/05) Sepsis (View protocol) If YES complete Sepsis Event Note If YES complete Sepsis Event Note Resident Review Statement Resident Statement: examined this patient, discussed with web development intern, agreed with web development intern, reviewed EMR data (avail) Other Findings: History of Present Illness 82-year-old with past medical history of HFpEF (LVEF >60%), B-cell lymphoma, atrial fibrillation on Coumadin, bioprosthetic AVR, DVT, lupus anticoagulant, thalassemia, iron deficiency anemia, GERD, and dementia brought in by ambulance from [facility] for evaluation of shortness of breath, weakness and hypoxia. Patient was previously admitted to [facility] from 07/24/17-08/01/17 for evaluation of weakness, shortness breath, and lower extremity swelling with weight gain and treated for acute decompensated CHF exacerbation, UTI, and digoxin toxicity. She was diuresed, treated with antibiotics, and discontinued from digoxin uptitrated on her beta-shon discharged back to her ECF. Patient is a poor historian and does not return specific details of the day. Collateral information obtained from the [facility] paperwork / W10. Patient was reportedly seen to have increased work of breathing for which an SpO2 was taken that was apparently in the 80's for which she was placed on oxygen and sent to the [place] ED. Presently patient states that her breathing is well but does admit to recent profound weakness with decreased oral intake of food and water with occasional nausea with non-bloody bilious vomiting. Review of systems She otherwise denies any fever, chills, blurred/double vision, chest pain, palpitations, heartburn, current shortness of breath, abdominal pain, constipation, or urinary symptoms. Objective Vitals: Temp 97.5-97.8, HR 86-142, RR 16, BP 102-120/68-79, SPO2 94-100% on 3.0L Physical exam -General: elderly woman in no acute distress -HEENT: NCAT, PERRL, EOMI, anicteric sclera -Neck: Supple, no JVP, trachea midline, no accessory respiratory muscle use -Cardio: irregularly irregular; rate normal -Pulmonary: Diminished right sided airflow with bilateral crackles -Abdomen: Soft, NT, ND, BS+ -Neuro: Awake and alert, CN II-XII grossly intact -Extremities: trace bilateral lower extremity nonpitting edema, normal pulses Labs/imaging/studies -CBC: WBC 15.3, hemoglobin 12.6, hematocrit 30.5, platelet 170 -BMP: Sodium 138, potassium 3.2, chloride 109, CO2 19, BUN 40, creatinine 0.7, anion gap 10, glucose 78 -LFT: Within normal limits -Miscellaneous: Calcium 6.9, magnesium 1.0, albumin 2.4, BNP 6060, troponin I 0.03 -EKG: Afib with RVR, Left axis deviation, poor r-wave progression, old anterior/ inferior PR -Echocardiogram 07/26/17: LVEF >60% without regional wall motion LVH, moderate/ severe biatrial enlargement, moderate MR/TR, mild -CXR: * Mild pulmonary vascular congestion, large RIGHT pleural effusion with probably underlying infiltrates and/or atelectasis. Follow-up chest PA and lateral recommended when patient's condition permits. Assessment 82-year-old woman with multiple medical problems significant for HFpEF, A. fib, [facility] of shortness of breath, weakness, and hypoxia. Patient admits to feeling fatigued and otherwise denies any symptoms including current shortness of breath. Vitals are significant for elevated heart rate up to 140s and low normal spO2 on room air. Physical exam demonstrated diminished right lung sounds with bilateral scattered scant crackles (Right > Left). Significant labs include WBC 15.3, K 3.2, Ca 6.9, albumin 2.4, Mg 1.0, BNP 6K, troponin I 0.03, and INR 4.39. CXR demonstrates a large right sided pleural effusion with pulmonary vascular congestion. Clinically patient appears to have a mild acute on chronic HFpEF exacerbation with third spacing of fluid resulting in a large right sided pleural effusion and subjective dyspnea and reported hypoxia; she has flat neck veins with trace lower extremity edema. She has a supratherapeutic INR despite reports from the [facility] that coumadin was being held in anticipation for a peripheral angioplasty on 12/19/17; which will now have to be deferred. Patient is in no acute respiratory distress and does not urgently need reversal of her INR for a thoracentesis; however will be kept NPO should her condition decline. Patient is being admitted to the telemetry floor for telemetry monitoring, intravenous diuresis, electrolyte repletion, INR monitoring, rate control if needed, and possible thoracentesis. She may require a cardiology evaluation. Problem list -Acute on Chronic HFpEF -Large right sided pleural effusion -Atrial fibrillation with rapid ventricular response -Possible pulmonary infiltrate, unlikely pneumonia -Supratherapeutic INR -Hypomagnesenemia -Dementia -History of Atrial fibrillation, on Coumadin -Bioprosthetic aortic valve -History of B-cell lymphoma, "in remission" -History of DVT -History of lupus anticoagulant -Thalassemia -Iron Deficiency Anemia -Osteoporosis -GERD Plan -Admit to telemetry -Telemetry monitoring -Strict ins and outs, daily weights -Whitaker catheter -Total respiratory care -Supplemental oxygen, goal >92%, taper as tolerated -No antibiotics for now -Lasix 40 mg IV Daily, titrate to net negative 1 liter per day -Hold coumadin and oral lasix -Continue home meds: Calcitriol, iron, fluoxetine, folic acid, PPO, magnesium, metoprolol, KCl, tramadol -Daily INR -Consider right sided diagnostic/therapeutic thoracentesis -Monitor BMP, Mg; replete as needed -Pain control with acetaminophen -NPO for possible thoracentesis -DVT PPx with supratherapeutic INR, ALPS -DNR paper on chart Rasheeda MCKEONGrant 12/18/17 2855: General Information and HPI Statement: I have seen and personally examined NENA GILLIAM and documented this H&P. The patient is a 82 year old F who presented with a patient stated chief complaint of [shortness of breath]. Source of Information: old records Exam Limitations: confusion, dementia Past History Medical History Neurological: dementia Cardiovascular: AFIB, CHF, VALVE REPLACEMENT BRADYCARDIA/TACHYCARDIA Gastrointestinal: GERD Surgical History Surgical History: VALVE REPLACEMENT Past Family/Social History Psychosocial History Smoking Status: Never Smoked ETOH Use: denies use Illicit Drug Use: denies illicit drug use Employment History Employment Retired Review of Systems Review of Systems Constitutional: Reports: see HPI. Exam & Diagnostic Data Last 24 Hrs of Vital Signs/I&O Vital Signs Date Time Temp Pulse Resp B/P B/P Pulse O2 O2 Flow FiO2 Mean Ox Delivery Rate 12/18 0525 97 Nasal 2.0L Cannula 12/18 0434 116 113/68 12/18 0047 142 122/68 12/18 0047 142 122/68 12/17 2251 97.5 114 16 128/75 100 Nasal 3.0L Cannula 12/17 2133 97.6 116 16 102/79 100 Nasal 2.0L Cannula 12/17 2132 96 Nasal 3.0L Cannula 12/17 1925 97.8 86 16 107/75 94 Nasal 2.0L Cannula Intake & Output 12/18 0800 12/18 0000 12/17 1600 Intake Total 240 90 Output Total Balance 240 90 Intake, IV 0 Intake, Oral 240 90 Patient 103 lb Weight Weight Estimated Measurement Method Physical Exam General Appearance No Acute Distress HEENT Atraumatic, PERRLA, EOMI Neck Supple, No JVD Cardiovascular irregularly irregular Lungs decreased breath sounds at both bases. Poor air movement Abdomen Normal Bowel Sounds, Soft, No Tenderness Last 24 Hrs of Labs/[place]: Laboratory Tests 12/18/17 0517: Sodium Pending, Potassium Pending, Chloride Pending, Carbon Dioxide Pending, Anion Gap Pending, BUN Pending, Creatinine Pending, BUN/Creatinine Ratio Pending , Magnesium Pending, PT Pending, INR Pending, CBC w Diff Pending, WBC Pending, RBC Pending, Hgb Pending, Hct Pending, MCV Pending, MCH Pending, MCHC Pending, RDW Pending, Plt Count Pending, MPV Pending 12/18/17 0333: Urine Color YEL, Urine Clarity CLEAR, Urine pH 6.0, Ur Specific [place] 1.015, Urine Protein NEG, Urine Ketones NEG, Urine Nitrite NEG, Urine Bilirubin NEG, Urine Urobilinogen 0.2, Ur Leukocyte Esterase NEG, Ur Microscopic EXAM NOT REQUIRED, Urine Hemoglobin NEG, Urine Glucose NEG 12/17/17 2240: PT 48.6 *H, INR 4.39 *H 12/17/17 2109: Anion Gap 10, Estimated GFR > 60, BUN/Creatinine Ratio 57.1 H, Glucose 78, Calcium 6.9 L, Magnesium 1.0 L, Total Bilirubin 0.7, AST 21, ALT 29, Alkaline Phosphatase 70, Troponin I 0.03, [id number]-[id number] Pept 6060 H, Total Protein 4.9 L, Albumin 2.4 L, Globulin 2.5, Albumin/Globulin Ratio 1.0 L, CBC w Diff NO MAN DIFF REQ, RBC 4.05 L, MCV 95.0, MCH 31.1 H, MCHC 32.7 L, RDW 17.3 H, MPV 8.7, Gran % 80.4 H, Lymphocytes % 12.4 L, Monocytes % 7.0, Eosinophils % 0 , Basophils % 0.2, Absolute Granulocytes 12.3 H, Absolute Lymphocytes 1.9, Absolute Monocytes 1.1 H, Absolute Eosinophils 0, Absolute Basophils 0 Microbiology 12/18 0359 URINE ROUT: Urine Culture - CAN Cancelled: Cancelled via OE: DUPLICATE 12/18 033 URINE ROUT: Urine Culture - RECD Core Measures/Misc (02/05) Sepsis (View protocol) If YES complete Sepsis Event Note If YES complete Sepsis Event Note Attending MD Review Statement Attending Statement Attending MD Statement: examined this patient, discuss w/resident/PA/[employer] CHIEF, agreed w/resident/PA/[employer] CHIEF, reviewed EMR data (avail) Attending Assessment/Plan: This patient is an 82-year-old female with a significant past medical history for multiple admissions, HFpEF (LVEF >60%), B-cell lymphoma, atrial fibrillation on Coumadin, bioprosthetic AVR, DVT, lupus anticoagulant, thalassemia, iron deficiency anemia, GERD, and dementia brought in by ambulance from [facility] for evaluation of shortness of breath, weakness and hypoxia. She was most recently admitted to [facility] from 07/24/17-08/01/17 for evaluation of weakness, shortness breath, and lower extremity swelling with weight gain and treated for acute decompensated CHF exacerbation, UTI, and digoxin toxicity. She was diuresed, treated with antibiotics, and discontinued from digoxin and her beta-shon was increased. She was discharged back to her ECF. The patient is a poor historian and does not return specific details of the day. Collateral information obtained from the [facility] paperwork / W10. Patient was reportedly seen to have increased work of breathing for which an SpO2 was taken that was apparently in the 80's for which she was placed on oxygen and sent to the [place] ED. Upon evaluation in the ED: VSS (3L NC), heart irregularly irregular, WBC 15.3, potassium 3.2, BUN 40, creatinine 0.7, BNP 6060 , troponin I 0.03, INR 4.39 , EKG - Afib with RVR, Left axis deviation, poor r-wave progression, old anterior/inferior PR, and CXR- large RIGHT pleural effusion with probably underlying infiltrates and/or atelectasis. Admit to the telemetry floor for monitoring, intravenous diuresis, electrolyte repletion, INR monitoring, rate control if needed, follow off antibiotics and possible thoracentesis. She may require a cardiology evaluation.
[2017-12-18 05:31] LABS: ABSOLUTE BASOPHIL COUNT 0.2 /CUMM (0.0-0.2); ABSOLUTE EOSINOPHIL COUNT 0 /CUMM (0.0-0.7); ABSOLUTE GRANULOCYTE CT 8.3 /CUMM (1.4-6.5); ABSOLUTE LYMPH COUNT 1.8 /CUMM (1.2-3.4); BASOPHIL % 1.5 % (0.0-2.0); EOSINOPHIL % 0.1 % (0-5); GRANULOCYTE % 73.4 % (42.2-75.2); MEAN CORPUSCULAR HGB 31.8 PG (27.0-31.0); MEAN CORPUSCULAR HGB CONC 33.5 G/DL (33.0-37.0); MEAN CORPUSCULAR VOLUME 94.9 FL (81.0-99.0); MEAN PLATELET VOLUME 9.1 FL (7.4-10.4); PLATELET COUNT 117 /CUMM (130-400); RBC DISTRIBUTION WIDTH 16.8 % (11.5-14.5); WHITE BLOOD CELL COUNT 11.3 /CUMM (4.8-10.8)
--- NOTE | 2017-12-18 08:09 | Event Note ---
Event Note Event Note: 82-year-old with past medical history of HFpEF (LVEF >60%), B-cell lymphoma, atrial fibrillation on Coumadin, bioprosthetic AVR, DVT, lupus anticoagulant, thalassemia, iron deficiency anemia, GERD, and dementia brought in by ambulance from [facility] for evaluation of shortness of breath, weakness and hypoxia. Patient was previously admitted to [facility] from 07/24/17-08/01/17 for evaluation of weakness, shortness breath, and lower extremity swelling with weight gain and treated for acute decompensated CHF exacerbation, UTI, and digoxin toxicity. She was diuresed, treated with antibiotics, and discontinued from digoxin uptitrated on her beta-shon discharged back to her ECF. Patient is a poor historian and does not return specific details of the day. Collateral information obtained from the [facility] paperwork / W10. Patient was reportedly seen to have increased work of breathing for which an SpO2 was taken that was apparently in the 80's for which she was placed on oxygen and sent to the [place] ED. Presently patient states that her breathing is well but does admit to recent profound weakness with decreased oral intake of food and water with occasional nausea with non-bloody bilious vomiting. Review of systems She otherwise denies any fever, chills, blurred/double vision, chest pain, palpitations, heartburn, current shortness of breath, abdominal pain, constipation, or urinary symptoms. Objective Vitals: Temp 97.5-97.8, HR 86-142, RR 16, BP 102-120/68-79, SPO2 94-100% on 3.0L Physical exam -General: elderly woman in no acute distress -HEENT: NCAT, PERRL, EOMI, anicteric sclera -Neck: Supple, no JVP, trachea midline, no accessory respiratory muscle use -Cardio: irregularly irregular; rate normal -Pulmonary: Diminished right sided airflow with bilateral crackles -Abdomen: Soft, NT, ND, BS+ -Neuro: Awake and alert, CN II-XII grossly intact -Extremities: trace bilateral lower extremity nonpitting edema, normal pulses Labs/imaging/studies -CBC: WBC 15.3, hemoglobin 12.6, hematocrit 30.5, platelet 170 -BMP: Sodium 138, potassium 3.2, chloride 109, CO2 19, BUN 40, creatinine 0.7, anion gap 10, glucose 78 -LFT: Within normal limits -Miscellaneous: Calcium 6.9, magnesium 1.0, albumin 2.4, BNP 6060, troponin I 0.03 -EKG: Afib with RVR, Left axis deviation, poor r-wave progression, old anterior/ inferior [place] -Echocardiogram 07/26/17: LVEF >60% without regional wall motion LVH, moderate/ severe biatrial enlargement, moderate MR/TR, mild -CXR: * Mild pulmonary vascular congestion, large RIGHT pleural effusion with probably underlying infiltrates and/or atelectasis. Follow-up chest PA and lateral recommended when patient's condition permits. Assessment 82-year-old woman with multiple medical problems significant for HFpEF, A. fib, and B-cell lymphoma in [place] seen for evaluation of shortness of breath, weakness, and hypoxia. Patient admits to feeling fatigued and otherwise denies any symptoms including current shortness of breath. Vitals are significant for elevated heart rate up to 140s and low normal spO2 on room air. Physical exam demonstrated diminished right lung sounds with bilateral scattered scant crackles (Right > Left). Significant labs include WBC 15.3, K 3.2, Ca 6.9, albumin 2.4, Mg 1.0, BNP 6K, troponin I 0.03, and INR 4.39. CXR demonstrates a large right sided pleural effusion with pulmonary vascular congestion. Clinically patient appears to have a mild acute on chronic HFpEF exacerbation with third spacing of fluid resulting in a large right sided pleural effusion and subjective dyspnea and reported hypoxia; she has flat neck veins with trace lower extremity edema. She has a supratherapeutic INR despite reports from the ECF that coumadin was being held in anticipation for a peripheral angioplasty on 12/19/17; which will now have to be deferred. Patient is in no acute respiratory distress and does not urgently need reversal of her INR for a thoracentesis; however will be kept NPO should her condition decline. Patient is being admitted to the telemetry floor for telemetry monitoring, intravenous diuresis, electrolyte repletion, INR monitoring, rate control if needed, and possible thoracentesis. She may require a cardiology evaluation. Problem list -Acute on Chronic HFpEF -Large right sided pleural effusion -Atrial fibrillation with rapid ventricular response -Possible pulmonary infiltrate, unlikely pneumonia -Supratherapeutic INR -Hypomagnesenemia -Dementia -History of Atrial fibrillation, on Coumadin -Bioprosthetic aortic valve -History of B-cell lymphoma, "in remission" -History of DVT -History of lupus anticoagulant -Thalassemia -Iron Deficiency Anemia -Osteoporosis -GERD Plan -Admit to telemetry -Telemetry monitoring -Strict ins and outs, daily weights -Whitaker catheter -Total respiratory care -Supplemental oxygen, goal >92%, taper as tolerated -No antibiotics for now -Lasix 40 mg IV Daily, titrate to net negative 1 liter per day -Hold coumadin and oral lasix -Continue home meds: Calcitriol, iron, fluoxetine, folic acid, PPO, magnesium, metoprolol, KCl, tramadol -Daily INR -Consider right sided diagnostic/therapeutic thoracentesis -Monitor BMP, Mg; replete as needed -Pain control with acetaminophen -NPO for possible thoracentesis -DVT PPx with supratherapeutic INR, ALPS -DNR paper on chart
--- NOTE | 2017-12-18 12:52 | PN- Att Addend ---
Attending Addendum Attending Brief Note Patient seen and examined. She is an 82-year-old female with a past medical history of atrial fibrillation on Coumadin, heart failure with preserved ejection fraction, previous B-cell lymphoma who [facility] for acute hypoxemic respiratory failure as evidenced by a sat of 82% on room air. When she came in she was short of breath and had an elevated BNP with a chest x-ray that showed a large right-sided effusion. We are treating her empirically for CHF and IV Lasix. Of note she did have a white count of 15,000 that's down to 11,000 and we can't tell if she has a pneumonia behind the chest x-ray. We'll get a noncontrast chest CT, I have asked Dr. Zach Marquis to see her, will also get a formal vascular surgery while she was due for lower extremity angioplasty tomorrow. We'll follow-up on her potassium and follow-up on her INR.
[2017-12-18 13:06] LABS: PT 41.7 SEC (9.4-12.5)
--- NOTE | 2017-12-18 13:18 | Cons- Cardiology ---
General Information and HPI Consulting Request Date of Consult: 12/18/17 Requested By: Melinda Stapleton MD Reason for Consult: Recurrent congestive heart failure in an elderly woman with previous CHF and chronic atrial fibrillation Source of Information: patient, old records Exam Limitations: no limitations History of Present Illness: Geena Lujan is an 82-year-old female who has chronic atrial fibrillation, previous bioprosthetic aortic valve replacement. She has been hospitalized a couple times at [place] in April 2017 and again in July 2017, both times with respiratory issues of pneumonia and congestive heart failure. I last saw her in the office after her first hospitalization in April 2017. Subsequently as noted she was hospitalized in July but I did not see her in follow-up after that. Her last echo in July 2017 showed ejection fraction greater than 60%, dilated atria, mitral valve thickening with moderate MR and a mild gradient across the prosthetic valve. There was moderate tricuspid regurgitation but no pulmonary hypertension. The patient has been complaining of shortness of breath for 2 days and low oxygen saturations and was brought to the emergency department where she was found to have a high BNP and a large right pleural effusion. Also her INR was supratherapeutic as she is on Coumadin. Her home medications from a cardiac standpoint include Lasix 20 mg daily, metoprolol 25 mg twice daily and warfarin. Allergies/Medications Allergies: Coded Allergies: clarithromycin (From BIAXIN) (Severe, DIARRHEA 02/23/17) lactose (UNKNOWN 07/24/17) Home Med List: Acetaminophen (Mapap) 500 MG CAPSULE 1 CAP PO BID PRN PAIN (Reported) Calcitriol 0.5 MCG CAPSULE 1 CAP PO DAILY SUPPLEMENT (Reported) Ferrous Sulfate (IRON) 325 MG (65 MG IRON) TABLET 1 TAB PO AD SUPPLEMENT ( Reported) Fluoxetine HCl 20 MG CAPSULE 1 CAP PO DAILY MENTAL HEALTH (Reported) Folic Acid 1 MG TABLET 1 TAB PO DAILY SUPPLEMENT (Reported) Furosemide (Lasix) 20 MG TABLET 1 TAB PO DAILY DIURETIC (Reported) Lansoprazole 30 MG CAPSULE.DR 1 CAP PO DAILY GI (Reported) Magnesium Oxide (Magnesium) 400 MG TABLET 1 TAB PO DAILY SUPPLEMENT (Reported ) Metoprolol Tartrate 25 MG TABLET 1 TAB PO BID HEART/BP (Reported) Morphine Sulfate 20 MG/ML SYRINGE 0.125 ML SL Q2H DYSPNEA (Reported) Potassium Chloride 10 MEQ CAPSULE.ER 1 CAP PO DAILY SUPPLEMENT (Reported) Tramadol HCl 50 MG TABLET 1 TAB PO Q4H PRN PAIN (Reported) Warfarin Sodium (Coumadin) 2 MG TABLET 1 TAB PO MONTHRUFRI BLOOD THINNER ( Reported) Warfarin Sodium (Coumadin) 1 MG TABLET 1 TAB PO SATSUN BLOOD THINNER ( Reported) Current Medications: Current Medications Sig/Eulalia Start time Last Medication Dose Route Stop Time Status Admin Acetaminophen 650 MG Q6P PRN 12/18 0445 AC PO Acetaminophen 650 MG Q6P PRN 12/18 0400 DC PO Calcitriol 0.5 MCG DAILY 12/18 09 DC PO Calcitriol 0.5 MCG DAILY 12/18 09 AC PO Diltiazem HCl 0 .STK-MED ONE 12/18 0034 DC .ROUTE Diltiazem HCl 5 MG ONCE ONE 12/17 2299 DC 12/18 IV PUSH 12/17 2300 0047 Ferrous Sulfate 325 MG DAILY 12/18 09 DC PO Ferrous Sulfate 325 MG DAILY 12/18 0900 AC PO Fluoxetine HCl 20 MG DAILY 12/18 09 DC PO Fluoxetine HCl 20 MG DAILY 12/18 09 AC PO Folic Acid 1 MG DAILY 12/18 09 DC PO Folic Acid 1 MG DAILY 12/18 09 AC PO Furosemide 0 .STK-MED ONE 12/18 0409 DC IV Furosemide 40 MG DAILY 12/18 0400 AC 12/18 IV 0434 Furosemide 0 .STK-MED ONE 12/18 2111 DC IV Furosemide 40 MG ONCE ONE 12/18 1999 DC 12/17 IV 12/17 Magnesium Oxide 400 MG DAILY 12/18 09 DC PO Magnesium Oxide 400 MG DAILY 12/18 0900 AC 12/18 PO 1024 Magnesium Oxide 400 MG ONE ONE 12/18 0400 DC 12/18 PO 12/18 0401 0434 Metoprolol Tartrate 25 MG BID 12/18 09 DC PO Metoprolol Tartrate 25 MG BID 12/18 0900 AC PO Omeprazole 40 MG DAILY AC 12/18 0700 DC PO Omeprazole 40 MG DAILY AC 12/18 0700 AC PO Potassium Chloride 10 MEQ DAILY 12/18 0900 DC PO Potassium Chloride 10 MEQ DAILY 12/18 0900 AC 12/18 PO 1024 Potassium Chloride 0 .STK-MED ONE 12/17 2345 DC PO Potassium Chloride 40 MEQ ONCE ONE 12/17 2315 DC 12/18 PO 12/17 2316 0027 Tramadol HCl 50 MG Q4H PRN 12/18 0445 AC PO Tramadol HCl 50 MG Q4H PRN 12/18 0400 DC PO Tramadol HCl 50 MG ONCE ONE 12/17 2229 DC 12/17 PO 12/17 Tramadol HCl 0 .STK-MED ONE 12/17 2222 DC PO Review of Systems Review of Systems: She has no other complaints at this time Past History Travel History Traveled to [place] past 21 day No Medical History Neurological: dementia EENT: NONE Cardiovascular: AFIB, CHF, VALVE REPLACEMENT BRADYCARDIA/TACHYCARDIA Respiratory: NONE Gastrointestinal: GERD Hepatic: NONE Renal: NONE Musculoskeletal: NONE Psychiatric: NONE Endocrine: NONE Blood Disorders: anemia 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 MOTHER, ; Cause: Pancreatic cancer. Psychosocial History Smoking Status: Never Smoked ETOH Use: denies use Illicit Drug Use: denies illicit drug use Employment History Employment: Retired Exam & Diagnostic Data Vital Signs and I&O Vital Signs Date Time Temp Pulse Resp B/P B/P Pulse O2 O2 Flow FiO2 Mean Ox Delivery Rate 12/18 0805 97.4 12/18 0613 98.0 112 16 107/71 98 Nasal 2.0L Cannula 12/18 0525 97 Nasal 2.0L Cannula 12/18 0434 116 113/68 12/18 0047 142 122/68 12/18 0047 142 122/68 12/17 2251 97.5 114 16 128/75 100 Nasal 3.0L Cannula 12/17 2133 97.6 116 16 102/79 100 Nasal 2.0L Cannula 12/17 2132 96 Nasal 3.0L Cannula 12/17 1925 97.8 86 16 107/75 94 Nasal 2.0L Cannula Intake & Output 12/18 1600 12/18 0800 12/18 0000 12/17 1600 12/17 0812/17 0000 Intake Total 240 90 Output Total 800 Balance -560 90 Intake, IV 0 Intake, Oral 240 90 Output, Urine 800 Patient 103 lb Weight Weight Estimated Measurement Method Physical Exam: Thin elderly female lying in bed in no acute distress HEENT exam normal Neck veins not distended Carotids normal Chest decreased breath sounds in the right posterior chest with a few rhonchi, otherwise clear Heart moderate rate irregularly irregular rhythm with no murmurs Extremities no edema Labs/Merrill Results: Laboratory Tests 12/18 12/18 1230 0517 Chemistry Sodium (137 - 145 mmol/L) 139 Potassium (3.5 - 5.1 mmol/L) 4.4 Chloride (98 - 107 mmol/L) 102 Carbon Dioxide (22 - 30 mmol/L) 24 Anion Gap (5 - 16) 12 BUN (7 - 17 mg/dL) 47 H Creatinine (0.5 - 1.0 mg/dL) 0.8 Estimated GFR (>60 ml/min) > 60 BUN/Creatinine Ratio (7 - 25 %) 58.8 H Magnesium (1.6 - 2.3 mg/dL) 1.3 L Coagulation PT (9.4 - 12.5 SEC) 41.7 H INR (0.90 - 1.19) 3.77 H Hematology CBC w Diff NO MAN DIFF REQ WBC (4.8 - 10.8 /CUMM) 11.3 H RBC (4.20 - 5.40 /CUMM) 3.90 L Hgb (12.0 - 16.0 G/DL) 12.4 Hct (37 - 47 %) 37.0 MCV (81.0 - 99.0 FL) 94.9 MCH (27.0 - 31.0 PG) 31.8 H MCHC (33.0 - 37.0 G/DL) 33.5 RDW (11.5 - 14.5 %) 16.8 H Plt Count (130 - 400 /CUMM) 117 L MPV (7.4 - 10.4 FL) 9.1 Gran % (42.2 - 75.2 %) 73.4 Lymphocytes % (20.5 - 51.1 %) 15.7 L Monocytes % (1.7 - 9.3 %) 9.3 Eosinophils % (0 - 5 %) 0.1 Basophils % (0.0 - 2.0 %) 1.5 Absolute Granulocytes (1.4 - 6.5 /CUMM) 8.3 H Absolute Lymphocytes (1.2 - 3.4 /CUMM) 1.8 Absolute Monocytes (0.10 - 0.60 /CUMM) 1.0 H Absolute Eosinophils (0.0 - 0.7 /CUMM) 0 Absolute Basophils (0.0 - 0.2 /CUMM) 0.2 12/18 12/17 0333 2240 Coagulation PT (9.4 - 12.5 SEC) 48.6 *H INR (0.90 - 1.19) 4.39 *H Urines Urine Color (YEL,AMB,STR) YEL Urine Clarity (CLEAR) CLEAR Urine pH (5.0 - 8.0) 6.0 Ur Specific [place] (1.001 - 1.035) 1.015 Urine Protein (NEG,<30 MG/DL) NEG Urine Ketones (NEG) NEG Urine Nitrite (NEG) NEG Urine Bilirubin (NEG) NEG Urine Urobilinogen (0.1 - 1.0 EU/dl) 0.2 Ur Leukocyte Esterase (NEG) NEG Ur Microscopic EXAM NOT REQUIRED Urine Hemoglobin (NEG) NEG Urine Glucose (N MG/DL) NEG 12/17 2108 Chemistry Sodium (137 - 145 mmol/L) 138 Potassium (3.5 - 5.1 mmol/L) 3.2 L Chloride (98 - 107 mmol/L) 109 H Carbon Dioxide (22 - 30 mmol/L) 19 L Anion Gap (5 - 16) 10 BUN (7 - 17 mg/dL) 40 H Creatinine (0.5 - 1.0 mg/dL) 0.7 Estimated GFR (>60 ml/min) > 60 BUN/Creatinine Ratio (7 - 25 %) 57.1 H Glucose (65 - 99 mg/dL) 78 Calcium (8.4 - 10.2 mg/dL) 6.9 L Magnesium (1.6 - 2.3 mg/dL) 1.0 L Total Bilirubin (0.2 - 1.3 mg/dL) 0.7 AST (14 - 36 U/L) 21 ALT (9 - 52 U/L) 29 Alkaline Phosphatase (<127 U/L) 70 Troponin I (< 0.11 ng/ml) 0.03 [id number] Pept (<125 pg/mL) 6060 H Total Protein (6.3 - 8.2 g/dL) 4.9 L Albumin (3.5 - 5.0 g/dL) 2.4 L Globulin (1.9 - 4.2 gm/dL) 2.5 Albumin/Globulin Ratio (1.1 - 2.2 %) 1.0 L Hematology CBC w Diff NO MAN DIFF REQ WBC (4.8 - 10.8 /CUMM) 15.3 H RBC (4.20 - 5.40 /CUMM) 4.05 L Hgb (12.0 - 16.0 G/DL) 12.6 Hct (37 - 47 %) 38.5 MCV (81.0 - 99.0 FL) 95.0 MCH (27.0 - 31.0 PG) 31.1 H MCHC (33.0 - 37.0 G/DL) 32.7 L RDW (11.5 - 14.5 %) 17.3 H Plt Count (130 - 400 /CUMM) 170 MPV (7.4 - 10.4 FL) 8.7 Gran % (42.2 - 75.2 %) 80.4 H Lymphocytes % (20.5 - 51.1 %) 12.4 L Monocytes % (1.7 - 9.3 %) 7.0 Eosinophils % (0 - 5 %) 0 Basophils % (0.0 - 2.0 %) 0.2 Absolute Granulocytes (1.4 - 6.5 /CUMM) 12.3 H Absolute Lymphocytes (1.2 - 3.4 /CUMM) 1.9 Absolute Monocytes (0.10 - 0.60 /CUMM) 1.1 H Absolute Eosinophils (0.0 - 0.7 /CUMM) 0 Absolute Basophils (0.0 - 0.2 /CUMM) 0 Diagnostic Data EKG Results Atrial fibrillation rate 112, left axis deviation, poor R-wave progression, nonspecific ST and T-wave abnormalities. CXR Results PATIENT: GEENA LUJAN PRESENT AGE: 82 PATIENT ACCOUNT NO: [id number] : 34 LOCATION: [facility] ORDERING PHYSICIAN: Damon CARRILLO SERVICE DATE: 12/17/17 EXAM TYPE: RAD - XRY-PORTABLE CHEST XRAY EXAMINATION: XR PORTABLE CHEST CLINICAL INFORMATION: Shortness of breath COMPARISON: July 2017 TECHNIQUE: Portable frontal view of the chest was obtained. FINDINGS: Newly developed opacification over the RIGHT lung likely large pleural effusion with probably underlying infiltrates and/or atelectasis. There is mild vascular congestion. IMPRESSION: Mild pulmonary vascular congestion, large RIGHT pleural effusion with probably underlying infiltrates and/or atelectasis. Follow-up chest PA and lateral recommended when patient's condition permits. DICTATED BY: Ally Tejada MD DATE/TIME DICTATED:12/17/172031 [employer]SEM[employer]:PRAFUL DATE/TIME TRANSCRIBED:12/17/172031 CONFIDENTIAL, DO NOT COPY WITHOUT APPROPRIATE AUTHORIZATION. <Electronically signed in Other Vendor System> SIGNED BY: Mallory MCKEON,Hadeer 2036 Assessment/Plan Assessment/Plan Geena Lujan is an 82-year-old female with recurrent congestive heart failure. She now presents with a large right pleural effusion, hypoxia and symptoms of shortness of breath. She has an elevated BNP. It is not certain that this is due to congestive heart failure. It may be a pulmonary process associated with right pleural effusion. However she has in atrial fibrillation and her rate is somewhat elevated at this time. I would consider increasing her metoprolol to 50 mg twice daily and using supplemental Cardizem as needed for better rate control. I would continue to hold her warfarin and consider a thoracentesis when her INR is below 2. I would give her at least 1 additional dose of Lasix but watch her BUN closely. I do not think she needs a follow-up echo at this time. Consult Acknowledgment - Thank you for your consult request.
--- NOTE | 2017-12-18 13:52 | CT SCAN REPORT ---
EXAMINATION: CT CHEST WITHOUT CONTRAST CLINICAL INFORMATION: 82-year-old female with tachycardia, leukocytosis and hypoxia. Evaluate for pneumonia and pleural effusion. COMPARISON: CXR from 07/31/2017 and 12/17/2017. Chest CT from 05/04/2017. TECHNIQUE: Multidetector volumetric CT imaging of the chest was done. Axial MIP volume rendering provided. Sagittal and coronal reformatted images were obtained. DLP: 155 mGy-cm FINDINGS: LUNGS AND PLEURA: There is wall calcification of the tracheobronchial tree - a relatively common finding in elderly patients. Lungs have mosaic attenuation, and patchy groundglass opacity within the right upper lobe and left lower lobe. Atelectasis within the dependent aspect of the right upper lobe. [id number] right pleural effusion associated with persistent partial collapse and/or consolidation of the right lower lobe. The mucus plugging of the bronchus intermedius and right lower lobe bronchus seen on 05/04/2017 has resolved. There is wall thickening of bronchi in the lower lobes. The previously noted mucus plugging of left lower lobe bronchi has resolved. MEDIASTINUM: Aortic valve is replaced and mitral valve is calcified. Atherosclerotic calcification of the thoracic aorta without aneurysm. Cardiomegaly. Atherosclerotic calcification of left anterior descending coronary artery. No pericardial effusion. Pulmonary arteries are mildly enlarged with pulmonary artery trunk measuring 3.2 cm transverse diameter. Esophagus has normal wall thickness. Thyroid gland is grossly unremarkable. LYMPHATICS: No axillary or internal mammary lymphadenopathy. No pathologic sized hilar or mediastinal lymph nodes. UPPER ABDOMEN: No acute findings. Atherosclerosis of the thoracic aorta and splenic artery. Small, 0.6 cm hyperdense cyst at the lateral aspect of the upper pole of the right kidney. A cyst of the upper pole of the right kidney measures approximately 5.5 cm transverse, 6.4 cm AP. The lateral cyst wall is partially calcified. A prominent left extrarenal pelvis is noted. SKELETAL AND CHEST WALL: Bones are osteoporotic. There is a recent, mildly displaced fracture of the medial right clavicle -- new compared to 05/04/2017. Chondrocalcinosis of sternoclavicular joints and spine. Chronic height loss of multiple thoracic vertebra. No acute fractures within the degenerated, hyperkyphotic thoracic spine. The sternotomy is healed. IMPRESSION: 1. Persistent consolidation and/or atelectasis in the right lower lobe with [id number] sized right pleural effusion. Compressive atelectasis is present in the dependent aspect of the right upper lobe. The bronchial wall thickening, most pronounced in lower lobes, could be a manifestation of inflammation or infection of the airways. Previously noted mucus plugging of bilateral lower lobe bronchi has significantly improved and/or resolved compared to 05/04/2017. 2. Cardiomegaly without convincing findings for acute pulmonary edema. 3. Osteoporosis. Again noted are multiple old thoracic vertebral compression fractures. In addition, there is a recent, mildly displaced fracture of the medial right clavicle.
[2017-12-18 17:36] VITALS: BP 94/64
[2017-12-18 22:11] VITALS: BP 90/60
[2017-12-19 02:54] VITALS: BP 87/55
[2017-12-19 06:46] VITALS: BP 87/53
[2017-12-19 07:52] LABS: ABSOLUTE BASOPHIL COUNT 0 /CUMM (0.0-0.2); ABSOLUTE EOSINOPHIL COUNT 0 /CUMM (0.0-0.7); ABSOLUTE MONOCYTE COUNT 0.4 /CUMM (0.10-0.60); EOSINOPHIL % 0.1 % (0-5); MEAN CORPUSCULAR HGB 31.3 PG (27.0-31.0); MEAN CORPUSCULAR HGB CONC 32.7 G/DL (33.0-37.0); MEAN PLATELET VOLUME 8.9 FL (7.4-10.4)
--- NOTE | 2017-12-19 08:05 | PN- Housestaff ---
Angela MCKEON,Stephanie 12/19/17 0804: Subjective Follow-up For: CHF exacerbation Pleural effusion A. fib on Coumadin with supratherapeutic INR Tele-Events Since Last Visit: No events Subjective: Patient seen and examined. She is alert and oriented 3 but says that she at times feels "confused" about what time of the date is. The patient otherwise has no complaints. Overnight she was hypotensive to 87/55 and she is currently on 2 L of oxygen saturating at 95%. At home she takes oxygen only as needed but does have it available. She notes that she feels constipated. Review of Systems Constitutional: Reports: no symptoms. Cardiovascular: Reports: no symptoms. Respiratory: Reports: no symptoms. Gastrointestinal: Reports: constipation. Genitourinary: Reports: no symptoms. Musculoskeletal: Reports: no symptoms. Skin: Reports: change in skin color. Neurological/Psychological: Reports: confusion. Objective Last 24 Hrs of Vital Signs/I&O Vital Signs Date Time Temp Pulse Resp B/P B/P Pulse O2 O2 Flow FiO2 Mean Ox Delivery Rate 12/19 1100 104 88/56 12/19 0908 97.2 86 16 87/53 12/19 0646 97.2 86 16 87/53 91 12/19 0254 88 22 87/55 95 Nasal 2.0L Cannula 12/19 0000 95 Nasal 2.0L Cannula 12/18 2211 98.6 87 18 90/60 88 12/18 1755 157 94/64 12/18 1736 97.6 140 20 94/64 90 12/18 1556 97.6 97 26 110/67 94 Nasal 2.0L Cannula 12/18 1444 97.4 112 16 107/71 Intake & Output 12/19 1600 12/19 0800 12/19 0000 Intake Total 150 Output Total 700 1000 Balance -550 -1000 Intake, Oral 150 Number 0 Bowel Movements Output, Urine 700 1000 Patient 116 lb Weight Physical Exam General Appearance: Alert, Oriented X3, Cooperative, No Acute Distress Skin: No Rashes, patient continues to have cyanotic appearing finger tips when she is cold. Skin Temp/Moisture Exam: Warm/Dry Sepsis Skin Exam (color): Normal for Ethnicity HEENT: Atraumatic, EOMI, Mucous Membr. moist/pink Cardiovascular: Regular Rate, Normal S1, Normal S2 Lungs: right distant heart sounds Abdomen: Normal Bowel Sounds, Soft Neurological: Normal Speech Extremities: No Clubbing, No Cyanosis, No Edema Current Medications: Current Medications Sig/Eulalia Start time Last Medication Dose Route Stop Time Status Admin Acetaminophen 650 MG Q6P PRN 12/18 0445 AC PO Calcitriol 0.5 MCG DAILY 12/18 0900 AC 12/19 PO 0910 Ferrous Sulfate 325 MG DAILY 12/18 0900 AC 12/19 PO 0908 Fluoxetine HCl 20 MG DAILY 12/18 09 AC 12/19 PO 0908 Folic Acid 1 MG DAILY 12/18 09 AC 12/19 PO 0908 Furosemide 0 .STK-MED ONE 12/18 1608 DC IV Furosemide 40 MG ONCE ONE 12/18 1600 DC 12/18 IV 12/18 1601 1616 Furosemide 40 MG DAILY 12/18 0400 DC 12/19 IV 0911 Magnesium Oxide 400 MG DAILY 12/18 0900 AC 12/19 PO 0908 Metoprolol Tartrate 50 MG BID 12/18 2100 AC 12/19 PO 1100 Metoprolol Tartrate 25 MG BID 12/18 0900 DC PO Omeprazole 40 MG DAILY AC 12/18 0700 AC 12/19 PO 0546 Polyethylene Glycol 17 GM DAILY 12/19 1117 AC 12/19 PO 1217 Potassium Chloride 10 MEQ DAILY 12/18 09 AC 12/19 PO 0910 Senna/Docusate Sodium 1 TAB BID PRN 12/19 1130 AC PO Tramadol HCl 0 .STK-MED ONE 12/18 1525 DC PO Tramadol HCl 50 MG Q4H PRN 12/18 0445 AC 12/19 PO 0550 Last 24 Hrs of Lab/Merrill Results Last 24 Hrs of Labs/Mics: Laboratory Tests 12/19/17 0700: Anion Gap 10, Estimated GFR > 60, BUN/Creatinine Ratio 60.0 H, PT 31.2 H, INR 2.83 H, CBC w Diff NO MAN DIFF REQ, RBC 3.31 L, MCV 95.5, MCH 31.3 H, MCHC 32.7 L, RDW 18.1 H, MPV 8.9, Gran % 76.3 H, Lymphocytes % 16.8 L, Monocytes % 6.7, Eosinophils % 0.1, Basophils % 0.1, Absolute Granulocytes 4.8, Absolute Lymphocytes 1.1 L, Absolute Monocytes 0.4, Absolute Eosinophils 0, Absolute Basophils 0 Assessment/Plan Assessment: 82-year-old with past medical history of HFpEF (LVEF >60%), B-cell lymphoma, atrial fibrillation on Coumadin, bioprosthetic AVR, DVT, lupus anticoagulant, thalassemia, iron deficiency anemia, GERD, and dementia brought in by ambulance from [facility] for evaluation of shortness of breath, weakness and hypoxia. Patient was previously admitted to [facility] from 07/24/17-08/01/17 for evaluation of weakness, shortness breath, and lower extremity swelling with weight gain and treated for acute decompensated CHF exacerbation, UTI, and digoxin toxicity. She was diuresed, treated with antibiotics, and discontinued from digoxin uptitrated on her beta-shon discharged back to her ECF. Patient is a poor historian and does not return specific details of the day. Collateral information obtained from the F paperwork / W10. Patient was reportedly seen to have increased work of breathing for which an SpO2 was taken that was apparently in the 80's for which she was placed on oxygen and sent to the [place] ED. Review of systems She otherwise denies any fever, chills, blurred/double vision, chest pain, palpitations, heartburn, current shortness of breath, abdominal pain, constipation, or urinary symptoms. Objective Vitals: Temp 97.5-97.8, HR 86-142, RR 16, BP 102-120/68-79, SPO2 94-100% on 3.0L Physical exam -General: elderly woman in no acute distress -HEENT: NCAT, PERRL, EOMI, anicteric sclera -Neck: Supple, no JVP, trachea midline, no accessory respiratory muscle use -Cardio: irregularly irregular; rate normal -Pulmonary: Diminished right sided airflow with bilateral crackles -Abdomen: Soft, NT, ND, BS+ -Neuro: Awake and alert, CN II-XII grossly intact -Extremities: trace bilateral lower extremity nonpitting edema, normal pulses Labs/imaging/studies -CBC: WBC 15.3, hemoglobin 12.6, hematocrit 30.5, platelet 170 -BMP: Sodium 138, potassium 3.2, chloride 109, CO2 19, BUN 40, creatinine 0.7, anion gap 10, glucose 78 -LFT: Within normal limits -Miscellaneous: Calcium 6.9, magnesium 1.0, albumin 2.4, BNP 6060, troponin I 0.03 -EKG: Afib with RVR, Left axis deviation, poor r-wave progression, old anterior/ inferior NE -Echocardiogram 07/26/17: LVEF >60% without regional wall motion LVH, moderate/ severe biatrial enlargement, moderate MR/TR, mild -CXR: * Mild pulmonary vascular congestion, large RIGHT pleural effusion with probably underlying infiltrates and/or atelectasis. Follow-up chest PA and lateral recommended when patient's condition permits. Assessment 82-year-old woman with multiple medical problems significant for HFpEF, A. fib, and B-cell lymphoma in remis seen for evaluation of shortness of breath, weakness, and hypoxia. Patient admits to feeling fatigued and otherwise denies any symptoms including current shortness of breath. Vitals are significant for elevated heart rate up to 140s and low normal spO2 on room air CURRENTLY ON 2L. Physical exam demonstrated diminished right lung sounds with bilateral scattered scant crackles (Right > Left). Significant labs include WBC 15.3, K 3.2, Ca 6.9, albumin 2.4, Mg 1.0, BNP 6K, troponin I 0.03, and INR 4.39. CXR demonstrates a large right sided pleural effusion with pulmonary vascular congestion. Problem list -HYPOXIA secondary to acute on Chronic HFpEF and pulmonary infiltrate -Large right sided pleural effusion -Atrial fibrillation with rapid ventricular response -Peripheral vascular disease -Supratherapeutic INR -Hypomagnesenemia -Dementia -History of Atrial fibrillation, on Coumadin -Bioprosthetic aortic valve -History of B-cell lymphoma, "in remission" -History of DVT -History of lupus anticoagulant -Thalassemia -Iron Deficiency Anemia -Osteoporosis -GERD Plan -Continue to monitor patient in telemetry -Strict ins and outs, daily weights -Continue Whitaker catheter for monitoring I's and O's. -As per cardiology we will hold Lasix. Of note she was given her daily 40 mg IV Lasix dose before cardiology note stating to stop it. At this point we had stopped it and will consider new suggestions tomorrow. -Total respiratory care -We evaluated patient's pulmonary effusion with CT chest which showed persistent consolidation and/or atelectasis in the right lower lobe with small to moderate sized right pleural effusion and bronchial wall thickening in the lower lobes which could be a manifestation of inflammation or infection of the airways. As such and because there is no definite evidence of infection at this time, we will hold antibiotics. Of note, patient did have a white cell count and tachycardia on admission but now has a normal white cell count and has a heart rate in the high 80s. -Patient's last INR was 2.83. We will recheck INR at 6 PM and if it is below 2 we will schedule the patient for thoracentesis tomorrow. However if her INR is above 2 we will reverse with 5 mg p.o. of vitamin K. -Supplemental oxygen, goal >92%, taper as tolerated -Patient has had hypertension over today and a high heart rate and as per cardiology we will continue the beta-shon. -Contact the patient's son for discussion on next steps -Senna S and MiraLAX for constipation -PT eval -Continue home meds: Calcitriol, iron, fluoxetine, folic acid, PPO, magnesium, metoprolol, KCl, tramadol -Pain control with acetaminophen -DVT PPx with supratherapeutic INR, ALPS -DNR paper on chart Problem List: 1. CHF exacerbation Pain Ratin Pain Location: na Pain Goal: Remain pain free Pain Plan: na Tomorrow's Labs & Rationales: raquel Santos MD,Melinda 12/19/17 1138: Attending MD Review Statement Attending Statement Attending MD Statement: examined this patient, discuss w/resident/PA/POLITICAL SCIENCE FACULTY MEMBER, agreed w/resident/PA/POLITICAL SCIENCE FACULTY MEMBER, reviewed EMR data (avail), discussed with nursing, discussed with case mgmt, reviewed images Attending Assessment/Plan: Patient's blood pressure continues to be on the low side and heart rate continues to be on the high side. She got an extra dose of Lasix yesterday and a higher dose of metoprolol as recommended by cardiology. Will Cortes MD feels that she may need a thoracentesis. Will repeat her INR later today and if it still over 2 we will give her 1 dose of p.o. vitamin K. We will continue the IV Lasix, start her on senna, Colace and MiraLAX for constipation and follow-up with tomorrow's chest x-ray.
[2017-12-19 08:10] LABS: ABSOLUTE GRANULOCYTE CT 4.8 /CUMM (1.4-6.5); ABSOLUTE LYMPH COUNT 1.1 /CUMM (1.2-3.4); BASOPHIL % 0.1 % (0.0-2.0); GRANULOCYTE % 76.3 % (42.2-75.2); MEAN CORPUSCULAR VOLUME 95.5 FL (81.0-99.0); PLATELET COUNT 133 /CUMM (130-400); RBC DISTRIBUTION WIDTH 18.1 % (11.5-14.5); RED BLOOD CELL CT 3.31 /CUMM (4.20-5.40); WHITE BLOOD CELL COUNT 6.3 /CUMM (4.8-10.8)
[2017-12-19 08:12] LABS: PT 31.2 SEC (9.4-12.5)
[2017-12-19 08:13] LABS: HEMATOCRIT 31.6 % (37-47)
--- NOTE | 2017-12-19 09:55 | PN- Cardiology ---
Subjective Subjective: Patient states that her breathing is is better but not quite normal. She has no chest pain. Her blood pressure is trending a little low. Her heart rate is variable occasionally high. She is now on metoprolol 50 mg twice daily and Lasix 40 mg once daily. Her INR is lower but still in the therapeutic range at 2.83. Objective Vital Signs and I&Os Vital Signs Date Time Temp Pulse Resp B/P B/P Pulse O2 O2 Flow FiO2 Mean Ox Delivery Rate 12/19 0908 97.2 86 16 87/53 12/19 0646 97.2 86 16 87/53 91 12/19 0254 88 22 87/55 95 Nasal 2.0L Cannula 12/19 0000 95 Nasal 2.0L Cannula 12/18 2211 98.6 87 18 90/60 88 12/18 1755 157 94/64 12/18 1736 97.6 140 20 94/64 90 12/18 1556 97.6 97 26 110/67 94 Nasal 2.0L Cannula 12/18 1444 97.4 112 16 107/71 Intake & Output 12/19 1600 12/19 0800 12/19 0000 12/18 1600 12/18 0800 12/18 0000 Intake Total 150 240 90 Output Total 700 1000 900 800 Balance -550 -1000 -900 -560 90 Intake, IV 0 Intake, Oral 150 240 90 Number 0 Bowel Movements Output, Urine 700 1000 900 800 Patient 116 lb 103 lb Weight Weight Estimated Measurement Method Physical Exam: She is in no distress HEENT exam is normal Neck veins not distended Chest reveals decreased breath sounds on the right, there are coarse rales in that area. Heart irregular rhythm Extremities trace edema Current Medications: Current Medications Sig/Eulalia Start time Last Medication Dose Route Stop Time Status Admin Acetaminophen 650 MG Q6P PRN 12/18 0445 AC PO Calcitriol 0.5 MCG DAILY 12/18 899 AC 12/19 PO 0910 Ferrous Sulfate 325 MG DAILY 12/18 899 AC 12/19 PO 0908 Fluoxetine HCl 20 MG DAILY 12/18 899 AC 12/19 PO 0908 Folic Acid 1 MG DAILY 12/18 899 AC 12/19 PO 0908 Furosemide 0 .STK-MED ONE 12/18 1608 DC IV Furosemide 40 MG ONCE ONE 12/18 1600 DC 12/18 IV 12/18 1601 1616 Furosemide 40 MG DAILY 12/18 0400 AC 12/19 IV 0911 Magnesium Oxide 400 MG DAILY 12/18 0900 AC 12/19 PO 0908 Metoprolol Tartrate 50 MG BID 12/18 2100 AC 12/18 PO 1755 Metoprolol Tartrate 25 MG BID 12/18 09 DC PO Omeprazole 40 MG DAILY AC 12/18 0700 AC 12/19 PO 0546 Potassium Chloride 10 MEQ DAILY 12/18 0900 AC 12/19 PO 0910 Tramadol HCl 0 .STK-MED ONE 12/18 1525 DC PO Tramadol HCl 50 MG Q4H PRN 12/18 0445 AC 12/19 PO 0550 Results Last 48 Hrs of Labs/Mics: Laboratory Tests 12/19/17 0700: Anion Gap 10, Estimated GFR > 60, BUN/Creatinine Ratio 60.0 H, PT 31.2 H, INR 2.83 H, CBC w Diff NO MAN DIFF REQ, RBC 3.31 L, MCV 95.5, MCH 31.3 H, MCHC 32.7 L, RDW 18.1 H, MPV 8.9, Gran % 76.3 H, Lymphocytes % 16.8 L, Monocytes % 6.7, Eosinophils % 0.1, Basophils % 0.1, Absolute Granulocytes 4.8, Absolute Lymphocytes 1.1 L, Absolute Monocytes 0.4, Absolute Eosinophils 0, Absolute Basophils 0 12/18/17 1230: Anion Gap 12, Estimated GFR > 60, BUN/Creatinine Ratio 58.8 H, Magnesium 1.3 L , PT 41.7 H, INR 3.77 H 12/18/17 0517: CBC w Diff NO MAN DIFF REQ, RBC 3.90 L, MCV 94.9, MCH 31.8 H, MCHC 33.5, RDW 16.8 H, MPV 9.1, Gran % 73.4, Lymphocytes % 15.7 L, Monocytes % 9.3, Eosinophils % 0.1, Basophils % 1.5, Absolute Granulocytes 8.3 H, Absolute Lymphocytes 1.8, Absolute Monocytes 1.0 H, Absolute Eosinophils 0, Absolute Basophils 0.2 12/18/17 0333: Urine Color YEL, Urine Clarity CLEAR, Urine pH 6.0, Ur Specific [place] 1.015, Urine Protein NEG, Urine Ketones NEG, Urine Nitrite NEG, Urine Bilirubin NEG, Urine Urobilinogen 0.2, Ur Leukocyte Esterase NEG, Ur Microscopic EXAM NOT REQUIRED, Urine Hemoglobin NEG, Urine Glucose NEG 12/17/170: PT 48.6 *H, INR 4.39 *H 12/17/179: Anion Gap 10, Estimated GFR > 60, BUN/Creatinine Ratio 57.1 H, Glucose 78, Calcium 6.9 L, Magnesium 1.0 L, Total Bilirubin 0.7, AST 21, ALT 29, Alkaline Phosphatase 70, Troponin I 0.03, Qrb-I-Zxuzkvripai Pept 6060 H, Total Protein 4.9 L, Albumin 2.4 L, Globulin 2.5, Albumin/Globulin Ratio 1.0 L, CBC w Diff NO MAN DIFF REQ, RBC 4.05 L, MCV 95.0, MCH 31.1 H, MCHC 32.7 L, RDW 17.3 H, MPV 8.7, Gran % 80.4 H, Lymphocytes % 12.4 L, Monocytes % 7.0, Eosinophils % 0 , Basophils % 0.2, Absolute Granulocytes 12.3 H, Absolute Lymphocytes 1.9, Absolute Monocytes 1.1 H, Absolute Eosinophils 0, Absolute Basophils 0 Assessment/Plan Assessment/Plan The patient seems improved. However her blood pressure is trending low. Her BUN is a little elevated, possibly she is a little volume depleted. I suggest holding Lasix. I recommend consideration for thoracentesis once her INR drops below 2. Continue telemetry? Yes
[2017-12-19 14:42] VITALS: BP 90/74
[2017-12-19 19:20] LABS: PT 27.6 SEC (9.4-12.5)
[2017-12-19 22:06] VITALS: BP 92/62
[2017-12-20 06:28] VITALS: BP 90/52
--- NOTE | 2017-12-20 07:39 | PN- Housestaff ---
Angela MCKEON,Stephanie 12/20/17 0739: Subjective Follow-up For: CHF exacerbation Pleural effusion Likely aspiration pneumonia A. fib on Coumadin with now subtherapeutic INR Subjective: Patient seen and examined. She states that she has no complaints. Her blood pressure overnight is 90/52 and she is on oxygen nasal cannula from 2-2.5 L. Overnight it was planned that she may have thoracentesis this morning so she was given a dose of vitamin K to reverse. However this morning after discussion with radiology, as they think that the etiology of the pleural effusion is most likely pneumonia and not large enough to tap, we will defer thoracentesis and she will be started again on her anticoagulant. Patient is net negative about 4 L and currently her Lasix is on hold. She is on ceftriaxone and doxycycline secondary to clarithromycin causing her diarrhea Review of Systems Constitutional: Reports: no symptoms. EENTM: Reports: no symptoms. Cardiovascular: Reports: no symptoms. Respiratory: Reports: no symptoms. Gastrointestinal: Reports: no symptoms. Genitourinary: Reports: no symptoms. Musculoskeletal: Reports: no symptoms. Skin: Reports: no symptoms. Neurological/Psychological: Reports: no symptoms. Objective Last 24 Hrs of Vital Signs/I&O Vital Signs Date Time Temp Pulse Resp B/P B/P Pulse O2 O2 Flow FiO2 Mean Ox Delivery Rate 12/20 1309 98 Nasal 2.0L Cannula 12/20 0826 77 102/60 12/20 08 98 Nasal 2.0L Cannula 12/20 0628 97.5 89 15 90/52 96 12/20 0000 Nasal 2.0L Cannula 12/19 2226 89 92/62 12/19 2206 98.4 95 15 92/62 88 12/19 1526 Nasal 2.5L Cannula 12/19 1442 97.6 84 18 90/74 92 Nasal 2.5L Cannula Intake & Output 12/20 1600 12/20 0812/20 0000 Intake Total Output Total 200 550 Balance -200 -550 Number 1 Bowel Movements Output, Urine 200 550 Patient 109 lb 107 lb Weight Physical Exam General Appearance: Alert, Cooperative, No Acute Distress Skin Temp/Moisture Exam: Warm/Dry HEENT: Atraumatic, PERRLA Cardiovascular: Regular Rate, Normal S1, Normal S2, No Murmurs Lungs: RIGHT SIDED DISTANT BREATH SOUNDS Abdomen: Normal Bowel Sounds, Soft, No Tenderness Neurological: Normal Speech Extremities: No Clubbing, No Cyanosis, No Edema Current Medications: Current Medications Sig/Eulalia Start time Last Medication Dose Route Stop Time Status Admin Acetaminophen 650 MG Q6P PRN 12/18 0445 AC PO Calcitriol 0.5 MCG DAILY 12/18 09 AC 12/20 PO 0826 Ceftriaxone Sodium 1,000 MG DAILY 12/20 0900 AC 12/20 IV 0825 Doxycycline Hyclate 100 MG BID 12/20 1010 AC PO Ferrous Sulfate 325 MG DAILY 12/18 09 AC 12/20 PO 0826 Fluoxetine HCl 20 MG DAILY 12/18 09 AC 12/20 PO 0826 Folic Acid 1 MG DAILY 12/18 09 AC 12/20 PO 0826 Furosemide 20 MG DAILY 12/21 899 AC PO Magnesium Oxide 400 MG DAILY 12/18 899 AC 12/20 PO 0825 Metoprolol Tartrate 50 MG BID 12/18 2100 AC 12/20 PO 0826 Omeprazole 40 MG DAILY AC 12/18 07 AC 12/20 PO 0624 Phytonadione 5 MG ONCE ONE 12/19 2030 DC 12/19 PO 12/19 2030 2226 Polyethylene Glycol 17 GM DAILY 12/19 1117 AC 12/20 PO 0825 Potassium Chloride 10 MEQ DAILY 12/18 09 AC 12/20 PO 0826 Senna/Docusate Sodium 1 TAB BID PRN 12/19 1130 AC 12/20 PO 0825 Tramadol HCl 50 MG Q4H PRN 12/18 0445 AC 12/19 PO 2227 Warfarin Sodium 3 MG COUMADIN 1700 ONE 12/20 1700 AC PO 12/20 170 Last 24 Hrs of Lab/Merrill Results Last 24 Hrs of Labs/Mics: Laboratory Tests 12/20/17 0641: Anion Gap 12, Estimated GFR > 60, BUN/Creatinine Ratio 55.0 H, PT 20.6 H, INR 1.88 H, CBC w Diff NO MAN DIFF REQ, RBC 3.58 L, MCV 95.7, MCH 31.6 H, MCHC 33.0, RDW 17.6 H, MPV 9.1, Gran % 74.2, Lymphocytes % 16.6 L, Monocytes % 8.6, Eosinophils % 0.3, Basophils % 0.3, Absolute Granulocytes 4.5, Absolute Lymphocytes 1.0 L, Absolute Monocytes 0.5, Absolute Eosinophils 0, Absolute Basophils 0 12/19/17 1755: PT 27.6 H, INR 2.51 H Assessment/Plan Assessment: 82-year-old with past medical history of HFpEF (LVEF >60%), B-cell lymphoma, atrial fibrillation on Coumadin, bioprosthetic AVR, DVT, lupus anticoagulant, thalassemia, iron deficiency anemia, GERD, and dementia brought in by ambulance from [facility] for evaluation of shortness of breath, weakness and hypoxia. Patient was previously admitted to [facility] from 07/24/17-08/01/17 for evaluation of weakness, shortness breath, and lower extremity swelling with weight gain and treated for acute decompensated CHF exacerbation, UTI, and digoxin toxicity. She was diuresed, treated with antibiotics, and discontinued from digoxin uptitrated on her beta-shon discharged back to her ECF. Patient is a poor historian and does not return specific details of the day. Collateral information obtained from the F paperwork / W10. Patient was reportedly seen to have increased work of breathing for which an SpO2 was taken that was apparently in the 80's for which she was placed on oxygen and sent to the [place] ED. Review of systems She otherwise denies any fever, chills, blurred/double vision, chest pain, palpitations, heartburn, current shortness of breath, abdominal pain, constipation, or urinary symptoms. Objective Vitals: Temp 97.5-97.8, HR 86-142, RR 16, BP 102-120/68-79, SPO2 94-100% on 3.0L Physical exam -General: elderly woman in no acute distress -HEENT: NCAT, PERRL, EOMI, anicteric sclera -Neck: Supple, no JVP, trachea midline, no accessory respiratory muscle use -Cardio: irregularly irregular; rate normal -Pulmonary: Diminished right sided airflow with bilateral crackles -Abdomen: Soft, NT, ND, BS+ -Neuro: Awake and alert, CN II-XII grossly intact -Extremities: trace bilateral lower extremity nonpitting edema, normal pulses Labs/imaging/studies -CBC: WBC 15.3, hemoglobin 12.6, hematocrit 30.5, platelet 170 -BMP: Sodium 138, potassium 3.2, chloride 109, CO2 19, BUN 40, creatinine 0.7, anion gap 10, glucose 78 -LFT: Within normal limits -Miscellaneous: Calcium 6.9, magnesium 1.0, albumin 2.4, BNP 6060, troponin I 0.03 -EKG: Afib with RVR, Left axis deviation, poor r-wave progression, old anterior/ inferior WA -Echocardiogram 07/26/17: LVEF >60% without regional wall motion LVH, moderate/ severe biatrial enlargement, moderate MR/TR, mild -CXR: * Mild pulmonary vascular congestion, large RIGHT pleural effusion with probably underlying infiltrates and/or atelectasis. Follow-up chest PA and lateral recommended when patient's condition permits. Assessment 82-year-old woman with multiple medical problems significant for HFpEF, A. fib, and B-cell lymphoma in remis seen for evaluation of shortness of breath, weakness, and hypoxia. On admission, patient admits to feeling fatigued and otherwise denies any symptoms including current shortness of breath. Vitals on admission are significant for elevated heart rate up to 140s and low normal spO2 on room air 2L. Physical exam demonstrated diminished right lung sounds with bilateral scattered scant crackles (Right > Left). Significant labs include WBC 15.3, K 3.2, Ca 6.9, albumin 2.4, Mg 1.0, BNP 6K, troponin I 0.03, and INR 4.39. CXR demonstrates a large right sided pleural effusion with pulmonary vascular congestion. Problem list -HYPOXIA secondary to acute on Chronic HFpEF and pulmonary infiltrate -Large right sided pleural effusion -Atrial fibrillation with rapid ventricular response -Peripheral vascular disease -Supratherapeutic INR -Hypomagnesenemia -Dementia -History of Atrial fibrillation, on Coumadin -Bioprosthetic aortic valve -History of B-cell lymphoma, "in remission" -History of DVT -History of lupus anticoagulant -Thalassemia -Iron Deficiency Anemia -Osteoporosis -GERD Plan -Continue to monitor patient in telemetry -Strict ins and outs, daily weights -We have discontinued Whitaker catheter as patient is growing ESBL in her urine, no evidence of UTI on UA however, both test done the same day 12/18. -We will continue to hold patient's Lasix this morning and will restart her home dose Lasix of 20 mg p.o. daily tomorrow. -We evaluated patient's pulmonary effusion with CT chest which showed persistent consolidation and/or atelectasis in the right lower lobe with small to moderate sized right pleural effusion and bronchial wall thickening in the lower lobes which could be a manifestation of inflammation or infection of the airways. Of note, patient did have a white cell count and tachycardia on admission but now has a normal white cell count and has a heart rate in the high 80s. We spoke with interventional radiology this morning who states that the pleural effusion is not big enough to tap and that changes seen on the scan are likely secondary to pneumonia. We began ceftriaxone and doxycycline on the patient as she does have reaction to the closely related clarithromycin (diarrhea). -Patient's INR today is 1.88 after giving vitamin K p.o. 5 mg yesterday for possible thoracentesis today. Today we will restart her Coumadin at 3 mg. -TRC nebs, supplemental oxygen, goal >92%, taper as tolerated -Patient has had hypertension over today and a high heart rate and as per cardiology we will continue the beta-shon. -Contact the patient's son for discussion on next steps -Senna S and MiraLAX for constipation -PT eval -Continue home meds: Calcitriol, iron, fluoxetine, folic acid, PPO, magnesium, metoprolol, KCl, tramadol -Pain control with acetaminophen as needed -DVT PPx with Coumadin, ALPS -DNR paper on chart Problem List: 1. UTI (urinary tract infection) 2. CHF exacerbation 3. Atrial fibrillation Pain Ratin Pain Location: NA Pain Goal: Remain pain free Pain Plan: NA Tomorrow's Labs & Rationales: RICKY Santos MD,Melinda 12/20/17 1046: Attending MD Review Statement Attending Statement Attending MD Statement: examined this patient, discuss w/resident/PA/LEAF TIER, agreed w/resident/PA/LEAF TIER, reviewed EMR data (avail), discussed with nursing, discussed with case mgmt, reviewed images Attending Assessment/Plan: Patient got vitamin K yesterday in anticipation of a possible thoracentesis today. However in talking to IR Dr. Herrera feels this is more likely a pneumonia with compressive atelectasis and a very small effusion. Given her borderline blood pressure, cough and shortness of breath will start on antibiotics to cover her for pneumonia. Will speak to cardiology, take out her catheter and follow closely.
[2017-12-20 07:58] LABS: ABSOLUTE BASOPHIL COUNT 0 /CUMM (0.0-0.2); ABSOLUTE EOSINOPHIL COUNT 0 /CUMM (0.0-0.7); ABSOLUTE GRANULOCYTE CT 4.5 /CUMM (1.4-6.5); ABSOLUTE MONOCYTE COUNT 0.5 /CUMM (0.10-0.60); BASOPHIL % 0.3 % (0.0-2.0); EOSINOPHIL % 0.3 % (0-5); GRANULOCYTE % 74.2 % (42.2-75.2); HEMATOCRIT 34.2 % (37-47); MEAN CORPUSCULAR HGB 31.6 PG (27.0-31.0); MEAN CORPUSCULAR VOLUME 95.7 FL (81.0-99.0); MEAN PLATELET VOLUME 9.1 FL (7.4-10.4); PLATELET COUNT 152 /CUMM (130-400); RBC DISTRIBUTION WIDTH 17.6 % (11.5-14.5); RED BLOOD CELL CT 3.58 /CUMM (4.20-5.40)
[2017-12-20 08:14] LABS: PT 20.6 SEC (9.4-12.5)
--- NOTE | 2017-12-20 10:43 | PN- Cardiology ---
Subjective Subjective: The patient is feeling a little better. She has no specific complaints at this time. She remains on oxygen. Her saturations are good on 2 L. She is net negative about 4 L. Lasix is on hold. Her BUN is down to 40. Her INR is down to 1.88. Her heart rate is improved in the 70s and 80s today. She is on antibiotics for presumed pneumonia. Radiology feels this is more likely etiology of her effusion and thoracentesis is on hold. Objective Vital Signs and I&Os Vital Signs Date Time Temp Pulse Resp B/P B/P Pulse O2 O2 Flow FiO2 Mean Ox Delivery Rate 12/20 825 77 102/60 12/20 0628 97.5 89 15 90/52 96 12/20 0000 Nasal 2.0L Cannula 12/19 2226 89 92/62 12/19 2206 98.4 95 15 92/62 88 12/19 1526 Nasal 2.5L Cannula 12/19 1442 97.6 84 18 90/74 92 Nasal 2.5L Cannula 12/19 1100 104 88/56 Intake & Output 12/20 0000 12/19 1600 12/19 0000 Intake Total 680 150 Output Total 427 106 8434 700 1000 Balance -200 -550 -320 -550 -1000 Intake, Oral 680 150 Number 1 1 0 Bowel Movements Output, Urine 100 625 0090 700 1000 Patient 109 lb 107 lb 116 lb Weight Physical Exam: HEENT exam normal Chest bibasilar coarse crackles Heart irregular, normal rate No edema Current Medications: Current Medications Sig/Eulalia Start time Last Medication Dose Route Stop Time Status Admin Acetaminophen 650 MG Q6P PRN 12/18 0445 AC PO Calcitriol 0.5 MCG DAILY 12/18 899 AC 12/20 PO 825 Ceftriaxone Sodium 1,000 MG DAILY 12/20 899 AC 12/20 IV 0825 Doxycycline Hyclate 100 MG BID 12/20 1010 AC PO Ferrous Sulfate 325 MG DAILY 12/18 899 AC 12/20 PO 825 Fluoxetine HCl 20 MG DAILY 12/18 899 AC 12/20 PO 825 Folic Acid 1 MG DAILY 12/18 899 AC 12/20 PO 825 Furosemide 40 MG DAILY 12/18 0400 DC 12/19 IV 0911 Magnesium Oxide 400 MG DAILY 12/18 899 AC 12/20 PO 824 Metoprolol Tartrate 50 MG BID 12/18 2100 AC 12/20 PO 08 Omeprazole 40 MG DAILY AC 12/18 0700 AC 12/20 PO 0624 Phytonadione 5 MG ONCE ONE 12/19 2029 DC 12/19 PO 12/19 Polyethylene Glycol 17 GM DAILY 12/19 1117 AC 12/20 PO 0825 Potassium Chloride 10 MEQ DAILY 12/18 0900 AC 12/20 PO 08 Senna/Docusate Sodium 1 TAB BID PRN 12/19 1130 AC 12/20 PO 0825 Tramadol HCl 50 MG Q4H PRN 12/18 0445 AC 12/19 PO 222 Results Last 48 Hrs of Labs/Mics: Laboratory Tests 12/20/17 0641: Anion Gap 12, Estimated GFR > 60, BUN/Creatinine Ratio 55.0 H, PT 20.6 H, INR 1.88 H, CBC w Diff NO MAN DIFF REQ, RBC 3.58 L, MCV 95.7, MCH 31.6 H, MCHC 33.0, RDW 17.6 H, MPV 9.1, Gran % 74.2, Lymphocytes % 16.6 L, Monocytes % 8.6, Eosinophils % 0.3, Basophils % 0.3, Absolute Granulocytes 4.5, Absolute Lymphocytes 1.0 L, Absolute Monocytes 0.5, Absolute Eosinophils 0, Absolute Basophils 0 12/19/17 1755: PT 27.6 H, INR 2.51 H 12/19/17 0700: Anion Gap 10, Estimated GFR > 60, BUN/Creatinine Ratio 60.0 H, PT 31.2 H, INR 2.83 H, CBC w Diff NO MAN DIFF REQ, RBC 3.31 L, MCV 95.5, MCH 31.3 H, MCHC 32.7 L, RDW 18.1 H, MPV 8.9, Gran % 76.3 H, Lymphocytes % 16.8 L, Monocytes % 6.7, Eosinophils % 0.1, Basophils % 0.1, Absolute Granulocytes 4.8, Absolute Lymphocytes 1.1 L, Absolute Monocytes 0.4, Absolute Eosinophils 0, Absolute Basophils 0 12/18/17 1230: Anion Gap 12, Estimated GFR > 60, BUN/Creatinine Ratio 58.8 H, Magnesium 1.3 L , PT 41.7 H, INR 3.77 H Assessment/Plan Assessment/Plan She is clinically improved. If she is not going to have thoracentesis I would restart Coumadin and start p.o. Lasix tomorrow. I would continue on her current dose of metoprolol. If her heart rate remains stable telemetry can be D/C'd tomorrow. Continue telemetry? Yes
[2017-12-20 14:05] VITALS: BP 96/70
[2017-12-20 22:13] VITALS: BP 90/58
[2017-12-21 06:57] VITALS: BP 92/58
[2017-12-21] MEDS ORDERED: METOPROLOL TART50 M1 PO (08:11)
--- NOTE | 2017-12-21 08:11 | Patient Discharge Instructions ---
Discharge Instructions General Discharge Information You were seen/treated for: CHF EXACERBATION PNEUMONIA WITH PLEURAL EFFUSION Special Instructions: 1. PLEASE FOLLOW UP WITH PCP IN ONE WEEK 2. PLEASE FOLLOW UP WITH BUSINESS SUPPORT COORDINATOR DR. MOORE IN ONE WEEK Diet Continue normal diet: Yes Activity Full Activity/No Limits: Yes Acute Coronary Syndrome Inclusion Criteria At DC or during hospital stay patient has or had the following: ACS DIAGNOSIS No Discharge Core Measures Meds if any: Prescribed or Continued at Discharge Meds if any: NOT Prescribed or Continued at Discharge Congestive Heart Failure Inclusion Criteria At DC or during hospital stay patient has or had the following: CHF DIAGNOSIS No Discharge Core Measures Meds if any: Prescribed or Continued at Discharge Meds if any: NOT Prescribed or Continued at Discharge Cerebrovascular accident Inclusion Criteria At DC or during hospital stay patient has or had the following: CVA/TIA Diagnosis No Discharge Core Measures Meds if any: Prescribed or Continued at Discharge Meds if any: NOT Prescribed or Continued at Discharge Venous thromboembolism Inclusion Criteria VTE Diagnosis No VTE Type NONE VTE Confirmed by (Test) NONE Discharge Core Measures - Per Current guidelines, there needs to be overlap - treatment for the first 5 days of Warfarin therapy. - If discharged on Warfarin prior to 5 days of - overlap therapy, the patient will need to be - assessed for post discharge needs including - *Post discharge parental anticoagulation - *Warfarin and/or parental anticoagulation education - *Follow up date to check INR post discharge At least 5 days overlap therapy as Inpatient No Meds if any: Prescribed or Continued at Discharge Note: Overlap Therapy is Warfarin and Anticoagulant Meds if any: NOT Prescribed or Continued at Discharge
--- NOTE | 2017-12-21 08:14 | PN- Housestaff ---
Angela MCKEON,Stephanie 12/21/17 0814: Subjective Follow-up For: CHF exacerbation Pleural effusion Likely aspiration pneumonia A. fib on Coumadin with now subtherapeutic INR Subjective: Patient was seen and examined. She said that she felt a little short of breath when she moved from the bed to the chair. She has no other symptoms and denies chest pain or cough. She denies any dysuria. Her vitals are stable and she continues to saturate 99% on 2 L. Her heart rates overnight have been in the 90s. Review of Systems Constitutional: Reports: no symptoms. Cardiovascular: Reports: no symptoms. Respiratory: Reports: short of breath. Gastrointestinal: Reports: no symptoms. Musculoskeletal: Reports: no symptoms. Skin: Reports: no symptoms. Neurological/Psychological: Reports: no symptoms. Objective Last 24 Hrs of Vital Signs/I&O Vital Signs Date Time Temp Pulse Resp B/P B/P Pulse O2 O2 Flow FiO2 Mean Ox Delivery Rate 12/21 1103 93 Room Air Room Air 12/21 1027 92/66 12/21 0657 98.2 73 14 99 Nasal 2.0L Cannula 12/21 0000 Nasal 2.0L Cannula 12/20 2221 94 Nasal 2.5L Cannula 12/20 2213 97.4 93 18 92 Nasal Cannula 12/20 2131 90 58 12/20 1405 97.1 86 16 96/70 91 Nasal Cannula 12/20 1309 98 Nasal 2.0L Cannula Intake & Output 12/21 1600 12/21 0800 12/21 0000 Intake Total 120 120 Output Total Balance 120 120 Intake, Oral 120 120 Number 1 Bowel Movements Patient 97 lb 2 oz Weight Weight Bed scale Measurement Method Physical Exam General Appearance: Alert, Oriented X3, Cooperative, No Acute Distress Skin Temp/Moisture Exam: Warm/Dry HEENT: Atraumatic, EOMI, Mucous Membr. moist/pink Cardiovascular: Regular Rate, Normal S1, Normal S2 Lungs: distant breath sounds on right. mild crackles at base. Abdomen: Normal Bowel Sounds, Soft, No Tenderness Extremities: No Clubbing, No Cyanosis, No Edema Current Medications: Current Medications Sig/Eulalia Start time Last Medication Dose Route Stop Time Status Admin Acetaminophen 650 MG Q6P PRN 12/18 0445 AC PO Calcitriol 0.5 MCG DAILY 12/18 0900 AC 12/21 PO 1026 Ceftriaxone Sodium 1,000 MG DAILY 12/20 0900 AC 12/21 IV 1028 Doxycycline Hyclate 100 MG BID 12/20 1010 AC 12/21 PO 1027 Ferrous Sulfate 325 MG DAILY 12/18 09 AC 12/21 PO 1027 Fluoxetine HCl 20 MG DAILY 12/18 09 AC 12/21 PO 1027 Folic Acid 1 MG DAILY 12/18 0900 AC 12/21 PO 1027 Furosemide 20 MG DAILY 12/21 09 AC 12/21 PO 1027 Magnesium Oxide 400 MG DAILY 12/18 09 AC 12/21 PO 1028 Melatonin 5 MG AT BEDTIME 12/20 2100 AC 12/20 PO 2131 Metoprolol Tartrate 50 MG BID 12/18 2100 AC 12/20 PO 0826 Omeprazole 40 MG DAILY AC 12/18 07 AC 12/21 PO 0512 Polyethylene Glycol 17 GM DAILY 12/19 1117 AC 12/21 PO 1028 Potassium Chloride 10 MEQ DAILY 12/18 09 AC 12/21 PO 1027 Senna/Docusate Sodium 1 TAB BID PRN 12/19 1130 AC 12/20 PO 0825 Tramadol HCl 50 MG Q4H PRN 12/18 0445 AC 12/21 PO 1027 Warfarin Sodium 3 MG COUMADIN 1700 ONE 12/21 1700 AC PO 12/21 1701 Warfarin Sodium 3 MG COUMADIN 1700 ONE 12/20 1700 DC 12/20 PO 12/20 1701 1608 Warfarin Sodium 3 MG .STK-MED ONE 12/20 1604 DC PO 12/20 1605 Last 24 Hrs of Lab/Merrill Results Last 24 Hrs of Labs/Mics: Laboratory Tests 12/21/17 0640: PT 16.0 H, INR 1.46 H Assessment/Plan Assessment: 82-year-old with past medical history of HFpEF (LVEF >60%), B-cell lymphoma, atrial fibrillation on Coumadin, bioprosthetic AVR, DVT, lupus anticoagulant, thalassemia, iron deficiency anemia, GERD, and dementia brought in by ambulance from [facility] for evaluation of shortness of breath, weakness and hypoxia. Patient was previously admitted to [facility] from 07/24/17-08/01/17 for evaluation of weakness, shortness breath, and lower extremity swelling with weight gain and treated for acute decompensated CHF exacerbation, UTI, and digoxin toxicity. She was diuresed, treated with antibiotics, and discontinued from digoxin uptitrated on her beta-shon discharged back to her ECF. Patient is a poor historian and does not return specific details of the day. Collateral information obtained from the F paperwork / W10. Patient was reportedly seen to have increased work of breathing for which an SpO2 was taken that was apparently in the 80's for which she was placed on oxygen and sent to the [facility]. Review of systems She otherwise denies any fever, chills, blurred/double vision, chest pain, palpitations, heartburn, current shortness of breath, abdominal pain, constipation, or urinary symptoms. Objective Vitals: Temp 97.5-97.8, HR 86-142, RR 16, BP 102-120/68-79, SPO2 94-100% on 3.0L Physical exam -General: elderly woman in no acute distress -HEENT: NCAT, PERRL, EOMI, anicteric sclera -Neck: Supple, no JVP, trachea midline, no accessory respiratory muscle use -Cardio: irregularly irregular; rate normal -Pulmonary: Diminished right sided airflow with bilateral crackles -Abdomen: Soft, NT, ND, BS+ -Neuro: Awake and alert, CN II-XII grossly intact -Extremities: trace bilateral lower extremity nonpitting edema, normal pulses Labs/imaging/studies -CBC: WBC 15.3, hemoglobin 12.6, hematocrit 30.5, platelet 170 -BMP: Sodium 138, potassium 3.2, chloride 109, CO2 19, BUN 40, creatinine 0.7, anion gap 10, glucose 78 -LFT: Within normal limits -Miscellaneous: Calcium 6.9, magnesium 1.0, albumin 2.4, BNP 6060, troponin I 0.03 -EKG: Afib with RVR, Left axis deviation, poor r-wave progression, old anterior/ inferior NE -Echocardiogram 07/26/17: LVEF >60% without regional wall motion LVH, moderate/ severe biatrial enlargement, moderate MR/TR, mild -CXR: * Mild pulmonary vascular congestion, large RIGHT pleural effusion with probably underlying infiltrates and/or atelectasis. Follow-up chest PA and lateral recommended when patient's condition permits. Assessment 82-year-old woman with multiple medical problems significant for HFpEF, A. fib, and B-cell lymphoma in remis seen for evaluation of shortness of breath, weakness, and hypoxia. On admission, patient admits to feeling fatigued and otherwise denies any symptoms including current shortness of breath. Vitals on admission are significant for elevated heart rate up to 140s and low normal spO2 on room air 2L. Physical exam demonstrated diminished right lung sounds with bilateral scattered scant crackles. Significant labs include WBC 15.3, K 3.2, Ca 6.9, albumin 2.4, Mg 1.0, BNP 6K, troponin I 0.03, and INR 4.39. CXR demonstrates a large right sided pleural effusion with pulmonary vascular congestion. Problem list -HYPOXIA secondary to acute on Chronic HFpEF and pulmonary infiltrate -Large right sided pleural effusion -Atrial fibrillation with rapid ventricular response -Peripheral vascular disease -Supratherapeutic INR -Hypomagnesenemia -Dementia -History of Atrial fibrillation, on Coumadin -Bioprosthetic aortic valve -History of B-cell lymphoma, "in remission" -History of DVT -History of lupus anticoagulant -Thalassemia -Iron Deficiency Anemia -Osteoporosis -GERD Plan -Continue to monitor patient in telemetry -Strict ins and outs, daily weights -We have discontinued Whitaker catheter as patient is growing ESBL in her urine, no evidence of UTI on UA however, both test done the same day 12/18. -We will restart her home dose Lasix of 20 mg p.o. daily today -We evaluated patient's pulmonary effusion with CT chest which showed persistent consolidation and/or atelectasis in the right lower lobe with small to moderate sized right pleural effusion and bronchial wall thickening in the lower lobes which could be a manifestation of inflammation or infection of the airways. Of note, patient did have a white cell count and tachycardia on admission but now has a normal white cell count and has a heart rate in the high 80s. We spoke with interventional radiology yesterday, Dr. Herrera, who states that the pleural effusion is not big enough to tap and that changes seen on the scan are likely secondary to pneumonia. We began ceftriaxone and doxycycline on the patient as she does have reaction to the closely related clarithromycin (diarrhea). -Patient's INR today is 1.46 after giving vitamin K p.o. 5 mg previously for possible thoracentesis followed by 3 mg of Coumadin yesterday. Today we will again give Coumadin 3 mg. She normally takes 1 mg of Coumadin on Monday and Monday and 2 mg the rest the days. -TRC nebs, supplemental oxygen, goal >92%, taper as tolerated -Continue the beta-shon for her tachycardia as well as hypertension. She is currently on 50 mg twice daily and it is suggested to use Cardizem if needed for better rate control. She normally takes 25 mg at home twice daily. -Care plan has been discussed with the patient's son James Marino and MiraLAX for constipation, patient had bowel movement yesterday. -Continue home meds: Calcitriol, iron, fluoxetine, folic acid, PPO, magnesium, metoprolol, KCl, tramadol -Pain control with acetaminophen as needed -DVT PPx with Coumadin, ALPS -DNR paper on chart Problem List: 1. Aspiration pneumonia 2. Subtherapeutic anticoagulation Pain Ratin Pain Location: na Pain Goal: Remain pain free Pain Plan: na Tomorrow's Labs & Rationales: raquel Santos MD,Melinda 12/21/17 1006: Attending MD Review Statement Attending Statement Attending MD Statement: examined this patient, discuss w/resident/PA/CAM SPECIALIST, agreed w/resident/PA/CAM SPECIALIST, reviewed EMR data (avail), discussed with nursing, discussed with case mgmt, reviewed images Attending Assessment/Plan: Overall patient says she is doing better. We are treating her for pneumonia with IV ceftriaxone and doxycycline. We also treated her for acute heart failure exacerbation with IV Lasix and now we have her on p.o. Lasix. We are dosing her Coumadin. And if she stays stable and anticipate discharge in a.m. with outpatient follow-up.
[2017-12-21] MEDS ORDERED: DOXYCYCLINE HY100 M2 PO (10:49)
--- NOTE | 2017-12-21 11:08 | Discharge Summary ---
Visit Information Visit Dates Admission Date: 12/17/17 Discharge Date: 12/22/17 Hospital Course Course Attending Physician: Tom MCKEON,Melinda Bhardwaj Primary Care Physician: Elana MCKEON,Jesus Nguyen Hospital Course: 82-year-old with past medical history of HFpEF (LVEF >60%), B-cell lymphoma, atrial fibrillation on Coumadin, bioprosthetic AVR, DVT, lupus anticoagulant, thalassemia, iron deficiency anemia, GERD, and dementia brought in by ambulance from [facility] for evaluation of shortness of breath, weakness and hypoxia.Patient was previously admitted to [facility] from 07/24/17-08/01/17 for evaluation of weakness, shortness breath, and lower extremity swelling with weight gain and treated for acute decompensated CHF exacerbation, UTI, and digoxin toxicity. She was diuresed, treated with antibiotics, and discontinued from digoxin uptitrated on her beta-shon discharged back to her ECF.Patient is a poor historian and does not return specific details of the day. Collateral information obtained from the F paperwork / W10. Patient was reportedly seen to have increased work of breathing for which an SpO2 was taken that was apparently in the 80's for which she was placed on oxygen and sent to the [facility] ED. Review of systems She otherwise denies any fever, chills, blurred/double vision, chest pain, palpitations, heartburn, current shortness of breath, abdominal pain, constipation, or urinary symptoms. Objective Vitals: Temp 97.5-97.8, HR 86-142, RR 16, BP 102-120/68-79, SPO2 94-100% on 3.0L Physical exam -General: elderly woman in no acute distress -HEENT: NCAT, PERRL, EOMI, anicteric sclera -Neck: Supple, no JVP, trachea midline, no accessory respiratory muscle use -Cardio: irregularly irregular; rate normal -Pulmonary: Diminished right sided airflow with bilateral crackles -Abdomen: Soft, NT, ND, BS+ -Neuro: Awake and alert, CN II-XII grossly intact -Extremities: trace bilateral lower extremity nonpitting edema, normal pulses Labs/imaging/studies -CBC: WBC 15.3, hemoglobin 12.6, hematocrit 30.5, platelet 170 -BMP: Sodium 138, potassium 3.2, chloride 109, CO2 19, BUN 40, creatinine 0.7, anion gap 10, glucose 78 -LFT: Within normal limits -Miscellaneous: Calcium 6.9, magnesium 1.0, albumin 2.4, BNP 6060, troponin I 0.03 -EKG: Afib with RVR, Left axis deviation, poor r-wave progression, old anterior/ inferior TN -Echocardiogram 07/26/17: LVEF >60% without regional wall motion LVH, moderate/ severe biatrial enlargement, moderate MR/TR, mild -CXR: * Mild pulmonary vascular congestion, large RIGHT pleural effusion with probably underlying infiltrates and/or atelectasis. Follow-up chest PA and lateral recommended when patient's condition permits. Assessment and Problem List: 82-year-old woman with multiple medical problems significant for HFpEF, A. fib, and B-cell lymphoma in remis seen for evaluation of shortness of breath, weakness, and hypoxia. -HYPOXIA secondary to acute on Chronic HFpEF and pulmonary infiltrate -Large right sided pleural effusion -Atrial fibrillation with rapid ventricular response -Peripheral vascular disease -Supratherapeutic INR -Hypomagnesenemia -Dementia -History of Atrial fibrillation, on Coumadin -Bioprosthetic aortic valve -History of B-cell lymphoma, "in remission" -History of DVT -History of lupus anticoagulant -Thalassemia -Iron Deficiency Anemia -Osteoporosis -GERD Hospital Course: Admitted patient to telemetry for monitoring and evaluation. Strict ins and outs, daily weights, lyons placement. Continued home meds: Calcitriol, iron, fluoxetine, folic acid, PPO, magnesium, metoprolol, KCl, tramadol. Patient given Lasix 40mg iv with plan to switch to home dose next day. Patient was found to have continued delirium. UA did not show evidence of UTI but her son reported that this is how she usually is when she has a UTI. Urine culture was clear at that point but we still started ceftriaxone with the plan to continue it for 3 days. We evaluated patient's pulmonary effusion with CT chest which showed persistent consolidation and/or atelectasis in the right lower lobe with small to moderate sized right pleural effusion and bronchial wall thickening in the lower lobes which could be a manifestation of inflammation or infection of the airways. Of note, patient did have a white cell count and tachycardia on admission which normalized over time. We spoke with interventional radiology who stated that the pleural effusion is not big enough to tap and that changes seen on the scan are likely secondary to pneumonia. We had held patient's coumadin for potential thora and had even reversed it with vitamin K. We, at this time, restarted home dose of coumadin. We added doxycycline on the patient 's med regimine as she does have history of reaction to the closely related clarithromycin (diarrhea) to cover for community acquired pneumonia. TRC nebs, supplemental oxygen, goal >92%. We discontinued Lyons catheter as patient was found to be growing ESBL in her urine, no evidence of UTI on UA however, both test done the same day 12/18, likely colonization. Patient has history of afib and heart rates were elevated in the hospital. Her home metoprolol was increased to 50mg bid with supplemental cardizem as needed for further control. Metoprolol was held a few times for low blood pressure but Dr. Cortes payable representative, ordered to give it as long as blood pressure was not extremely low and she was asymptomatic. Patient continued to have a subtherapeutic INR due to us giving her vitamin K in anticipation of a thoracentesis which was not done. Today on the day of discharge her INR is 2 and she can continue her usual Coumadin dose. -Pain control with acetaminophen as needed -DVT PPx with Coumadin, ALPS -DNR paper on chart Allergies: Coded Allergies: clarithromycin (From BIAXIN) (Severe, DIARRHEA 02/23/17) lactose (UNKNOWN 07/24/17) Disposition Summary Disposition Principal Diagnosis: CHF EXACERBATION, acute diastolic heart failure Additional Diagnosis: PNEUMONIA Atrial fibrillation Discharge Disposition: SNF Discharge Instructions General Discharge Information Code Status: Do Not Resucitate Patient's Diet: LOW SALT Patient's Activity: TOLERATED Follow-Up Instructions/Appts: 1. PLEASE FOLLOW UP WITH PCP IN ONE WEEK 2. PLEASE FOLLOW UP WITH SHIP [facility] DR. CORTES IN ONE WEEK Medications at Discharge Discharge Medications: Stop taking the following medications: Metoprolol Tartrate (Metoprolol Tartrate) 25 MG TABLET ORAL TWICE DAILY Morphine Sulfate (Morphine Sulfate) 20 MG/ML SYRINGE SUBLINGUAL Q2H Continue taking these medications: Folic Acid (Folic Acid) 1 MG TABLET 1 Tablet ORAL DAILY Comments: Last Taken: 08/01/17 Time: 10 AM Lansoprazole (Lansoprazole) 30 MG CAPSULE. 1 Capsule ORAL DAILY Calcitriol (Calcitriol) 0.5 MCG CAPSULE 1 Capsule ORAL DAILY Ferrous Sulfate (IRON) 325 MG (65 MG IRON) TABLET 1 Tablet ORAL As Directed Fluoxetine HCl (Fluoxetine HCl) 20 MG CAPSULE 1 Capsule ORAL DAILY Magnesium Oxide (Magnesium) 400 MG TABLET 1 Tablet ORAL DAILY Potassium Chloride (Potassium Chloride) 10 MEQ CAPSULE.ER 1 Capsule ORAL DAILY Acetaminophen (Mapap) 500 MG CAPSULE 1 Capsule ORAL TWICE DAILY as needed for PAIN Furosemide (Lasix) 20 MG TABLET 1 Tablet ORAL DAILY Warfarin Sodium (Coumadin) 2 MG TABLET 1 Tablet ORAL MONTHRUFRI Warfarin Sodium (Coumadin) 1 MG TABLET 1 Tablet ORAL SATSUN Tramadol HCl (Tramadol HCl) 50 MG TABLET 1 Tablet ORAL Q4H as needed for PAIN Start taking the following new medications: Doxycycline Hyclate (Doxycycline Hyclate) 100 MG CAPSULE 100 Milligram ORAL TWICE DAILY Qty = 9 No Refills Metoprolol Tartrate (Metoprolol Tartrate) 50 MG TABLET 50 Milligram ORAL TWICE DAILY Qty = 60 No Refills Copies To: Sebastian MCKEON,Will Huitron MD,Jesus Nguyen
--- NOTE | 2017-12-21 12:47 | PN- Cardiology ---
Subjective Subjective: The patient seems somewhat improved. She is off oxygen and saturating at 93%. Her blood pressures are still on the low side but acceptable. Her INR is subtherapeutic but is being addressed. She is still on antibiotics and oral Lasix. Her heart rate is in the 90s to low 100s in atrial fibrillation on metoprolol 50 mg twice daily. Objective Vital Signs and I&Os Vital Signs Date Time Temp Pulse Resp B/P B/P Pulse O2 O2 Flow FiO2 Mean Ox Delivery Rate 12/21 1229 135 106/66 12/21 1103 93 Room Air Room Air 12/21 1027 92/66 12/21 0800 95 Nasal 2.0L Cannula 12/21 0657 98.2 73 14 92/58 99 Nasal 2.0L Cannula 12/21 0000 Nasal 2.0L Cannula 12/20 2221 94 Nasal 2.5L Cannula 12/20 2213 97.4 93 18 90/58 92 Nasal Cannula 12/20 2131 90 90/58 12/20 1405 97.1 86 16 96/70 91 Nasal Cannula 12/20 1309 98 Nasal 2.0L Cannula Intake & Output 12/21 1600 12/21 0812/21 0000 12/20 1600 12/20 0812/20 0000 Intake Total 120 120 Output Total 325 200 550 Balance 120 120 -325 -200 -550 Intake, Oral 120 120 Number 1 1 Bowel Movements Output, Urine 325 200 550 Patient 97 lb 2 oz 109 lb 109 lb 107 lb Weight Weight Bed scale Measurement Method Physical Exam: Sitting in chair comfortable no distress HEENT exam normal Chest coarse bibasilar rales Heart irregular no murmurs No edema Current Medications: Current Medications Sig/Eulalia Start time Last Medication Dose Route Stop Time Status Admin Acetaminophen 650 MG Q6P PRN 12/18 0445 AC PO Calcitriol 0.5 MCG DAILY 12/18 899 AC 12/21 PO 1026 Ceftriaxone Sodium 1,000 MG DAILY 12/20 899 AC 12/21 IV 1028 Doxycycline Hyclate 100 MG BID 12/20 1010 AC 12/21 PO 1027 Ferrous Sulfate 325 MG DAILY 12/18 899 AC 12/21 PO 1027 Fluoxetine HCl 20 MG DAILY 12/18 899 AC 12/21 PO 1027 Folic Acid 1 MG DAILY 12/18 899 AC 12/21 PO 1027 Furosemide 20 MG DAILY 12/21 899 AC 12/21 PO 1027 Magnesium Oxide 400 MG DAILY 12/18 0900 AC 12/21 PO 1028 Melatonin 5 MG AT BEDTIME 12/20 2099 AC 12/20 PO 2131 Metoprolol Tartrate 50 MG BID 12/18 2100 AC 12/21 PO 1229 Omeprazole 40 MG DAILY AC 12/18 07 AC 12/21 PO 0512 Polyethylene Glycol 17 GM DAILY 12/19 1117 AC 12/21 PO 1028 Potassium Chloride 10 MEQ DAILY 12/18 09 AC 12/21 PO 1027 Senna/Docusate Sodium 1 TAB BID PRN 12/19 1130 AC 12/20 PO 0825 Tramadol HCl 50 MG Q4H PRN 12/18 0445 AC 12/21 PO 1027 Warfarin Sodium 3 MG COUMADIN 1700 ONE 12/21 1700 AC PO 12/21 1701 Warfarin Sodium 3 MG COUMADIN 1700 ONE 12/20 1700 DC 12/20 PO 12/20 1701 1608 Warfarin Sodium 3 MG .STK-MED ONE 12/20 1604 DC PO 12/20 1605 Results Last 48 Hrs of Labs/Mics: Laboratory Tests 12/21/17 0640: PT 16.0 H, INR 1.46 H 12/20/17 0641: Anion Gap 12, Estimated GFR > 60, BUN/Creatinine Ratio 55.0 H, PT 20.6 H, INR 1.88 H, CBC w Diff NO MAN DIFF REQ, RBC 3.58 L, MCV 95.7, MCH 31.6 H, MCHC 33.0, RDW 17.6 H, MPV 9.1, Gran % 74.2, Lymphocytes % 16.6 L, Monocytes % 8.6, Eosinophils % 0.3, Basophils % 0.3, Absolute Granulocytes 4.5, Absolute Lymphocytes 1.0 L, Absolute Monocytes 0.5, Absolute Eosinophils 0, Absolute Basophils 0 12/19/17 9545: PT 27.6 H, INR 2.51 H Assessment/Plan Assessment/Plan The patient seems overall improved. She remains in atrial fibrillation with rates reasonably well-controlled but occasionally a little tachycardic. Some of her doses of metoprolol have been held because of borderline blood pressures. I recommended that her metoprolol be given regardless of blood pressure unless it is extremely low or if she is symptomatic with the blood pressure. If her rate is not well controlled then I would add a little Cardizem or increase the metoprolol dose. She should be discharged on whatever dose is best to control her rate. Continue telemetry? Yes
[2017-12-21 14:34] VITALS: BP 96/68
[2017-12-21 22:30] VITALS: BP 88/48
[2017-12-22 01:00] VITALS: BP 96/56
[2017-12-22 06:39] VITALS: BP 98/50
--- NOTE | 2017-12-22 07:59 | PN- Housestaff ---
Angela MCKEON,Stephanie 12/22/17 0759: Subjective Follow-up For: CHF exacerbation Pleural effusion Likely aspiration pneumonia A. fib on Coumadin with now subtherapeutic INR Subjective: Patient has no complaints today other than being cold. Vitals overnight some elevated heart rate which decreased when given her morning meds and low blood pressure down to 88/48. Review of Systems Constitutional: Reports: no symptoms. Cardiovascular: Reports: no symptoms. Respiratory: Reports: no symptoms. Gastrointestinal: Reports: no symptoms. Musculoskeletal: Reports: no symptoms. Objective Last 24 Hrs of Vital Signs/I&O Vital Signs Date Time Temp Pulse Resp B/P B/P Pulse O2 O2 Flow FiO2 Mean Ox Delivery Rate 12/22 0832 88 102/50 / 0639 97.6 82 20 98/50 94 Room Air 12/22 0100 96/56 12/22 0000 Room Air 12/21 2230 98.0 91 16 88/48 92 / 2052 92 Room Air Room Air 12/21 2025 88 102/66 12/21 1434 97.9 101 16 96/68 92 Room Air 12/21 1229 135 106/66 Intake & Output 12/22 1600 12/22 0800 12/22 0000 Intake Total 240 120 Output Total 400 350 Balance -160 -230 Intake, Oral 240 120 Number 1 Bowel Movements Output, Urine 400 350 Physical Exam General Appearance: Alert, Cooperative, No Acute Distress Skin: No Rashes, No Breakdown, No Significant Lesion HEENT: Atraumatic, PERRLA, EOMI Cardiovascular: Regular Rate, Normal S1, Normal S2 Lungs: Clear to Auscultation, Normal Air Movement Abdomen: Normal Bowel Sounds, Soft, No Tenderness Current Medications: Current Medications Sig/Eulalia Start time Last Medication Dose Route Stop Time Status Admin Acetaminophen 650 MG Q6P PRN 12/18 0445 AC PO Calcitriol 0.5 MCG DAILY 12/18 899 AC 12/22 PO 0800 Ceftriaxone Sodium 1,000 MG DAILY 12/20 899 AC 12/22 IV 0832 Doxycycline Hyclate 100 MG BID 12/20 1010 AC 12/22 PO 0800 Ferrous Sulfate 325 MG DAILY 12/18 899 AC 12/22 PO 0800 Fluoxetine HCl 20 MG DAILY 12/18 899 AC 12/22 PO 0800 Folic Acid 1 MG DAILY 12/18 899 AC 12/22 PO 0800 Furosemide 20 MG DAILY 12/21 08 AC 12/22 PO 0800 Magnesium Oxide 400 MG DAILY 12/18 0900 AC 12/22 PO 08 Melatonin 5 MG AT BEDTIME 12/20 2099 AC 12/21 PO 2020 Metoprolol Tartrate 50 MG BID 12/18 2100 AC 12/22 PO 08 Omeprazole 40 MG DAILY AC 12/18 07 AC 12/22 PO 08 Polyethylene Glycol 17 GM DAILY 12/19 1117 AC 12/22 PO 08 Potassium Chloride 10 MEQ DAILY 12/18 09 AC 12/22 PO 08 Senna/Docusate Sodium 1 TAB BID PRN 12/19 1130 AC 12/20 PO 08 Tramadol HCl 50 MG Q4H PRN 12/18 0445 AC 12/21 PO 195 Warfarin Sodium 3 MG COUMADIN 1700 ONE 12/21 1700 DC 12/21 PO 12/21 1701 1811 Last 24 Hrs of Lab/Merrill Results Last 24 Hrs of Labs/Mics: Laboratory Tests 12/22/17 0609: PT 21.9 H, INR 2.00 H Assessment/Plan Assessment: 82-year-old with past medical history of HFpEF (LVEF >60%), B-cell lymphoma, atrial fibrillation on Coumadin, bioprosthetic AVR, DVT, lupus anticoagulant, thalassemia, iron deficiency anemia, GERD, and dementia brought in by ambulance from [facility] for evaluation of shortness of breath, weakness and hypoxia. Patient was previously admitted to [facility] from 07/24/17-08/01/17 for evaluation of weakness, shortness breath, and lower extremity swelling with weight gain and treated for acute decompensated CHF exacerbation, UTI, and digoxin toxicity. She was diuresed, treated with antibiotics, and discontinued from digoxin uptitrated on her beta-shon discharged back to her ECF. Patient is a poor historian and does not return specific details of the day. Collateral information obtained from the F paperwork / W10. Patient was reportedly seen to have increased work of breathing for which an SpO2 was taken that was apparently in the 80's for which she was placed on oxygen and sent to the [place] [facility]. Review of systems She otherwise denies any fever, chills, blurred/double vision, chest pain, palpitations, heartburn, current shortness of breath, abdominal pain, constipation, or urinary symptoms. Objective Vitals: Temp 97.5-97.8, HR 86-142, RR 16, BP 102-120/68-79, SPO2 94-100% on 3.0L Physical exam -General: elderly woman in no acute distress -HEENT: NCAT, PERRL, EOMI, anicteric sclera -Neck: Supple, no JVP, trachea midline, no accessory respiratory muscle use -Cardio: irregularly irregular; rate normal -Pulmonary: Diminished right sided airflow with bilateral crackles -Abdomen: Soft, NT, ND, BS+ -Neuro: Awake and alert, CN II-XII grossly intact -Extremities: trace bilateral lower extremity nonpitting edema, normal pulses Labs/imaging/studies -CBC: WBC 15.3, hemoglobin 12.6, hematocrit 30.5, platelet 170 -BMP: Sodium 138, potassium 3.2, chloride 109, CO2 19, BUN 40, creatinine 0.7, anion gap 10, glucose 78 -LFT: Within normal limits -Miscellaneous: Calcium 6.9, magnesium 1.0, albumin 2.4, BNP 6060, troponin I 0.03 -EKG: Afib with RVR, Left axis deviation, poor r-wave progression, old anterior/ inferior MS -Echocardiogram 07/26/17: LVEF >60% without regional wall motion LVH, moderate/ severe biatrial enlargement, moderate MR/TR, mild -CXR: * Mild pulmonary vascular congestion, large RIGHT pleural effusion with probably underlying infiltrates and/or atelectasis. Follow-up chest PA and lateral recommended when patient's condition permits. Assessment 82-year-old woman with multiple medical problems significant for HFpEF, A. fib, and B-cell lymphoma in remis seen for evaluation of shortness of breath, weakness, and hypoxia. On admission, patient admits to feeling fatigued and otherwise denies any symptoms including current shortness of breath. Vitals on admission are significant for elevated heart rate up to 140s and low normal spO2 on room air 2L. Physical exam demonstrated diminished right lung sounds with bilateral scattered scant crackles. Significant labs include WBC 15.3, K 3.2, Ca 6.9, albumin 2.4, Mg 1.0, BNP 6K, troponin I 0.03, and INR 4.39. CXR demonstrates a large right sided pleural effusion with pulmonary vascular congestion. Problem list -HYPOXIA secondary to acute on Chronic HFpEF and pulmonary infiltrate -Large right sided pleural effusion -Atrial fibrillation with rapid ventricular response -Peripheral vascular disease -Supratherapeutic INR -Hypomagnesenemia -Dementia -History of Atrial fibrillation, on Coumadin -Bioprosthetic aortic valve -History of B-cell lymphoma, "in remission" -History of DVT -History of lupus anticoagulant -Thalassemia -Iron Deficiency Anemia -Osteoporosis -GERD Plan -Continue to monitor patient in telemetry -Strict ins and outs, daily weights -We have discontinued Whitaker catheter as patient is growing ESBL in her urine, no evidence of UTI on UA however, both test done the same day 12/18 -We restarted her home dose Lasix of 20 mg p.o. daily -We evaluated patient's pulmonary effusion with CT chest which showed persistent consolidation and/or atelectasis in the right lower lobe with small to moderate sized right pleural effusion and bronchial wall thickening in the lower lobes which could be a manifestation of inflammation or infection of the airways. Of note, patient did have a white cell count and tachycardia on admission but now has a normal white cell count and has a heart rate in the high 80s. We spoke with interventional radiology, Dr. Herrera, who states that the pleural effusion is not big enough to tap and that changes seen on the scan are likely secondary to pneumonia. We began ceftriaxone and doxycycline on the patient as she does have reaction to the closely related clarithromycin (diarrhea). -Patient's INR today is 2 today after getting 3mg warfarin yesterday. She normally takes 1 mg of Coumadin on Monday and Monday and 2 mg the rest the days. We will continue this dosing schedule. -TRC nebs, supplemental oxygen, goal >92%, taper as tolerated -Continue the beta-shon for her tachycardia as well as hypertension. She is currently on 50 mg twice daily and it is suggested to use Cardizem if needed for better rate control. She normally takes 25 mg at home twice daily. -Care plan has been discussed with the patient's son James Marino and MiraLAX for constipation, patient had bowel movement yesterday. -Continue home meds: Calcitriol, iron, fluoxetine, folic acid, PPO, magnesium, metoprolol, KCl, tramadol -Pain control with acetaminophen as needed -DVT PPx with Coumadin, ALPS -DNR paper on chart Problem List: 1. Aspiration pneumonia 2. Subtherapeutic anticoagulation 3. Pneumonia 4. Acute CHF (congestive heart failure) Pain Ratin Pain Location: na Pain Goal: Remain pain free Pain Plan: na Tomorrow's Labs & Rationales: Melinda Vera MD 12/22/17 1057: Attending MD Review Statement Attending Statement Attending MD Statement: examined this patient, discuss w/resident/PA/CROP PRODUCTION ADVISOR, agreed w/resident/PA/CROP PRODUCTION ADVISOR, reviewed EMR data (avail), discussed with nursing, discussed with case mgmt, reviewed images Attending Assessment/Plan: Overall patient is doing okay. Her INR is therapeutic today. She can leave to the alf. We treated her for her pneumonia with associated pleural effusion and acute diastolic heart failure. Plan will be close outpatient follow-up.
[2017-12-22 08:16] LABS: PT 21.9 SEC (9.4-12.5)
[2017-12-22] MEDS ORDERED: DOXYCYCLINE HY100 M2 PO (09:55)
[2017-12-22 14:16] VITALS: BP 102/50
== END 2017-12-22 14:40 | DRG 291 ==
LOC: ERH 19:18 → 1NO 22:57 → ERHI 22:57 → ERH 23:43 → ERHI 12-18 13:18 → ENRESERV 12-18 15:49 → ENTRNSPT 12-18 16:25 → EDTRNSPTSTS 12-18 16:46 → EDTRNSPT 12-18 16:46 → CMPTRNSPT 12-18 17:02 → 1NO 12-18 17:05 → ENPENDDIS 12-22 09:49 → 1NO 12-22 14:40
PROVIDERS: Internal Medicine Interventional Cardiology; Physician Assistant Medical; Student in an Organized Health Care Education/Training Program
DX: I11.0 Hypertensive heart disease with heart failure (principal); E43 Unspecified severe protein-calorie malnutrition; J96.01 Acute respiratory failure with hypoxia; J69.0 Pneumonitis due to inhalation of food and vomit; D68.62 Lupus anticoagulant syndrome; I50.33 Acute on chronic diastolic (congestive) heart failure; J91.8 Pleural effusion in other conditions classified elsewhere; E83.42 Hypomagnesemia; I73.9 Peripheral vascular disease, unspecified; I48.2 Chronic atrial fibrillation; F03.90 Unspecified dementia, unspecified severity, without behavioral disturbance, psychotic disturbance, mood disturbance, and anxiety; Z79.01 Long term (current) use of anticoagulants; Z95.3 Presence of xenogenic heart valve; E83.51 Hypocalcemia; K21.9 Gastro-esophageal reflux disease without esophagitis; D56.9 Thalassemia, unspecified; M81.0 Age-related osteoporosis without current pathological fracture; Z85.72 Personal history of non-Hodgkin lymphomas; Z66 Do not resuscitate; K59.00 Constipation, unspecified; E87.6 Hypokalemia; Z86.718 Personal history of other venous thrombosis and embolism
CPT/HCPCS: 1NP; 1NSP; ERO; 36415; 36592; 71045; 81003; 82436; 87086; 93005; 93010; 96374; 96375; 97116-GO; 97161-GP; 97530-GO; J0696; J1940; J3490